=== PATIENT | male | born 1965 | race African-American/Black ===

== ENCOUNTER 2017-04-18 14:58 | Emergency (ER) | payer OTHER ==
[~2017-04-18] VITALS: Ht 182.9 cm; Wt 92.5 kg
[2017-04-18 15:01] VITALS: TEMP 36.9; Ht 182.9 cm; Wt 92.5 kg
--- NOTE | 2017-04-18 15:32 | EMERGENCY ROOM VISIT NOTE ---
History Report prepared by Laith: Berto Phillips Under the Supervision of: Dr. Rema Martinez D.O. First contact with patient: 15:09 Chief Complaint: STROKE SYMPTOMS Stated Complaint: BLACKED OUT, MEMORY LOSS History of Present Illness The patient is a 52 year old male who presents to the Emergency Room with complaints of short term memory loss that occurred today. This has been happening to him since December of 2015. He has episodes where his face goes blank, he begins chewing, and then asks questions asking where he is, why he is there, etc. He has had about 12 episodes over the year, and his notes that they are getting closer together. Today, his sister states this happened again and lasted for 30 minutes. It began about 2 hours ago. She notes that their father has had some short term memory loss in his history as well with three mini strokes. The patient's symptoms have resolved at this time, and he is at baseline. He is experiencing some rhinorrhea. He has a history of prostate cancer with metastasis to the bone and prostatectomy. He was recently on Penicillin for cellulitis on his left foot. On December 06, 2016 he received a MRI of his brain that was unremarkable. states he also had an EEG after that was unremarkable. He has not seen neurology since due to the evaluation of his prostate cancer. He denies any recent illness, but deny any recent medication changes, no recent trauma. Source of History: patient Onset: 2 hours ago Position: other (Mental State) Symptom Intensity: 30 minutes Quality: other (Short term memory loss) Timing: intermittent (since last year), resolved Note: He has some rhinorrhea. He denies any other symptoms. Review of Systems See HPI for pertinent positives & negatives. A total of 10 systems reviewed and were otherwise negative. Past Medical & Surgical Medical Problems: (1) Prostate cancer metastatic to bone Surgical Problems: (1) H/O prostatectomy Family History Omitted secondary to the patient's age. Social History Smoking Status: Former Smoker Drug Use: none Marital Status: Housing Status: lives with family Occupation Status: employed Current/Historical Medications Scheduled B-Complex Vitamins (Vitamin B Complex), 1 TAB PO QAM Bicalutamide (Casodex), 50 MG PO QPM Cephalexin (Keflex), 1 CAP PO BID Cholecalciferol (Vitamin D3), 1,000 INTER.UNIT PO BID Goserelin Acetate (Zoladex), 36 MG IM Q3MO Zoledronic Acid (Reclast), 1 DOSE IV [id number] Allergies Coded Allergies: No Known Allergies (Unverified , 04/18/17) Physical Exam Vital Signs Date Time Temp Pulse Resp B/P (MAP) Pulse Ox O2 Delivery O2 Flow Rate FiO2 04/18/17 18:23 76 18 146/96 98 Room Air 04/18/17 15:22 79 04/18/17 15:01 36.9 78 18 143/91 96 Room Air Physical Exam GENERAL: alert, well appearing, well nourished, no distress, non-toxic EYE EXAM: normal conjunctiva, PERRL and EOM's intact OROPHARYNX: no exudate, no erythema, lips, buccal mucosa, and tongue normal and mucous membranes are moist NECK: supple, no nuchal rigidity, no adenopathy, non-tender LUNGS: Clear to auscultation. Normal chest wall mechanics HEART: no murmurs, S1 normal and S2 normal ABDOMEN: abdomen soft, non-tender, normo-active bowel sounds, no masses, no rebound or guarding. BACK: Back is symmetrical on inspection and there is no deformity, no midline tenderness, no CVA tenderness. SKIN: no rashes and no bruising UPPER EXTREMITIES: upper extremities are grossly normal. LOWER EXTREMITIES: No pitting edema. NEURO EXAM: Normal sensorium, cranial nerves II-XII intact, normal speech, no weakness of arms, no weakness of legs. No drift. Finger to nose intact. Gross sensation intact. NIH stroke score is 0. Medical Decision & Procedures ER Provider Diagnostic Interpretation: Radiology results have been interpreted by the radiologist and reviewed by me. MRI OF THE BRAIN WITHOUT AND WITH IV CONTRAST CLINICAL HISTORY: Acute staring spell. Amnesia. Possible seizure. COMPARISON STUDY: No previous studies for comparison. TECHNIQUE: MRI of the brain was performed from the vertex to the skull base utilizing various T1 and T2 weighted sequences. Following the IV administration of 9 mL of Gadavist contrast, additional enhanced images were obtained. FINDINGS: Sagittal T1, axial diffusion, proton density and T2 weighted axial, coronal FLAIR, and pre and post axial T1-weighted images were acquired. These were supplemented with post gadolinium coronal T1 weighted images. No intra or extra-axial mass lesions are visualized. Axial diffusion-weighted images reveal no evidence of acute or subacute infarction. A linear focus of increased signal on the axial diffusion-weighted images within the right parietal lobe as visualized in image #17 is felt to be artifactual. There is no evidence of ventricular dilatation. Proton density T2-weighted and FLAIR images reveal a few tiny foci of increased FLAIR signal, a finding of doubtful acute clinical significance, and not out of the ordinary for age. The largest is a 3 mm focus located just medial to the left insular cortex. There are no abnormal flow voids. There is no evidence of pathologic enhancement. IMPRESSION: 1. No acute intracranial findings 2. No evidence of intracranial mass 3. No evidence of acute or subacute infarction 4. No evidence of hydrocephalus Electronically signed by: Poncho Villatoro M.D. 04/18/2017 6:19 PM Dictated Date/Time: 04/18/2017 6:14 PM Laboratory Results 04/18/17 15:39 Red Blood Count 4.90, Mean Corpuscular Volume 88.2, Mean Corpuscular Hemoglobin 29.0, Mean Corpuscular Hemoglobin Concent 32.9, Mean Platelet Volume 9.0, Neutrophils (%) (Auto) 60.5, Lymphocytes (%) (Auto) 27.0, Monocytes (%) (Auto) 8.6, Eosinophils (%) (Auto) 3.0, Basophils (%) (Auto) 0.6, Neutrophils # (Auto) 3.88, Lymphocytes # (Auto) 1.73, Monocytes # (Auto) 0.55, Eosinophils # (Auto) 0.19, Basophils # (Auto) 0.04 04/18/17 15:39 Test 04/18/17 15:39 04/18/17 15:51 04/18/17 16:01 White Blood Count 6.41 K/uL (4.8-10.8) Red Blood Count 4.90 M/uL (4.7-6.1) Hemoglobin 14.2 g/dL (14.0-18.0) Hematocrit 43.2 % (42-52) Mean Corpuscular Volume 88.2 fL (80-100) Mean Corpuscular Hemoglobin 29.0 pg (25-34) Mean Corpuscular Hemoglobin Concent 32.9 g/dl (32-36) Platelet Count 255 K/uL (130-400) Mean Platelet Volume 9.0 fL (7.4-10.4) Neutrophils (%) (Auto) 60.5 % Lymphocytes (%) (Auto) 27.0 % Monocytes (%) (Auto) 8.6 % Eosinophils (%) (Auto) 3.0 % Basophils (%) (Auto) 0.6 % Neutrophils # (Auto) 3.88 K/uL (1.4-6.5) Lymphocytes # (Auto) 1.73 K/uL (1.2-3.4) Monocytes # (Auto) 0.55 K/uL (0.11-0.59) Eosinophils # (Auto) 0.19 K/uL (0-0.5) Basophils # (Auto) 0.04 K/uL (0-0.2) RDW Standard Deviation 42.4 fL (36.4-46.3) RDW Coefficient of Variation 13.3 % (11.5-14.5) Immature Granulocyte % (Auto) 0.3 % Immature Granulocyte # (Auto) 0.02 K/uL (0.00-0.02) Anion Gap 5.0 mmol/L (3-11) Est Creatinine Clear Calc Drug Dose 84.3 ml/min Estimated GFR () 87.7 Estimated GFR (Non- 75.7 BUN/Creatinine Ratio 9.8 (10-20) Calcium Level 9.1 mg/dl (8.5-10.1) Magnesium Level 2.3 mg/dl (1.8-2.4) Total Bilirubin 0.3 mg/dl (0.2-1) Aspartate Amino Transf (AST/SGOT) 21 U/L (15-37) Alanine Aminotransferase (ALT/SGPT) 23 U/L (12-78) Alkaline Phosphatase 190 U/L (45-117) Troponin I < 0.015 ng/ml (0-0.045) Total Protein 8.2 gm/dl (6.4-8.2) Albumin 3.8 gm/dl (3.4-5.0) Globulin 4.4 gm/dl (2.5-4.0) Albumin/Globulin Ratio 0.9 (0.9-2) Thyroid Stimulating Hormone (TSH) 2.110 uIu/ml (0.300-4.500) Urine Color YELLOW Urine Appearance CLEAR (CLEAR) Urine pH 5.5 (4.5-7.5) Urine Specific [place] 1.018 (1.000-1.030) Urine Protein NEG (NEG) Urine Glucose (UA) NEG (NEG) Urine Ketones NEG (NEG) Urine Occult Blood TRACE (NEG) Urine Nitrite NEG (NEG) Urine Bilirubin NEG (NEG) Urine Urobilinogen NEG (NEG) Urine Leukocyte Esterase MODERATE (NEG) Urine WBC (Auto) >30 /hpf (0-5) Urine RBC (Auto) 0-4 /hpf (0-4) Urine Hyaline Casts (Auto) 1-5 /lpf (0-5) Urine Epithelial Cells (Auto) 0-5 /lpf (0-5) Urine Bacteria (Auto) 1+ (NEG) Urine Opiates Screen NEG (NEG) Urine Methadone, Qualitative NEG (NEG) Urine Barbiturates NEG (NEG) Urine Phencyclidine (PCP) Level NEG (NEG) Ur Amphetamine/Methamphetamine NEG (NEG) MDMA (Ecstasy) Screen NEG (NEG) Urine Benzodiazepines Screen NEG (NEG) Urine Cocaine Metabolite NEG (NEG) Urine Marijuana (THC) NEG (NEG) Ethyl Alcohol mg/dL < 3.0 mg/dl (0-3) Laboratory results per my review. Medications Administered Medications (Trade) Dose Ordered Sig/Ronald Route Start Time Stop Time Status Last Admin Dose Admin Cephalexin Monohydrate (Keflex Cap) 500 mg NOW ONCE PO 04/18/17 18:30 04/18/17 18:31 DC 04/18/17 19:10 500 MG ECG Indication: other (Stroke-like symptoms) Rate (beats per minute): 68 Rhythm: sinus rhythm Findings: Q waves (lead 3), no acute ischemic change, no ectopy, other (Normal intervals, normal axis) ED Course 1509: The patient was evaluated in room B6. A complete history and physical exam was performed. 1814: Gadavist 9 mmol IV 183: Keflex Cap 500 mg PO 1900: I updated the patient at this time. He feels normal and at baseline. His family confirms. 1916: Upon reevaluation, the patient is feeling better. I discussed the findings and the treatment plan with the patient. He verbalizes agreement and understanding. He was discharged home. Medical Decision Differential diagnosis: Etiologies such as metabolic, infection, hypoglycemia, electrolyte abnormalities , cardiac sources, intracerebral event, toxicologic, neurologic, as well as others were entertained. No evidence of TIA/CVA, symptoms had resolved by the time of my evaluation here. Unclear if possible partial seizures. Doubt infectious etiology, doubt electrolyte etiology, doubt medication reaction, doubt other heavy metal toxicity or toxidrome. Patient well-appearing with a nonfocal and normal neuro exam at bedside. MRI and labs reassuring. Patient plans to return to [place] on Saturday. Given copies of all results and encouraged to follow-up with family doctor and neurology as soon as possible upon arrival home. Given prior prostate surgery and findings on UA, patient covered for possible UTI. I do not feel this is contribute into patient's intermittent lapses in memory over the course of last year. Discussed with him use of antibiotics, close follow- up with his urologist regarding his continued treatment as well as his urinary tract infection. Medication Reconcilliation Current Medication List: was personally reviewed by me Blood Pressure Screening Patient's blood pressure: Elevated blood pressure Blood pressure disposition: Elevated BP felt to be situational Impression Primary Impression: Memory difficulties Additional Impression: UTI (urinary tract infection) Scribe Attestation The scribe's documentation has been prepared under my direction and personally reviewed by me in its entirety. I confirm that the note above accurately reflects all work, treatment, procedures, and medical decision making performed by me. Departure Information Dispostion Home / Self-Care Prescriptions Cephalexin (KEFLEX) 500 Mg Cap 1 CAP PO BID for 7 Days, #14 CAP Prov: Rema Martinez DO 04/18/17 Forms HOME CARE DOCUMENTATION FORM, IMPORTANT VISIT INFORMATION Patient Instructions [facility] Additional Instructions Please follow-up with your doctors in [place] as soon as you return home. Please continue your usual medicines. Please take the antibiotics as prescribed and drink plenty of water. If you develop any recurrent symptoms, develop trouble with speech, walking, weakness, dizziness, vision changes, headaches, fevers, back pain, vomiting, abdominal pain, or you have any other new or concerning symptoms, please return to the emergency room. Problem Qualifiers Additional Impression: UTI (urinary tract infection) Urinary tract infection type: acute cystitis Hematuria presence: with hematuria Qualified Codes: N30.01 - Acute cystitis with hematuria
[2017-04-18 15:58] LABS: BASO % 0.6 %; BASO ABS # 0.04 K/uL (0-0.2); COMPLETE YES; HEMATOCRIT 43.2 % (42-52); IG% 0.3 %; LYMPH ABS # 1.73 K/uL (1.2-3.4); MEAN CELL VOLUME 88.2 fL (80-100); MEAN CORPUSCULAR HGB CONC 32.9 g/dl (32-36); MONO % 8.6 %; NEUT % 60.5 %; PLATELET COUNT 255 K/uL (130-400); WHITE BLOOD COUNT 6.41 K/uL (4.8-10.8)
[2017-04-18] MEDS ORDERED: CHOL1000 PO (15:58)
[2017-04-18] MEDS ORDERED: BICA50TA2 PO (15:58)
[2017-04-18] MEDS ORDERED: ZOLE5INJ IV (15:58)
[2017-04-18] MEDS ORDERED: B-COTAB18 PO (15:58)
[2017-04-18] MEDS ORDERED: GOSE3.6I IM (15:58)
[2017-04-18 16:14] LABS: URINE APPEARANCE CLEAR (CLEAR); URINE BILIRUBIN NEG (NEG); URINE COLOR YELLOW; URINE EPITHELIAL CELL AUTO 0-5 /lpf (0-5); URINE NITRITE NEG (NEG); URINE PH 5.5 (4.5-7.5); URINE SPECIFIC GRAVITY 1.018 (1.000-1.030); UROBILINOGEN NEG (NEG); ZZUR CULT IF INDIC CLEAN CATCH YES
[2017-04-18 16:19] LABS: MANUAL MICROSCOPIC REQUIRED? NO; REVIEW REQ? NO
[2017-04-18 16:28] LABS: ALT/SGPT 23 U/L (12-78); BLOOD UREA NITROGEN 11 mg/dl (7-18); BUN/CREATININE RATIO 9.8 (10-20); CALCIUM 9.1 mg/dl (8.5-10.1); CARBON DIOXIDE 28 mmol/L (21-32); CHLORIDE 104 mmol/L (98-107); GLUCOSE 82 mg/dl (70-99); MAGNESIUM 2.3 mg/dl (1.8-2.4); SODIUM 137 mmol/L (136-145)
[2017-04-18 16:39] LABS: ALB/GLOB RATIO 0.9 (0.9-2); ALKALINE PHOSPHATASE 190 U/L (45-117); AST/SGOT 21 U/L (15-37)
[2017-04-18 16:47] LABS: BENZODIAZEPINE, URINE NEG (NEG); COCAINE,URINE NEG (NEG); PHENCYCLIDINE, URINE NEG (NEG)
[2017-04-18] MEDS ORDERED: GADAVIST IV PRN (18:15)
--- NOTE | 2017-04-18 18:20 | DIAGNOSTIC IMAGING REPORT ---
MRI OF THE BRAIN WITHOUT AND WITH IV CONTRAST CLINICAL HISTORY: Acute staring spell. Amnesia. Possible seizure. COMPARISON STUDY: No previous studies for comparison. TECHNIQUE: MRI of the brain was performed from the vertex to the skull base utilizing various T1 and T2 weighted sequences. Following the IV administration of 9 mL of Gadavist contrast, additional enhanced images were obtained. FINDINGS: Sagittal T1, axial diffusion, proton density and T2 weighted axial, coronal FLAIR, and pre and post axial T1-weighted images were acquired. These were supplemented with post gadolinium coronal T1 weighted images. No intra or extra-axial mass lesions are visualized. Axial diffusion-weighted images reveal no evidence of acute or subacute infarction. A linear focus of increased signal on the axial diffusion-weighted images within the right parietal lobe as visualized in image #17 is felt to be artifactual. There is no evidence of ventricular dilatation. Proton density T2-weighted and FLAIR images reveal a few tiny foci of increased FLAIR signal, a finding of doubtful acute clinical significance, and not out of the ordinary for age. The largest is a 3 mm focus located just medial to the left insular cortex. There are no abnormal flow voids. There is no evidence of pathologic enhancement. IMPRESSION: 1. No acute intracranial findings 2. No evidence of intracranial mass 3. No evidence of acute or subacute infarction 4. No evidence of hydrocephalus Electronically signed by: Poncho Villatoro M.D. 04/18/2017 6:19 PM Dictated Date/Time: 04/18/2017 6:14 PM
[2017-04-18 18:23] VITALS: BP 146/96; PULSE 76; O2SAT 98
[2017-04-18] MEDS ORDERED: CEPHALEXIN MONOHYDRATE 250 MG CAP PO ONE (18:30)
[2017-04-18] MEDS ORDERED: CEPH-571 PO (19:04)
== END 2017-04-18 19:05 | disposition home or self-care (01) ==
LOC: C.EDB 15:00
DX: R41.3 Other amnesia (principal); N30.01 Acute cystitis with hematuria; C61 Malignant neoplasm of prostate; Z87.891 Personal history of nicotine dependence

== ENCOUNTER 2019-05-27 13:34 | Inpatient (IN) ==
[2019-05-27] MEDS ORDERED: SODIUM CHLORIDE 0.9% 1000ML 1,000 ML IV SCH (14:00)
[2019-05-27] MEDS ORDERED: ONDANSETRON INJ 2 MG/ML 2 ML VIAL IV STA (14:05)
[2019-05-27] MEDS ORDERED: HYDROmorphone INJ 1 MG/ML SYRINGE IV PRN (14:05)
[2019-05-27] MEDS ORDERED: SODIUM CHLORIDE 0.9% 250 ML IV PRN ×4 (14:24→23:39)
[2019-05-27 14:30] LABS: INR 1.2 (0.9-1.1); Partial Thromboplastin Time 26.8 Seconds (21.0-31.0); Prothrombin Time 11.9 Seconds (9.0-12.0)
[2019-05-27] MEDS ORDERED: PANTOprazole 80 MG in DEXTROSE 5% 100 ML IV SCH (14:30)
[2019-05-27 14:32] LABS: iSTAT Creatinine 0.6 mg/dl (0.6-1.3); iSTAT Hemoglobin 5.1 g/dl (14.0-18.0); iSTAT Ionized Calcium 1.09 mmol/l (1.12-1.32); iSTAT Potassium 3.4 mEq/L (3.3-5.0)
[2019-05-27 14:40] LABS: Hemoglobin 5.6 g/dL (14.0-18.0); Mean Corpuscular Hemoglobin 29.6 pg (25-34); Mean Corpuscular Hgb Conc 31.1 g/dL (32-36); Mean Corpuscular Volume 95.2 fL (80-100); Mean Platelet Volume 9.5 fL (7.4-10.4); Nucleated RBC # (auto) 0.47 K/uL (0-0); Nucleated RBC % (auto) 7.2 %; Platelet Count 80 K/uL (130-400); RDW Coefficient of Variation 19.8 % (11.5-14.5); RDW Standard Deviation 66.7 fL (36.4-46.3); Red Blood Count 1.89 M/uL (4.7-6.1); White Blood Count 6.46 K/uL (4.8-10.8)
[2019-05-27 14:42] LABS: Alanine Aminotransferase 15 U/L (12-78); Albumin Level 2.9 gm/dl (3.4-5.0); Aspartate Aminotransferase 42 U/L (15-37); BUN Creatinine Ratio 10.1 (10-20); Blood Urea Nitrogen 8 mg/dl (7-18); Calcium 8.3 mg/dl (8.5-10.1); Carbon Dioxide 26 mmol/L (21-32); Chloride 105 mmol/L (98-107); Creatinine Clr Calc Pharmacy 118.7 ml/min; Est GFR (African American) 119.5; Est GFR (Non-African American) 103.1; Glucose 93 mg/dl (70-99); Potassium 3.3 mmol/L (3.5-5.1); Sodium 137 mmol/L (136-145)
[2019-05-27 14:45] LABS: ALC (manual) 0.92 K/uL (1.2-3.4); ANC (manual) 4.11 K/uL (1.4-6.5); Eosinophils # (manual) 0.17 K/uL (0-0.5); Eosinophils % (manual) 2.7 %; Giant Platelets 1+; Lymphocytes # (manual) 0.92 K/uL (1.2-3.4); Lymphocytes % (manual) 14.2 %; Metamyelocytes # (manual) 0.46 K/uL (0-0); Metamyelocytes % (manual) 7.1 %; Monocytes % (manual) 6.2 %; Myelocytes % (manual) 6.2 %; Neutrophils # (manual) 4.11 K/uL (1.4-6.5); Neutrophils % (manual) 63.6 %; Platelet Estimate Decreased (Normal); Tear Drop Cells 2+
[2019-05-27] MEDS ORDERED: PANTOprazole 40 MG in DEXTROSE 5% 100 ML IV SCH (14:45)
[2019-05-27 14:47] LABS: Albumin Globulin Ratio 0.8 (0.9-2); Alkaline Phosphatase 392 U/L (45-117); Bilirubin,Total 0.4 mg/dl (0.2-1); Globulin 3.6 gm/dl (2.5-4.0); Total Protein 6.5 gm/dl (6.4-8.2); Troponin I 0.022 ng/ml (0-0.045)
[2019-05-27 15:16] LABS: Creatine Kinase 96 U/L (39-308); Creatine Kinase MB < 1.0 ng/ml (0.5-3.6)
[2019-05-27] MEDS ORDERED: IOVERSOL 100ml IV PRN (15:19)
--- NOTE | 2019-05-27 15:43 | CT Scan Report ---
CT OF THE HEAD WITHOUT CONTRAST CLINICAL HISTORY: Confusion. Falls. Metastatic prostate cancer. COMPARISON STUDY: MRI of the brain April 18, 2017. TECHNIQUE: Helical axial images of the head were obtained without IV contrast. Automated exposure con trol was utilized for the study. A dose lowering technique was utilized adhering to the principles o f ALARA. FINDINGS: No acute intracranial hemorrhage, midline shift or mass effect is present. The ventricular system is unremarkable. The basilar cisterns are patent. No extra-axial collections are present. Ther e are no findings to suggest acute dural sinus thrombosis or acute territorial infarct. No significan t calvarial abnormalities are present. Note is made of mild sinus mucosal thickening. IMPRESSION: 1. No acute intracranial findings. 2. No calvarial fracture. Electronically signed by: Talib Dye M.D. 05/27/2019 3:42 PM
--- NOTE | 2019-05-27 15:50 | CT Scan Report ---
CT OF THE CERVICAL SPINE WITHOUT CONTRAST CLINICAL HISTORY: Neck pain following falls. Prostate cancer. COMPARISON STUDY: No previous studies for comparison. TECHNIQUE: Helical axial images of the cervical spine were obtained without IV contrast. Sagittal a nd coronal reconstructions were viewed. Automated exposure control was utilized for the study. A do se lowering technique was utilized adhering to the principles of ALARA. FINDINGS: No acute cervical spine fracture is noted. There is slight reversal of the normal cervical lordosis. Moderate multilevel degenerative disc disease and facet arthrosis is present. Several scler otic lesions are noted, most notably within the T1 vertebral body. No pathologic fracture is noted. T here is trace prevertebral edema. IMPRESSION: 1. No acute cervical spine fracture or subluxation. 2. Multiple sclerotic skeletal lesions consistent with skeletal metastatic disease. 3. Trace prevertebral edema, a nonspecific finding. Electronically signed by: Talib Dye M.D. 05/27/2019 3:48 PM
--- NOTE | 2019-05-27 16:04 | CT Scan Report ---
CT OF THE THORACIC SPINE CLINICAL HISTORY: Back pain. Falls. Metastatic prostate cancer. COMPARISON STUDY: No previous studies for comparison. TECHNIQUE: Helical axial images of the thoracic spine were obtained. Sagittal and coronal reconstru ctions were viewed. Automated exposure control was utilized for the study. A dose lowering techniqu e was utilized adhering to the principles of ALARA. FINDINGS: Please note that the chest CT will be reported separately. The thoracic spine is anatomic. There is no acute fracture. Innumerable sclerotic metastases are present. Central canal and neural fo ramen are suboptimally assessed by CT. There is no pathologic fracture. No definite epidural componen t is identified. Small left and trace right pleural effusions are noted. IMPRESSION: 1. No acute thoracic spine fracture. 2. Extensive blastic metastases. No pathologic fracture. 3. Small left and trace right pleural effusions. Electronically signed by: Talib Dye M.D. 05/27/2019 4:03 PM
--- NOTE | 2019-05-27 16:05 | CT Scan Report ---
CT chest w con CLINICAL HISTORY: 54 years-old Male presenting with metastatic prostate cancer. TECHNIQUE: Multidetector CT imaging of the chest was performed after the administration of intravenou s contrast. IV contrast: 94 mL of Optiray 320. One or more dose lowering techniques were used consist ent with the principles of ALARA (as low as reasonably achievable), including automatic exposure cont rol, mA or kV adjustment to individual patient size, and/or use of iterative reconstruction. COMPARISON: None. CT DOSE (mGy.cm): The estimated cumulative dose is 2309.08. 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 Soft tissues: Normal thyroid and thoracic inlet. No axillary, supraclavicular, mediastinal, or hilar lymphadenopathy. Normal aorta. Borderline enlargement of the heart. Trace pericardial effusion. Small left pleural effusion. Trace right pleural effusion. Upper abdomen normal. Lungs and airways: No pneumothorax. Central airways patent. Pulmonary arteries mildly enlarged relati ve to adjacent bronchi. No interlobular septal thickening. Dependent consolidation in the bilateral l ower lobes, left greater than right, likely passive atelectasis in the setting of the effusions. Trac e atelectasis associated with an osseous lesion on the left described below. Musculoskeletal: Sclerotic osseous lesion with periosteal reaction in the extrapleural along of the l ateral left fifth rib. This exerts mild mass effect on the subjacent posterior segment of the left up per lobe. This appears to invade the extrapleural fat. Pleural involvement is difficult to exclude. S everal additional sclerotic lesions are evident without the same degree of periosteal reaction/extrao sseous extension. These are noted in several ribs and vertebral bodies, some examples marked on the i mages the lesions are diffuse. IMPRESSION: 1. Diffuse blastic osseous metastatic disease. The osseous lesion at the lateral left fifth rib has extensive periosteal reaction or extraosseous extension in the extrapleural region. It is difficult t o exclude pleural invasion. 2. No lymphadenopathy or other evidence of intrathoracic metastases. 3. Bilateral pleural effusions, left greater than right. 4. Minimal bibasilar atelectasis. 5. Borderline cardiomegaly. Electronically signed by: Tino Martinez M.D. 05/27/2019 4:04 PM
--- NOTE | 2019-05-27 16:05 | CT Scan Report ---
LUMBAR SPINE CT CT DOSE: HISTORY: Pt co low back pain TECHNIQUE: Multiaxial CT images of the lumbar spine were performed and reformatted in the sagittal an d coronal plane without the use of contrast. A dose lowering technique was utilized adhering to the principles of ALARA. COMPARISON: None. FINDINGS: No acute fracture or subluxation. Multiple scattered osteoblastic metastatic lesions are se en throughout the lumbar spine and sacrum. Focal superior endplate indentations at L2-L3 favor Schmor l's nodes. This spaces are relatively preserved. Mild facet degenerative changes within the lower lum bar spine. Mild to moderate bilateral neural foraminal narrowing within the lower lumbar spine due to the disc bulges and facet hypertrophy. Left-sided nephrolithiasis. Mild subcutaneous edema. IMPRESSION: 1. No acute fracture or subluxation. 2. Multiple scattered osteoblastic metastatic lesions seen throughout the lumbar spine and sacrum. Electronically signed by: Regino Sharif M.D. 05/27/2019 4:04 PM
--- NOTE | 2019-05-27 16:12 | CT Scan Report ---
CT OF THE ABDOMEN AND PELVIS WITH CONTRAST CLINICAL HISTORY: Metastatic prostate cancer. Falls. Confusion. COMPARISON STUDY: None. TECHNIQUE: Following IV administration of 94 mL of Optiray-320, axial images of the abdomen and pelvi s were obtained from the lung bases to the proximal femurs. Images were reviewed in the axial, sagitt al, and coronal planes. IV contrast was administered without complication. Automated exposure contro l was utilized for the study. A dose lowering technique was utilized adhering to the principles of A RIO. FINDINGS: The chest will be reported separately. There is no evidence for traumatic injury to the sahara er, spleen, adrenal glands, kidneys and pancreas. The kidneys are lobulated. A 4 mm left renal calcul us is present. There is no hydronephrosis. There is no evidence for a bowel obstruction. No abdominal or pelvic lymphadenopathy is present. The prostate is surgically absent. Innumerable sclerotic lesio ns are identified within visualized skeletal structures. No acute fracture is identified. Mild loss o f height involving the superior endplates of several lumbar vertebra is noted. This finding is not ac narda. IMPRESSION: 1. No acute traumatic findings within the abdomen or pelvis. 2. Extensive skeletal metastases. 3. 4 mm left renal calculus. Electronically signed by: Talib Dye M.D. 05/27/2019 4:11 PM
--- NOTE | 2019-05-27 16:54 | Emergency Department Note ---
Entered by Rip Boyd acting as a scribe for Ruslan Deleon MD History of Present Illness General Chief complaint: Shortness of Breath/Dyspnea Stated complaint: SOB, HGB OF 5 Source: patient History of Present Illness Onset (ago): day(s) 1 Location: abdomen Pain Consistency: + other (two episodes) Maximum Pain Intensity: 5 Quality: + other (black, tarry stool ) Associated symptoms: + other (+low hemoglbin; +lower back pain; -abdominal pain ) The patient is a 54 year old male, with past medical history of metastatic prostate cancer and transient epileptic amnesia, who presents to the Emergency Room with complaints of two episodes of black, tarry stool beginning yesterday. The patient states he was referred to the ED from Dr. Benites's office after his hemoglobin was found to be 5 at his office. The patient also notes he has had intermittent lower back pain over the past month. The patient reports he used to see Dr. Montejo to manage his prostate cancer back in 2016. The patient notes he has been in [place] since for cancer treatment. The patient notes he had a blood transfusion in the past in December of 2016. The patient denies abdominal pain. Home Medications Home Medications Medication Instructions Recorded Confirmed Type cod liver oil 1 cap PO QAM 05/27/19 05/27/19 History epoetin neptali [Epogen] 4,000 unit SUBCUT MOWEFR 05/27/19 05/27/19 History ferrous sulfate 325 mg PO QAM 05/27/19 05/27/19 History goserelin [Zoladex] 3.6 mg SUBCUT MONTHLY 05/27/19 05/27/19 History morphine 10 mg PO UD PRN 05/27/19 05/27/19 History morphine 60 mg PO Q12H 05/27/19 05/27/19 History multivitamin 1 tab PO QAM 05/27/19 05/27/19 History oxcarbazepine [Trileptal] 300 mg PO BID 05/27/19 05/27/19 History Allergies Allergy/AdvReac Type Severity Reaction Status Date / Time No Known Allergies Allergy Unverified 05/27/19 14:46 Past Med/Surg History Medical History Prostate cancer metastatic to bone (Chronic) Family History Other No significant family history Social History Preferred Language: Irish Communication Ability: Effective Patternmaker Bench Required: No Beliefs That Will Affect Care: None Current Living Situation: Spouse Feels Safe at Home: Yes Smoking Status: Former smoker Hx Alcohol Use: No Hx Substance Use: No Review of Systems See HPI for pertinent positives & negatives. and A total of 10 systems reviewed and were otherwise negative Physical Exam Vital Signs Vital Signs - 24 hr 05/27/19 13:38 05/27/19 15:15 Temperature 36.7 C Temperature Source Oral Sepsis Recent Fever Within 48 Hours No Sepsis New/Unexplained Change in Mental Status No Sepsis Action Taken by Nursing No Action Required Pulse Rate 90 Pulse Rate [Right Finger] 72 Respiratory Rate 16 18 Blood Pressure 124/69 Blood Pressure [Right Arm] 138/77 Blood Pressure Mean 87 Blood Pressure Mean [Right Arm] 97 Pulse Oximetry 99 98 Oxygen Delivery Method Room Air GENERAL: Awake, alert, pale in appearance, in no acute distress HENT: Normocephalic, atraumatic. Oropharynx unremarkable. EYES: Normal conjunctiva. Sclera non-icteric. NECK: Supple. No nuchal rigidity. FROM. No JVD. RESPIRATORY: Clear to auscultation. CARDIAC: Regular rate, normal rhythm. Extremities warm and well perfused. Pulses equal. ABDOMEN: Soft, non-distended. No tenderness to palpation. No rebound or guarding. No masses. RECTAL: Black, tarry stool, heme positive. No masses felt. MUSCULOSKELETAL: Chest examination reveals no tenderness. The back is symmetrical on inspection without obvious abnormality. There is no CVA tenderness to palpation. No joint edema. LOWER EXTREMITIES: Calves are equal size bilaterally and non-tender. No edema. No discoloration. NEURO: Normal sensorium. No sensory or motor deficits noted. SKIN: No rash or jaundice noted. Course 1354: Past medical records reviewed. The patient was evaluated in room C3. A complete history and physical exam was performed. 1515: I reviewed the patient's case with Dr. Gaspra[facility] Hospitalist. Dr. Gaspar will evaluate the patient for further management. Consultations Consultation #1: I reviewed the patient's case with Dr. Gaspar-[facility] Hospitalist. Dr. Gaspar will evaluate the patient for further management. Time: 15:15 Administered Medications Acetaminophen (Tylenol) 650 mg PO Q4H PRN PRN Reason: Pain or Fever Stop: 06/26/19 18:02 Last Admin: 05/29/19 13:58 Dose: 650 mg Documented by: [id number] Admin: 05/29/19 08:12 Dose: 650 mg Documented by: [id number] Admin: 05/28/19 19:33 Dose: 650 mg Documented by: [id number] Admin: 05/28/19 10:30 Dose: 650 mg Documented by: [id number] Admin: 05/27/19 22:34 Dose: 650 mg Documented by: [id number] Acetaminophen (Tylenol) 650 mg PO Q4H PRN PRN Reason: Pain Stop: 06/27/19 19:22 Last Admin: 05/29/19 03:56 Dose: 650 mg Documented by: [id number] Ferrous Sulfate (Feosol) 325 mg PO QAM [facility] Stop: 06/27/19 08:59 Last Admin: 05/29/19 08:13 Dose: 325 mg Documented by: [id number] Admin: 05/28/19 11:27 Dose: Not Given Documented by: [id number] Sodium Chloride (Nss 1000ml) 1,000 mls @ 80 mls/hr IV .[id number] JEREMÍAS Stop: 06/27/19 11:29 Last Infusion: 05/29/19 14:01 Dose: 80 mls/hr Documented by: [id number] Admin: 05/29/19 14:00 Dose: 15 mls/hr Documented by: [id number] Infusion: 05/29/19 14:00 Dose: 80 mls/hr Documented by: [id number] Infusion: 05/29/19 11:07 Dose: 15 mls/hr Documented by: [id number] Admin: 05/29/19 01:48 Dose: 80 mls/hr Documented by: [id number] Infusion: 05/29/19 01:48 Dose: 80 mls/hr Documented by: [id number] Infusion: 05/28/19 13:19 Dose: 0 mls/hr Documented by: [id number] Admin: 05/28/19 12:19 Dose: 80 mls/hr Documented by: [id number] Morphine Sulfate (Ms Contin) 60 mg PO Q12H JEREMÍAS Stop: 06/26/19 18:55 Last Admin: 05/29/19 06:29 Dose: 60 mg Documented by: [id number] Admin: 05/28/19 18:32 Dose: 60 mg Documented by: [id number] Admin: 05/28/19 06:25 Dose: 60 mg Documented by: [id number] Admin: 05/27/19 21:24 Dose: 60 mg Documented by: [id number] Morphine Sulfate (Roxanol) 10 mg PO TID PRN PRN Reason: Breakthrough Pain Stop: 06/10/19 18:55 Last Admin: 05/29/19 13:59 Dose: 10 mg Documented by: [id number] Admin: 05/29/19 08:12 Dose: 10 mg Documented by: [id number] Morphine Sulfate (Roxanol) 5 mg PO Q4H PRN PRN Reason: Pain Stop: 06/11/19 19:48 Last Admin: 05/29/19 01:48 Dose: 5 mg Documented by: [id number] Multivitamins (Multivitamin Tab) 1 tab PO QAM JEREMÍAS Stop: 06/27/19 08:59 Last Admin: 05/29/19 08:13 Dose: 1 tab Documented by: [id number] Admin: 05/28/19 11:27 Dose: Not Given Documented by: [id number] Ondansetron HCl (Zofran) 4 mg IV Q6H PRN PRN Reason: Nausea Stop: 06/26/19 18:02 Last Admin: 05/28/19 08:49 Dose: 4 mg Documented by: [id number] Oxcarbazepine (Trileptal) 300 mg PO BID [facility] Stop: 06/26/19 20:59 Last Admin: 05/29/19 08:13 Dose: 300 mg Documented by: [id number] Admin: 05/28/19 20:31 Dose: 300 mg Documented by: [id number] Admin: 05/28/19 10:59 Dose: 300 mg Documented by: [id number] Admin: 05/27/19 21:20 Dose: 300 mg Documented by: [id number] Polyethylene Glycol (Miralax Powder Packet) 17 gm PO DAILY [facility] Stop: 06/26/19 18:14 Last Admin: 05/29/19 08:14 Dose: 17 gm Documented by: [id number] Admin: 05/28/19 11:27 Dose: Not Given Documented by: [id number] Admin: 05/27/19 21:25 Dose: 17 gm Documented by: [id number] Discontinued Medications Hydromorphone HCl (Dilaudid) 1 mg IV Q15M PRN PRN Reason: Pain Stop: 06/10/19 14:04 Last Admin: 05/27/19 14:52 Dose: 1 mg Documented by: [id number] Sodium Chloride (Nss 1000ml) 1,000 mls @ 100 mls/hr IV .Q10H [facility] Stop: 05/27/19 23:59 Last Infusion: 05/27/19 18:25 Dose: 0 mls/hr Documented by: [id number] Admin: 05/27/19 14:52 Dose: 100 mls/hr Documented by: [id number] Pantoprazole Sodium 80 mg/ (Dextrose) 120 mls @ 480 mls/hr IV TODAY@1430 [facility] Stop: 05/27/19 14:44 Last Infusion: 05/27/19 16:02 Dose: 0 mls/hr Documented by: [id number] Admin: 05/27/19 15:47 Dose: 480 mls/hr Documented by: [id number] Pantoprazole Sodium 40 mg/ (Dextrose) 100 mls @ 20 mls/hr IV Q5H [facility] Stop: 06/26/19 14:44 Last Infusion: 05/27/19 21:31 Dose: 0 mls/hr Documented by: [id number] Infusion: 05/27/19 18:24 Dose: 0 mls/hr Documented by: [id number] Admin: 05/27/19 16:03 Dose: 20 mls/hr Documented by: [id number] Famotidine 20 mg/ Syringe 5 mls @ 2.5 mls/min IV ONE ONE Stop: 05/27/19 22:46 Last Admin: 05/27/19 23:20 Dose: 2.5 mls/min Documented by: [id number] Furosemide 20 mg/ Syringe 2 mls @ 4 mls/min IV ONE ONE Stop: 05/28/19 00:01 Last Admin: 05/27/19 23:58 Dose: 4 mls/min Documented by: [id number] Famotidine 20 mg/ Syringe 5 mls @ 2.5 mls/min IV Q12H [facility] Stop: 06/27/19 11:29 Last Admin: 05/28/19 12:19 Dose: Not Given Documented by: [id number] Promethazine HCl 12.5 mg/ (Sodium Chloride) 50.5 mls @ 202 mls/hr IV NOW STA Stop: 05/28/19 11:59 Last Infusion: 05/28/19 12:30 Dose: 0 mls/hr Documented by: [id number] Admin: 05/28/19 12:11 Dose: 202 mls/hr Documented by: [id number] Pantoprazole Sodium 40 mg/ (Dextrose) 100 mls @ 20 mls/hr IV Q5H JER[facility]AS Stop: 06/27/19 11:59 Last Infusion: 05/29/19 08:24 Dose: 0 mls/hr Documented by: [id number] Admin: 05/29/19 04:17 Dose: 20 mls/hr Documented by: [id number] Infusion: 05/29/19 04:17 Dose: 20 mls/hr Documented by: [id number] Admin: 05/28/19 23:35 Dose: 20 mls/hr Documented by: [id number] Infusion: 05/28/19 23:32 Dose: 20 mls/hr Documented by: [id number] Admin: 05/28/19 18:32 Dose: 20 mls/hr Documented by: [id number] Infusion: 05/28/19 18:32 Dose: 0 mls/hr Documented by: [id number] Infusion: 05/28/19 13:19 Dose: 0 mls/hr Documented by: [id number] Admin: 05/28/19 12:44 Dose: 20 mls/hr Documented by: [id number] Ioversol (Optiray 320 100ml) 94 ml IV ONCE PRN PRN Reason: Interaction Checking Stop: 05/31/19 15:18 Last Admin: 05/27/19 15:19 Dose: 94 ml Documented by: [id number] Lidocaine HCl (Xylocaine 2%) Confirm Administered Dose 2 ml INFIL .STK-MED ONE Stop: 05/28/19 13:29 Last Admin: 05/28/19 16:57 Dose: Not Given Documented by: [id number] Ondansetron HCl (Zofran) 4 mg IV NOW STA Stop: 05/27/19 14:06 Last Admin: 05/27/19 14:52 Dose: 4 mg Documented by: [id number] Ondansetron HCl (Zofran) Confirm Administered Dose 4 mg .ROUTE .STK-MED ONE Stop: 05/28/19 14:11 Last Admin: 05/28/19 16:57 Dose: Not Given Documented by: [id number] Propofol (Diprivan) Confirm Administered Dose 200 mg IV .STK-MED ONE Stop: 05/28/19 13:29 Last Admin: 05/28/19 16:57 Dose: Not Given Documented by: [id number] Medical Decision Making Differential Diagnosis Differential diagnosis: Etiologies such as diverticulosis, AVM, coagulopathy, colitis, inflammatory bowel disease, malignancy, Betty-Huerta tear, esophagitis, peptic ulcer disease, variceal bleed, gastritis, epistaxis, fissure, hemorrhoids, aswell as others were entertained. Medical Records Attestation: I reviewed the patient's medical records. Home Medications Current Medication List: was personally reviewed by me Laboratory Data Attestation: I reviewed the patient's lab results. Result diagrams: 05/29/19 05:52 05/29/19 05:52 Lab Results 05/27/19 05/27/19 05/27/19 Range/Units 13:49 14:06 14:06 WBC 6.46 (4.8-10.8) K/uL RBC 1.89 L (4.7-6.1) M/uL Hgb 5.6 L* (14.0-18.0) g/dL POC Hgb (14.0-18.0) g/dl Hct 18.0 L* (42-52) % POC Hct (42-52) % MCV 95.2 (80-100) fL MCH 29.6 (25-34) pg MCHC 31.1 L (32-36) g/dL RDW Std Deviation 66.7 H (36.4-46.3) fL RDW Coeff of Douglas 19.8 H (11.5-14.5) % Plt Count 80 L (130-400) K/uL MPV 9.5 (7.4-10.4) fL Absolute Nucleated RBC 0.47 H (0-0) K/uL Nucleated RBC % (auto) 7.2 % Neutrophils % (Manual) 63.6 % Lymphocytes % (Manual) 14.2 % Monocytes % (Manual) 6.2 % Eosinophils % (Manual) 2.7 % Metamyelocytes % (Man) 7.1 % Myelocytes % (Man) 6.2 % Neutrophils # (Manual) 4.11 (1.4-6.5) K/uL Total Absolute Neuts 4.11 (1.4-6.5) K/uL Lymphocytes # (Manual) 0.92 L (1.2-3.4) K/uL Total Abs Lymphocytes 0.92 L (1.2-3.4) K/uL Monocytes # (Manual) 0.40 (0.11-0.59) K/uL Eosinophils # (Manual) 0.17 (0-0.5) K/uL Metamyelocytes # (Man) 0.46 H (0-0) K/uL Myelocytes # (Manual) 0.40 H (0-0) K/uL Platelet Estimate Decreased L (Normal) Giant Platelets 1+ Tear Drop Cells 2+ PT 11.9 (9.0-12.0) Seconds INR 1.2 H (0.9-1.1) APTT 26.8 (21.0-31.0) Seconds PTT Ratio 1.0 POC Sodium (135-144) mEq/L Sodium (136-145) mmol/L POC Potassium (3.3-5.0) mEq/L Potassium (3.5-5.1) mmol/L POC Chloride (101-112) mEq/L Chloride (98-107) mmol/L Carbon Dioxide (21-32) mmol/L POC Total CO2 (24-31) mEq/l Anion Gap (3-11) POC Anion Gap (16-25) mmol/L POC BUN (7-18) mg/dl BUN (7-18) mg/dl Creatinine (0.6-1.4) mg/dl POC Creatinine (0.6-1.3) mg/dl Est Cr Clr Drug Dosing ml/min Est GFR ( Amer) Est GFR (Non-Af Amer) BUN/Creatinine Ratio (10-20) Glucose (70-99) mg/dl POC Glucose (other) (70-99) mg/dl Calcium (8.5-10.1) mg/dl POC Ioniz Calcium Nathaly (1.12-1.32) mmol/l Total Bilirubin (0.2-1) mg/dl AST (15-37) U/L ALT (12-78) U/L Alkaline Phosphatase (45-117) U/L Total Creatine Kinase (39-308) U/L CK-MB (CK-2) (0.5-3.6) ng/ml CK/CKMB % Calc Troponin I (0-0.045) ng/ml Total Protein (6.4-8.2) gm/dl Albumin (3.4-5.0) gm/dl Globulin (2.5-4.0) gm/dl Albumin/Globulin Ratio (0.9-2) Hepatitis C Ab Screen Neg (Neg) Blood Type Blood Type Recheck Antibody Screen Crossmatch 05/27/19 05/27/19 05/27/19 Range/Units 14:06 14:06 14:06 WBC (4.8-10.8) K/uL RBC (4.7-6.1) M/uL Hgb (14.0-18.0) g/dL POC Hgb (14.0-18.0) g/dl Hct (42-52) % POC Hct (42-52) % MCV (80-100) fL MCH (25-34) pg MCHC (32-36) g/dL RDW Std Deviation (36.4-46.3) fL RDW Coeff of Douglas (11.5-14.5) % Plt Count (130-400) K/uL MPV (7.4-10.4) fL Absolute Nucleated RBC (0-0) K/uL Nucleated RBC % (auto) % Neutrophils % (Manual) % Lymphocytes % (Manual) % Monocytes % (Manual) % Eosinophils % (Manual) % Metamyelocytes % (Man) % Myelocytes % (Man) % Neutrophils # (Manual) (1.4-6.5) K/uL Total Absolute Neuts (1.4-6.5) K/uL Lymphocytes # (Manual) (1.2-3.4) K/uL Total Abs Lymphocytes (1.2-3.4) K/uL Monocytes # (Manual) (0.11-0.59) K/uL Eosinophils # (Manual) (0-0.5) K/uL Metamyelocytes # (Man) (0-0) K/uL Myelocytes # (Manual) (0-0) K/uL Platelet Estimate (Normal) Giant Platelets Tear Drop Cells PT (9.0-12.0) Seconds INR (0.9-1.1) APTT (21.0-31.0) Seconds PTT Ratio POC Sodium (135-144) mEq/L Sodium 137 (136-145) mmol/L POC Potassium (3.3-5.0) mEq/L Potassium 3.3 L (3.5-5.1) mmol/L POC Chloride (101-112) mEq/L Chloride 105 (98-107) mmol/L Carbon Dioxide 26 (21-32) mmol/L POC Total CO2 (24-31) mEq/l Anion Gap 6.0 (3-11) POC Anion Gap (16-25) mmol/L POC BUN (7-18) mg/dl BUN 8 (7-18) mg/dl Creatinine 0.74 (0.6-1.4) mg/dl POC Creatinine (0.6-1.3) mg/dl Est Cr Clr Drug Dosing 118.7 ml/min Est GFR ( Amer) 119.5 Est GFR (Non-Af Amer) 103.1 BUN/Creatinine Ratio 10.1 (10-20) Glucose 93 (70-99) mg/dl POC Glucose (other) (70-99) mg/dl Calcium 8.3 L (8.5-10.1) mg/dl POC Ioniz Calcium Nathaly (1.12-1.32) mmol/l Total Bilirubin 0.4 (0.2-1) mg/dl AST 42 H (15-37) U/L ALT 15 (12-78) U/L Alkaline Phosphatase 392 H (45-117) U/L Total Creatine Kinase 96 Cancelled (39-308) U/L CK-MB (CK-2) < 1.0 Cancelled (0.5-3.6) ng/ml CK/CKMB % Calc TNP Cancelled Troponin I 0.022 (0-0.045) ng/ml Total Protein 6.5 (6.4-8.2) gm/dl Albumin 2.9 L (3.4-5.0) gm/dl Globulin 3.6 (2.5-4.0) gm/dl Albumin/Globulin Ratio 0.8 L (0.9-2) Hepatitis C Ab Screen (Neg) Blood Type O Positive Blood Type Recheck Antibody Screen NEGATIVE Crossmatch See Detail 05/27/19 05/27/19 Range/Units 14:17 15:49 WBC (4.8-10.8) K/uL RBC (4.7-6.1) M/uL Hgb (14.0-18.0) g/dL POC Hgb 5.1 L* (14.0-18.0) g/dl Hct (42-52) % POC Hct 15 L* (42-52) % MCV (80-100) fL MCH (25-34) pg MCHC (32-36) g/dL RDW Std Deviation (36.4-46.3) fL RDW Coeff of Douglas (11.5-14.5) % Plt Count (130-400) K/uL MPV (7.4-10.4) fL Absolute Nucleated RBC (0-0) K/uL Nucleated RBC % (auto) % Neutrophils % (Manual) % Lymphocytes % (Manual) % Monocytes % (Manual) % Eosinophils % (Manual) % Metamyelocytes % (Man) % Myelocytes % (Man) % Neutrophils # (Manual) (1.4-6.5) K/uL Total Absolute Neuts (1.4-6.5) K/uL Lymphocytes # (Manual) (1.2-3.4) K/uL Total Abs Lymphocytes (1.2-3.4) K/uL Monocytes # (Manual) (0.11-0.59) K/uL Eosinophils # (Manual) (0-0.5) K/uL Metamyelocytes # (Man) (0-0) K/uL Myelocytes # (Manual) (0-0) K/uL Platelet Estimate (Normal) Giant Platelets Tear Drop Cells PT (9.0-12.0) Seconds INR (0.9-1.1) APTT (21.0-31.0) Seconds PTT Ratio POC Sodium 138 (135-144) mEq/L Sodium (136-145) mmol/L POC Potassium 3.4 (3.3-5.0) mEq/L Potassium (3.5-5.1) mmol/L POC Chloride 101 (101-112) mEq/L Chloride (98-107) mmol/L Carbon Dioxide (21-32) mmol/L POC Total CO2 26 (24-31) mEq/l Anion Gap (3-11) POC Anion Gap 15.0 L (16-25) mmol/L POC BUN 5 L (7-18) mg/dl BUN (7-18) mg/dl Creatinine (0.6-1.4) mg/dl POC Creatinine 0.6 (0.6-1.3) mg/dl Est Cr Clr Drug Dosing ml/min Est GFR ( Amer) Est GFR (Non-Af Amer) BUN/Creatinine Ratio (10-20) Glucose (70-99) mg/dl POC Glucose (other) 95 (70-99) mg/dl Calcium (8.5-10.1) mg/dl POC Ioniz Calcium Nathaly 1.09 L (1.12-1.32) mmol/l Total Bilirubin (0.2-1) mg/dl AST (15-37) U/L ALT (12-78) U/L Alkaline Phosphatase (45-117) U/L Total Creatine Kinase (39-308) U/L CK-MB (CK-2) (0.5-3.6) ng/ml CK/CKMB % Calc Troponin I (0-0.045) ng/ml Total Protein (6.4-8.2) gm/dl Albumin (3.4-5.0) gm/dl Globulin (2.5-4.0) gm/dl Albumin/Globulin Ratio (0.9-2) Hepatitis C Ab Screen (Neg) Blood Type Blood Type Recheck O Positive Antibody Screen Crossmatch ECG Data Attestation: I personally reviewed and interpreted this ECG as follows: Indication: back/shoulder pain Rate (beats per minute): 92 Rhythm: normal sinus Findings: + other (QTC 489) and + prolonged QT; no ST depression and no ST elevation Blood Pressure Blood Pressure Findings: Elevated blood pressure Blood Pressure Disposition: further management by hospitalist [place] Narrative This is a 54-year-old male who presents emergency department anemic and complaining of low back pain. Using shared medical decision-making with both patient and family decision was made to send the patient for CAT scan of the head chest abdomen pelvis due to his known proximal metastatic prostate cancer. He was typed and crossed for 1 unit of packed red blood cells and placed on a Protonix bolus and drip. Based on all these findings I did discuss the case with the hospitalist service who agreed to admit the patient. Patient was in agreement with the treatment plan. Impression & Plan Prostate cancer metastatic to bone, Severe anemia, Melena Critical Care Time Critical Care Time: Yes Total Critical Care Time: 90 I have personally spent 90 minutes of critical care time in the direct management of this patient. This includes bedside care, interpretation of diagnostic studies, and testing, discussion with consultants, patient, and [facility] ly members, and other required patient management activities. This 90 minutes is in excess of all separately billable procedures. Discharge Plan Visit Data *Final* Discharge Date/Time: 05/27/19 18:34 Chief Complaint: Shortness of Breath/Dyspnea Stated Complaint: SOB, HGB OF 5 ED Provider: Ruslan Deleon Discharge Problem: Prostate cancer metastatic to bone, Severe anemia, Melena Patient Disposition: Admitted As Inpatient Discharge Instructions Interventions: ED Discharge Assessment Last Done: 05/27/19 18:34 The scribe's documentation has been prepared under my direction and personally reviewed by me in its entirety. I confirm that the note above accurately reflects all work, treatment, procedures, and medical decision making performed by me.
[2019-05-27] MEDS ORDERED: ZOLPIDEM TARTRATE 5 MG TAB PO PRN (18:03)
[2019-05-27] MEDS ORDERED: ALUMINUM/MAGNESIUM SUSP 30 ML UDC PO PRN (18:03)
[2019-05-27] MEDS ORDERED: MAGNESIUM HYDROXIDE SUSP 30 ML UDC PO PRN (18:03)
--- NOTE | 2019-05-27 18:18 | History & Physical Report ---
Date of Service May 27, 2019 Assessment & Plan (1) Severe anemia: Admits to PCU on telemetry Continue monitoring H&H every 6 hours We are giving the second unit of blood with 20 mg of Lasix IV in between Continue monitoring for volume overload Keep H&H above 8 BNP borderline DVT prophylaxis SCDs and teds Patient is full code Consult hematology oncology Dr. Brewer Present on Admission?: Yes (2) Prostate cancer metastatic to bone: See above Present on Admission?: Yes (3) Pleural effusion: Monitor for volume overload Present on Admission?: Yes History of Present Illness Chief Complaint: Severe anemia Primary Care Provider: Hussein Luevano MD Patient is a 54 years old male with past medical history of metastatic prostate cancer and transient epileptic amnesia, who presented to the emergency room with complaints of 2 episodes of black tarry stool that started yesterday. Patient states that he was referred to the ER by Dr. mariana Porter's office after his hemoglobin was found to be 5 at his office. The patient also noted that he had intermittent lower back pain for the past months. The patient reports that he used to see Dr. Montejo to manage the prostate cancer back in 2016 when was prostate cancer discovered. The patient notes that he has been in [place] since for the cancer treatment he was treated over there with Docetaxyl 2 cycles(2106), Zytiga 6 months(2017)Docetaxyl (4 treatments in 2018) and Zytiga 1 month in March 2019. Last blood transfusion was in December 2016. Patient denies fever chills, headache, chest pain, shortness of breath, frequency, urgency, abdominal pain, heat hematuria, hematochezia. Patient reports melena. Decision was made to start 1 unit of blood while patient in the ER and while BNP was pending to determine if patient also has CHF exacerbation since his lower extremity's were with mild pitting edema. Labs were reviewed which shows white blood cell 5.3, hemoglobin six 5.6, hematocrit 18, platelets 80, PT 11.9, INR 1.2, APTT 26.8. Sodium 138, potassium 3.4, creatinine 0.6, BNP 841. Abdominal x-rays significant for extensive skeletal metastasis and 4 mm left renal calculus, head CT no acute intracranial, chest x-rays no lymphadenopathy or other evidence of intrathoracic metastasis. Bilateral pleural effusion, left greater than right. Minimal basilar atelectasis. Borderline cardiomegaly. Finding decision was made to admit patient to the PCU telemetry give blood transfusion and further work-up for metastatic prostate cancer. Allergies Allergy/AdvReac Type Severity Reaction Status Date / Time No Known Allergies Allergy Unverified 05/27/19 14:46 Home Medications Home Medications Medication Instructions Recorded Confirmed Type cod liver oil 1 cap PO QAM 05/27/19 05/27/19 History epoetin neptali [Epogen] 4,000 unit SUBCUT MOWEFR 05/27/19 05/27/19 History ferrous sulfate 325 mg PO QAM 05/27/19 05/27/19 History goserelin [Zoladex] 3.6 mg SUBCUT MONTHLY 05/27/19 05/27/19 History morphine 10 mg PO UD PRN 05/27/19 05/27/19 History morphine 60 mg PO Q12H 05/27/19 05/27/19 History multivitamin 1 tab PO QAM 05/27/19 05/27/19 History oxcarbazepine [Trileptal] 300 mg PO BID 05/27/19 05/27/19 History Past Med/Surg History Medical History Prostate cancer metastatic to bone (Chronic) Family History Other No significant family history Social History Preferred Language: Yi Communication Ability: Effective Admeasurer Required: No Beliefs That Will Affect Care: None Current Living Situation: Spouse Other Information That Helps Us Care for You: No Feels Safe at Home: Yes Safety Concerns: Feels Safe At This Time Smoking Status: Former smoker Hx Alcohol Use: No Hx Substance Use: No Review of Systems Review of Systems: All systems reviewed & are unremarkable except as noted in HPI & below Physical Exam Constitutional: WD/WN, vitals as above well developed Eyes: PERRL, conjunctivae normal, anicteric sclerae ENMT: external ear and nose normal, oropharynx normal Neck: trachea midline, no thyromegaly Respiratory: Auscultation: + crackles and + wheezes Cardiovascular: Heart Sounds: normal S1, normal S2 and + murmur Palpation: + palpable S3 Gastrointestinal (Abdomen): normal bowel sounds, soft, nontender, no hepatosplenomegaly Musculoskeletal: no cyanosis or clubbing, extremities motor strength 5/5 Skin: no rashes, warm and dry Neurologic: patellar DTR's 2+ bilat, sensation intact Psychiatric: A+Ox3, euthymic affect Lymphatic: no cervical or axillary lymphadenopathy Results & Data Vital Signs (Past 12 Hours) Vital Signs Temp Pulse Pulse Resp BP BP Pulse Ox 05/27/19 17:30 88 20 130/67 98 05/27/19 15:15 72 18 138/77 98 05/27/19 13:38 36.7 C 90 16 124/69 99 Code Status & VTE Plan Code Status Full code VTE Prophylaxis Plan VTE Prophylaxis will be ordered: No PG Care Time/CCT Total # of Minutes Spent Total Time Spent with Patient: Total time spent is greater than 50% in coordination of care (as documented) at patient's floor/unit and/or counseling patient:
[2019-05-27] MEDS ORDERED: GOSERELIN 3.6 MG SQ SCH (18:56)
[2019-05-27] MEDS: OXcarbazepine 150 MG TABLET PO SCH (21:20)
[2019-05-27] MEDS: MoRPHine SULFATE CR 60 MG TABCR PO SCH (21:24)
[2019-05-27] MEDS: POLYETHYLENE (MIRALAX) 17 GM PACK PO SCH (21:25)
[2019-05-27 21:37] LABS: Hematocrit (blood only) 19.5 % (42-52); Mean Corpuscular Hemoglobin 29.6 pg (25-34); Mean Corpuscular Hgb Conc 30.8 g/dL (32-36); Mean Corpuscular Volume 96.1 fL (80-100); Mean Platelet Volume 10.3 fL (7.4-10.4); Nucleated RBC # (auto) 0.48 K/uL (0-0); Platelet Count 69 K/uL (130-400); RDW Standard Deviation 64.1 fL (36.4-46.3); Red Blood Count 2.03 M/uL (4.7-6.1)
[2019-05-27 22:17] LABS: ALC (manual) 0.74 K/uL (1.2-3.4); ANC (manual) 3.35 K/uL (1.4-6.5); Basophils % (manual) 1.8 %; Eosinophils # (manual) 0.28 K/uL (0-0.5); Eosinophils % (manual) 5.3 %; Giant Platelets 1+; Lymphocytes # (manual) 0.74 K/uL (1.2-3.4); Metamyelocytes # (manual) 0.19 K/uL (0-0); Metamyelocytes % (manual) 3.5 %; Monocytes # (manual) 0.32 K/uL (0.11-0.59); Monocytes % (manual) 6.1 %; Myelocytes # (manual) 0.32 K/uL (0-0); Myelocytes % (manual) 6.1 %; Neutrophils # (manual) 3.35 K/uL (1.4-6.5); Neutrophils % (manual) 63.2 %; Tear Drop Cells 1+
[2019-05-27] MEDS ORDERED: FAMOTIDINE 20MG/5ML IV PUSH IV STA (22:23)
[2019-05-27] MEDS: ACETAMINOPHEN 325 MG TAB PO PRN (22:34)
[2019-05-27] MEDS ORDERED: FAMOTIDINE 20 MG in SYRINGE 3 ML IV ONE (22:45)
[2019-05-28] MEDS ORDERED: FUROSEMIDE 20 MG in SYRINGE 0 ML IV ONE
[2019-05-28 03:39] LABS: Mean Corpuscular Hgb Conc 31.8 g/dL (32-36)
[2019-05-28 03:58] LABS: Albumin Level 2.6 gm/dl (3.4-5.0); BUN Creatinine Ratio 6.4 (10-20); Calcium 7.9 mg/dl (8.5-10.1); Creatinine Clr Calc Pharmacy 117.1 ml/min; Est GFR (African American) 118.9; Est GFR (Non-African American) 102.5; Potassium 3.6 mmol/L (3.5-5.1)
[2019-05-28 04:01] LABS: Albumin Globulin Ratio 0.7 (0.9-2); Bilirubin,Total 0.4 mg/dl (0.2-1); Globulin 3.5 gm/dl (2.5-4.0); Total Protein 6.1 gm/dl (6.4-8.2)
[2019-05-28 04:10] LABS: Hematocrit (blood only) 22.3 % (42-52); Hemoglobin 7.1 g/dL (14.0-18.0); Mean Corpuscular Volume 94.1 fL (80-100); Mean Platelet Volume 9.7 fL (7.4-10.4); Platelet Count 70 K/uL (130-400); RDW Coefficient of Variation 18.7 % (11.5-14.5); RDW Standard Deviation 62.1 fL (36.4-46.3); Red Blood Count 2.37 M/uL (4.7-6.1); White Blood Count 6.17 K/uL (4.8-10.8)
[2019-05-28 04:12] LABS: ALC (manual) 0.67 K/uL (1.2-3.4); ANC (manual) 3.45 K/uL (1.4-6.5); Basophils # (manual) 0.11 K/uL (0-0.2); Basophils % (manual) 1.8 %; Eosinophils # (manual) 0.06 K/uL (0-0.5); Eosinophils % (manual) 0.9 %; Giant Platelets 1+; Lymphocytes # (manual) 0.67 K/uL (1.2-3.4); Lymphocytes % (manual) 10.8 %; Metamyelocytes # (manual) 0.39 K/uL (0-0); Metamyelocytes % (manual) 6.3 %; Monocytes # (manual) 0.72 K/uL (0.11-0.59); Monocytes % (manual) 11.7 %; Myelocytes # (manual) 0.78 K/uL (0-0); Myelocytes % (manual) 12.6 %; Neutrophils # (manual) 3.45 K/uL (1.4-6.5); Neutrophils % (manual) 55.9 %; Nucleated RBC # (auto) 0.75 K/uL (0-0); Nucleated RBC % (auto) 12.2 %; Polychromasia 1+; Tear Drop Cells 2+
[2019-05-28] MEDS: MoRPHine SULFATE CR 60 MG TABCR PO SCH ×2 (06:25→18:32)
[2019-05-28 07:01] LABS: Hematocrit (blood only) 22.8 % (42-52); Hemoglobin 7.3 g/dL (14.0-18.0); Mean Corpuscular Volume 93.8 fL (80-100); Mean Platelet Volume 10.4 fL (7.4-10.4); Nucleated RBC # (auto) 0.69 K/uL (0-0); Nucleated RBC % (auto) 10.9 %; Platelet Count 75 K/uL (130-400); RDW Standard Deviation 62.2 fL (36.4-46.3); Red Blood Count 2.43 M/uL (4.7-6.1); White Blood Count 6.31 K/uL (4.8-10.8)
[2019-05-28 07:02] LABS: ALC (manual) 1.11 K/uL (1.2-3.4); ANC (manual) 3.29 K/uL (1.4-6.5); Basophils # (manual) 0.18 K/uL (0-0.2); Basophils % (manual) 2.9 %; Eosinophils # (manual) 0.06 K/uL (0-0.5); Lymphocytes # (manual) 1.11 K/uL (1.2-3.4); Lymphocytes % (manual) 17.6 %; Metamyelocytes # (manual) 0.25 K/uL (0-0); Metamyelocytes % (manual) 3.9 %; Monocytes # (manual) 0.86 K/uL (0.11-0.59); Monocytes % (manual) 13.7 %; Myelocytes # (manual) 0.56 K/uL (0-0); Myelocytes % (manual) 8.8 %; Neutrophils # (manual) 3.29 K/uL (1.4-6.5); Neutrophils % (manual) 52.1 %; Tear Drop Cells 1+
[2019-05-28] MEDS: ONDANSETRON INJ 2 MG/ML 2 ML VIAL IV PRN (08:49)
[2019-05-28] MEDS ORDERED: NON-FORMULARY MEDICATION (Ferrous Sulfate 325 MG) PO SCH (09:00)
--- NOTE | 2019-05-28 09:12 | Consultation Report ---
DATE OF CONSULTATION: 05/28/2019 ONCOLOGY CONSULTATION REASON FOR CONSULTATION: Metastatic prostate cancer and hematochezia. HISTORY OF PRESENT ILLNESS: Maddy Rodriguez is a pleasant 54-year-old -[place] gentleman who was admitted to [facility] directly from Dr. Giorgi Brewer's office with a profoundly decreased hemoglobin level. This gentleman apparently has a history of metastatic prostate spanning a couple years. He was initially seen by Dr. Montejo and resides permanently in [place] and thus travels back and forth because he has relatives in our area, particularly his sister. He had been experiencing fatigue and black tarry stools x2. Again, he was seen yesterday by Dr. Brewer and his hemoglobin measured 5 prompting him to be admitted directly. His past treatment history is somewhat sketchy, but it appears he had received a combination of docetaxel and Zytiga at different intervals. He also mentions having some pelvic irradiation prior to coming back to the [facility] within the past month or two focused on the pelvis. The patient was transfused 2 units of packed RBCs. 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 Thus, a lot of the information imparted during this interview is not necessarily focused. He has requested that we speak to his to fill in details. His PSA is in excess of 400. CT scan of the chest, abdomen and pelvis clearly demonstrates diffuse bony metastatic disease. PAST MEDICAL HISTORY: Again, significant for transient epileptic amnesia, metastatic prostate cancer, looks like he has a history of iron deficiency anemia. MEDICATIONS: Include cod liver oil 1 capsule p.o. daily, Epogen 4000 units subQ weekly, ferrous sulfate 325 mg p.o. daily, Zoladex 3.6 mg subcutaneous monthly, morphine 10 mg p.o. daily p.r.n., morphine ER 60 mg p.o. b.i.d., multivitamin, Trileptal 300 mg p.o. b.i.d. ALLERGIES: No known drug allergies. SOCIAL HISTORY: The patient is employed by the [employer]. He is , is a reformed smoker, nondrinker, non-illicit drug user. FAMILY HISTORY: The patient had a great uncle on his father's side with colorectal cancer. His mother succumbed to multiple myeloma. Father is still living. REVIEW OF SYSTEMS: GENERAL: Negative for fevers, chills or sweats. He is mildly anorexic. He has not lost weight. SKIN: No rashes or lesions. No history of dermatoses. HEENT: Negative for headaches, lightheadedness or dizziness. No visual or hearing deficits. No sinus symptoms, sore throat or dysphagia. LYMPH: No history of lymphoproliferative disease. CARDIAC: Negative for coronary artery disease, no angina or palpitations. PULMONARY: Negative for COPD. He is not short of breath, dyspneic or orthopneic. No cough or hemoptysis. GASTROINTESTINAL: He did experience some transient nausea overnight. No vomiting; however, positive for hematochezia and melena. GENITOURINARY: Positive for prostate cancer by history. No current hematuria, dysuria, urinary incontinence. PSYCHIATRIC: Negative for anxiety, depression or psychoses. ENDOCRINE: Negative for diabetes or thyroid disease. NEUROLOGIC: Negative for seizures, stroke, or migraine headache. He has a diagnosis of transient epileptic amnesia. HEMATOLOGIC: Positive for severe anemia and mild thrombocytopenia. PHYSICAL EXAMINATION: GENERAL: A very pleasant 54-year-old -[place] gentleman in no acute distress. VITAL SIGNS: Temperature 36.8, pulse 102, respiratory rate 18, blood pressure 172/70. SKIN: Warm, dry, noncyanotic without petechia, rash or ecchymosis. HEENT: Head is atraumatic, normocephalic. Eyes: PERRLA, EOMI. Sclerae nonicteric. No conjunctival injection. Nares are patent without rhinorrhea or discharge. Throat is clear. Tongue is midline. Mucous membranes are moist. NECK: Supple without JVD or thyromegaly. LYMPHATICS: No cervical, supraclavicular, axillary or inguinal palpable nodes. HEART: Regular rate and rhythm. No clicks, rubs, murmurs or gallops. LUNGS: Clear to auscultation bilaterally. ABDOMEN: Soft, nontender, nondistended, without palpable hepatosplenomegaly. EXTREMITIES: Musculoskeletal strength and pulses are equal in all 4 quadrants. No clubbing, cyanosis or edema. NEUROLOGICALLY: He is awake, alert and oriented x3. Cranial nerves II-XII are intact. LABORATORY DATA: WBC count 6310, hemoglobin 7.3 (post-transfusion), platelet count 75,000. There is evidence for metamyelocytes and myelocytes as well as teardrops in his marrow or in his peripheral blood. Coags are within normal limits. Sodium 138, potassium 3.6, chloride 106, carbon dioxide 26, creatinine 0.75, BUN 5, albumin 2.6. PSA 435. RADIOGRAPHIC DATA: CT scan of the chest, abdomen and pelvis reveals diffuse skeletal bony metastatic disease. IMPRESSION: 1. Severe anemia, suspect gastrointestinal bleeding. 2. Metastatic prostate cancer (bony mets). 3. Hypoalbuminemia. 4. Mild thrombocytopenia. PLAN: Michael Castañeda is a pleasant 54-year-old gentleman who has a prior relationship with [facility] physician, particularly Dr. Montejo who has since retired. His treatment past is somewhat scattered as it appears he had received chemotherapy and Zytiga in the past. He is presently on Zoladex according to his medical record. Need to speak to his to verify these facts before moving forward. Mr. Castañeda is not terribly reliable in his recall. The other issue is that of his GI bleeding. Gastroenterology is on board and suspect scoping will be done in the next day or so. We will discuss therapeutic plan with Dr. Brewer. However, Mr. Castañeda plans to return to [place] within the next month or so. I agree with current medical management and have nothing further to add, would maintain his hemoglobin above 7 grams per deciliter. Thank you very much for allowing us to participate in his care.
[2019-05-28] MEDS: ACETAMINOPHEN 325 MG TAB PO PRN ×2 (10:30→19:33)
[2019-05-28] MEDS: OXcarbazepine 150 MG TABLET PO SCH ×2 (10:59→20:31)
--- NOTE | 2019-05-28 10:59 | Hospitalist Progress Note ---
Date of Service May 28, 2019 Assessment & Plan (1) Severe anemia: Patient with findings concerning for upper GI bleed. Patient status post 2 units packed red blood cells with a hemoglobin that properly corrected. We will continue to monitor every 6 hours transfuse further as needed. Patient is currently asymptomatic so the goal is to keep his hemoglobin over 7. If patient does have further evidence of hematemesis, I would consider NG tube placement. Due to shortage of Protonix, will start IV H2-suellen. GI evaluation is pending. Patient should be n.p.o., will order IV fluids. (2) Prostate cancer metastatic to bone: Per imaging, patient has extensive bony metastasis throughout the spine and pelvis. He has already been seen by oncology. They will need further information regarding patient's previous treatment protocol with consideration to restarting treatment once the acute bleeding issues are stabilized. (3) Pleural effusion: I did review the imaging, patient has a very minimal pleural effusions. Patient has no symptoms of shortness of breath, will monitor for now. Subjective Patient is awake and alert. He is pleasant. He tells me he has some pain in his right great toe which is mild and is requesting some Tylenol for this. Nursing reports that he did have a very small emesis episode with some mucus and black material. Patient has had no bowel movements, melanotic or otherwise since presentation. Patient denies any abdominal pain, back pain, or other issues at this time. Review of Systems Review of Systems: All systems reviewed & are unremarkable except as noted in HPI & below Physical Exam Physical Exam: GENERAL: Non-toxic in appearance. Nonjaundiced and anicteric. INTEGUMENTARY: Warm, dry, and [place]. HEAD: Normocephalic. EYES: without scleral icterus or trauma. ENT/OROPHARYNX: clear and moist. LYMPHADENOPATHY/NECK: Is supple without lymphadenopathy or meningismus. RESPIRATORY: Lungs clear and equal. CARDIOVASCULAR: Regular rate and rhythm. GI/ABDOMEN: Soft, mild distention with tympany. No tenderness to palpation. Diminished bowel sounds. EXTREMITIES: Warm and well perfused. BACK: No CVA tenderness. NEUROLOGICAL: Intact without focal deficits. PSYCHIATRIC: normal affect. MUSCULOSKELETAL: Normally developed with good muscle tone. Results & Data Vital Signs (Past 12 Hours) Vital Signs Temp Pulse Pulse Pulse Resp BP BP 05/28/19 08:13 36.8 C 102 H 18 172/70 H 1024/19 03:47 36.8 C 82 18 130/74 05/28/19 02:27 36.8 C 85 20 129/73 05/28/19 02:23 36.8 C 85 20 129/73 05/28/19 02:05 36.7 C 84 17 137/75 05/28/19 01:05 37.1 C 98 H 17 158/74 H 05/28/19 00:53 92 H 05/28/19 00:35 36.8 C 86 17 141/79 H 05/28/19 00:20 37.1 C 90 17 140/76 05/28/19 00:10 36.9 C 95 H 20 142/76 H 05/28/19 00:02 36.9 C 91 H 20 131/75 05/28/19 00:00 37.0 C 90 17 139/70 Pulse Ox 05/28/19 08:13 98 05/28/19 03:47 98 05/28/19 02:27 95 05/28/19 02:23 05/28/19 02:05 97 05/28/19 01:05 93 05/28/19 00:53 05/28/19 00:35 95 05/28/19 00:20 94 05/28/19 00:10 94 05/28/19 00:02 94 05/28/19 00:00 95 PG Care Time/CCT Total # of Minutes Spent Total Time Spent with Patient: Total time spent is greater than 50% in coordination of care (as documented) at patient's floor/unit and/or counseling patient:
[2019-05-28] MEDS: FERROUS SULFATE 325 MG TAB PO SCH (11:27)
[2019-05-28] MEDS: MULTIVITAMIN TAB PO SCH (11:27)
[2019-05-28] MEDS: POLYETHYLENE (MIRALAX) 17 GM PACK PO SCH (11:27)
[2019-05-28] MEDS ORDERED: FAMOTIDINE 20 MG in SYRINGE 3 ML IV SCH (11:30)
[2019-05-28] MEDS ORDERED: PROMETHAZINE HCL 12.5 MG in SODIUM CHLORIDE 0.9% 50 ML IV STA (11:45)
--- NOTE | 2019-05-28 11:55 | Gastrointestinal Consultation ---
Date of Consultation May 28, 2019 Assessment & Plan (1) Melena: (2) Anemia: (3) Nausea & vomiting: Pt is a 54 y/o male seen for n/v, anemia, and melena. He had been transfused 2u PRBC, Hgb 5 ->7. He has hx of prostate ca w skeletal mets. On Docetaxyl which can cause GI bleeding. Also on NSAIDs on daily basis which can cause PUD. Of note, he primarily resides in [place], currently visiting sister in town. - Monitor H/H and transfuse prn - NPO for EGD eval today - DC'd Famotidine IV. He had previously been given PPI bolus and gtt. Will continue PPI gtt - Avoid NSAIDs - GI will give further recs after EGD completed Supervising Physician Co-Signing Physician Notes Pt seen and examined with HAMILTON Lopez. Her note reflects my exam and findings. I agree with her impression and plan. After evaluating the patient and because of his symptoms, I recommend an upper endoscopy which we will arrange. Eddi Baldwin M.D. History of Present Illness Reason for Consultation: Melena Requesting Physician: Dr. Eric Gaspar Attending Physician: Dr. Eddi Baldwin History of Present Illness Pt is a 54 y/o male w hx of prostate ca, skeletal mets who is currently seen for melena. Pt primarily resides in [place], in town to visit sister. He has transient epileptic amnesia, somewhat a poor historian but history corraborated w (Jennifer). He was in outpt Heme/Onc office but admitted directly for severe anemia w Hgb of 5. He noticed having nausea, vomiting and dark tarry stools x 2 days. He denies any fever, chills, CP, SOB, abd pain. Did note some dark colored mucus in vomiting but no ashwini hematemesis or coffee ground emesis. He had been given 2U PRBC transfusion since admitted, Hgb up to 7. Plt 72, INR 1.2. He denies being on blood thinners. He had been on Docetaxyl and Zytiga in March for his cancer. He was also taking mefenamic acid (NSAID) on daily basis. CT abd/pelvis w/o signs of obstructive, inflammatory bowel processes. Allergies Allergy/AdvReac Type Severity Reaction Status Date / Time No Known Allergies Allergy Unverified 05/27/19 14:46 Home Medications Home Medications Medication Instructions Recorded Confirmed Type cod liver oil 1 cap PO QAM 05/27/19 05/27/19 History epoetin neptali [Epogen] 4,000 unit SUBCUT MOWEFR 05/27/19 05/27/19 History ferrous sulfate 325 mg PO QAM 05/27/19 05/27/19 History goserelin [Zoladex] 3.6 mg SUBCUT MONTHLY 05/27/19 05/27/19 History morphine 10 mg PO UD PRN 05/27/19 05/27/19 History morphine 60 mg PO Q12H 05/27/19 05/27/19 History multivitamin 1 tab PO QAM 05/27/19 05/27/19 History oxcarbazepine [Trileptal] 300 mg PO BID 05/27/19 05/27/19 History Patient History Medical History Prostate cancer metastatic to bone (Chronic) Family History Other No significant family history Social History Preferred Language: Turkish Communication Ability: Effective Electrical Contractor Required: No Beliefs That Will Affect Care: None Current Living Situation: Spouse Feels Safe at Home: Yes Smoking Status: Former smoker Hx Alcohol Use: No Hx Substance Use: No Review of Systems Review of Systems: All systems reviewed & are unremarkable except as noted in HPI & below Physical Exam Constitutional: WD/WN, vitals as above well groomed, cooperative and comfortable Eyes: PERRL, conjunctivae normal, anicteric sclerae ENMT: external ear and nose normal, oropharynx normal Respiratory: normal respiratory effort, lungs clear to auscultation Cardiovascular: RRR, no murmur, no edema Gastrointestinal (Abdomen): normal bowel sounds, soft, nontender, no hepat osplenomegaly he is c/o nausea Skin: no rashes, warm and dry no jaundice Neurologic: Motor/Sensory: no asterixis Psychiatric: A+Ox3, euthymic affect Lymphatic: no lymphedema Results & Data Vital Signs (Past 12 Hours) Vital Signs Temp Pulse Pulse Pulse Resp BP BP 05/28/19 08:13 36.8 C 102 H 18 172/70 H 05/28/19 03:47 36.8 C 82 18 130/74 05/28/19 02:27 36.8 C 85 20 129/73 05/28/19 02:23 36.8 C 85 20 129/73 05/28/19 02:05 36.7 C 84 17 137/75 05/28/19 01:05 37.1 C 98 H 17 158/74 H 05/28/19 00:53 92 H 05/28/19 00:35 36.8 C 86 17 141/79 H 05/28/19 00:20 37.1 C 90 17 140/76 05/28/19 00:10 36.9 C 95 H 20 142/76 H 05/28/19 00:02 36.9 C 91 H 20 131/75 05/28/19 00:00 37.0 C 90 17 139/70 Pulse Ox 05/28/19 08:13 98 05/28/19 03:47 98 05/28/19 02:27 95 05/28/19 02:23 05/28/19 02:05 97 05/28/19 01:05 93 05/28/19 00:53 05/28/19 00:35 95 05/28/19 00:20 94 05/28/19 00:10 94 05/28/19 00:02 94 05/28/19 00:00 95
[2019-05-28] MEDS: SODIUM CHLORIDE 0.9% 1000ML 1,000 ML IV SCH (12:19)
[2019-05-28] MEDS: PANTOprazole 40 MG in DEXTROSE 5% 100 ML IV SCH ×3 (12:44→23:35)
[2019-05-28] MEDS ORDERED: LIDOCAINE HCL 2% 2 ML VIAL/AMP(20MG/ML) INFIL ONE (13:28)
[2019-05-28] MEDS ORDERED: PROPOFOL IV EMULSION 10 MG/ML 20 ML VIAL IV ONE (13:28)
--- NOTE | 2019-05-28 13:53 | Anesthesiology Consultation ---
Date of Service May 28, 2019 Assessment & Plan Chart Review Chart Review: Acceptable Risk for Surgery and Patient NOT seen in Pre Admission Testing Consults Requested none ASA ASA4 Proposed Anesthesia Anesthesia Type: MAC Risk / Benefits Reviewed With: PT / POA / Parent / Guardian, Accepts Plan and Informed Consent Obtained History Surgery Operation Date: 05/28/19 10:45 Proposed Procedures p Esophagogastroduodenoscopy Dr Denny Baldwin Height/Weight Height: 5 ft 11 in Weight: 88.9 kg Allergies Allergy/AdvReac Type Severity Reaction Status Date / Time No Known Allergies Allergy Unverified 05/27/19 14:46 Medications Home Medications Medication Instructions Recorded Confirmed Last Taken cod liver oil 1 cap PO QAM 05/27/19 05/27/19 05/27/19 epoetin neptali [Epogen] 4,000 unit SUBCUT MOWEFR 05/27/19 05/27/19 05/25/19 ferrous sulfate 325 mg PO QAM 05/27/19 05/27/19 05/27/19 goserelin [Zoladex] 3.6 mg SUBCUT MONTHLY 05/27/19 05/27/19 05/05/19 morphine 10 mg PO UD PRN 05/27/19 05/27/19 05/27/19 03:00 morphine 60 mg PO Q12H 05/27/19 05/27/19 05/27/19 multivitamin 1 tab PO QAM 05/27/19 05/27/19 05/27/19 oxcarbazepine [Trileptal] 300 mg PO BID 05/27/19 05/27/19 05/27/19 Active Medications Generic Name Dose Route Start Last Admin Trade Name Freq PRN Reason Stop Dose Admin Acetaminophen 650 mg 05/27/19 18:03 05/28/19 10:30 Tylenol PO 06/26/19 18:02 650 mg Q4H PRN Administration Pain or Fever Ferrous Sulfate 325 mg 05/28/19 09:00 05/28/19 11:27 Feosol PO 06/27/19 08:59 Not Given QAM JEREMÍAS Sodium Chloride 1,000 mls @ 80 mls/hr 05/28/19 11:30 05/28/19 13:19 Nss 1000ml IV 06/27/19 11:29 0 mls/hr .[id number] JEREMÍAS Infusion Pantoprazole Sodium 40 mg/ 100 mls @ 20 mls/hr 05/28/19 12:00 05/28/19 13:19 Dextrose IV 06/27/19 11:59 0 mls/hr Q5H JEREMÍAS Infusion Morphine Sulfate 60 mg 05/27/19 18:56 05/28/19 06:25 Ms Contin PO 06/26/19 18:55 60 mg Q12H JEREMÍAS Administration Multivitamins 1 tab 05/28/19 09:00 05/28/19 11:27 Multivitamin Tab PO 06/27/19 08:59 Not Given QAM JEREMÍAS Ondansetron HCl 4 mg 05/27/19 18:03 05/28/19 08:49 Zofran IV 06/26/19 18:02 4 mg Q6H PRN Administration Nausea Oxcarbazepine 300 mg 05/27/19 21:00 05/28/19 10:59 Trileptal PO 06/26/19 20:59 300 mg BID JEREMÍAS Administration Polyethylene Glycol 17 gm 05/27/19 18:15 05/28/19 11:27 Miralax Powder Packet PO 06/26/19 18:14 Not Given DAILY JEREMÍAS NPO Date Last Intake of Fluids: 05/27/19 Time Last Intake of Fluids: 23:59 Date Last Intake of Solids: 05/27/19 Time Last Intake of Solids: 19:00 Past Medical History Medical History Prostate cancer metastatic to bone (Chronic) Exercise / Class Metabolic Activity III < 4 Walking/Shop/Light housework Past Family History Family History Other No significant family history Past Anesthesia History No Hx of Anesthesia Complications and No Family Hx of Anesthesia Complications History of PONV No Hx of PONV and No Hx of Motion Sickness Social History Smoking Status: Former smoker Hx Alcohol Use: No Hx Substance Use: No Physical Exam Vital Signs Last Vital Signs Temp 36.7 C 05/28/19 13:38 Pulse 88 05/28/19 13:38 Resp 18 05/28/19 13:38 BP 143/82 H 05/28/19 13:38 Pulse Ox 94 05/28/19 13:38 Constitutional + obese ENMT Mouth: no dentition abnormality Thyromental Distance: > or= 3.5 Finger Breadths Mallampati Class: II Neck normal visual inspection and trachea midline; neck extension not limited Respiratory normal respiratory effort Auscultation: lungs clear to auscultation bilaterally Cardiovascular Rate/Rhythm: regular rate and regular rhythm Heart Sounds: no murmur Vessels: no carotid bruit Musculoskeletal Spine: normal cervical ROM Neurologic moves all extremities Motor/Sensory: no sensory deficit Psychiatric Orientation: alert and oriented x 3 Testing Laboratory Results 05/28/19 05:38 05/28/19 03:21 PT 11.9 Seconds (9.0-12.0) 05/27/19 14:06 INR 1.2 (0.9-1.1) H 05/27/19 14:06 APTT 26.8 Seconds (21.0-31.0) 05/27/19 14:06 Blood Type O Positive 05/27/19 14:06 Antibody Screen NEGATIVE 05/27/19 14:06 Electrocardiogram Date: 05/27/19 Findings: + NSR @ (at 92,LVH;prolonged QT)
[2019-05-28] MEDS ORDERED: ATROPINE SULFATE 0.1 MG/ML 10ML SYR IV PRN (13:55)
[2019-05-28] MEDS ORDERED: ePHEDrine sulfate 50 MG/ML AMP IV PRN (13:55)
[2019-05-28] MEDS ORDERED: ONDANSETRON INJ 2 MG/ML 2 ML VIAL ONE (14:10)
--- NOTE | 2019-05-28 14:11 | GI REPORT ---
Patient Name: Alfonso Castañeda Procedure Date: 05/28/2019 1:36 PM Date of : 1965 Admit Type: Inpatient Age: 54 Gender: Male Attending MD: Eddi Baldwin MD Procedure: Upper GI endoscopy Providers: Eddi Baldwin MD Referring MD: Giorgi Corley Md, Trey Ortega Do Indications: Nausea with vomiting Medicines: See the Anesthesia note for documentation of the administered medications Complications: No immediate complications. Estimated Blood Loss: Estimated blood loss: none. Procedure: Pre-Anesthesia Assessment: - Prior to the procedure, a History and Physical was performed, and patient medications, allergies and sensitivities were reviewed. The patient's tolerance of previous anesthesia was reviewed. - The risks and benefits of the procedure and the sedation options and risks were discussed with the patient. All questions were answered and informed consent was obtained. - Patient identification and proposed procedure were verified prior to the procedure by the physician and the nurse. The procedure was verified in the pre-procedure area. - Pre-procedure physical examination revealed no contraindications to sedation. - After reviewing the risks and benefits, the patient was deemed in satisfactory condition to undergo the procedure. After obtaining informed consent, the endoscope was passed under direct vision. Throughout the procedure, the patient's blood pressure, pulse, and oxygen saturations were monitored continuously. The Scope was introduced through the mouth, and advanced to the third part of duodenum. The upper GI endoscopy was accomplished without difficulty. The patient tolerated the procedure well. Findings: The esophagus was normal. The stomach was normal. The examined duodenum was normal. The cardia and gastric fundus were normal on retroflexion. Impression: - Normal esophagus. - Normal stomach. - Normal examined duodenum. - No specimens collected. Recommendation: - [facility]. Eddi Baldwin M.D. Eddi Baldwin MD 05/28/2019 2:11:05 PM This report has been signed electronically. Note Initiated On: 05/28/2019 1:36 PM Number of Addenda: 0 I attest to the content of the Intraoperative Record and orders documented therein, exceptions below {[id number]}
--- NOTE | 2019-05-28 14:34 | Anesthesiology Progress Note ---
Date of Service May 28, 2019 Anesthesia Post Procedure Vital Signs Vital Signs: Temp Pulse Pulse Pulse Resp BP BP 05/28/19 14:31 83 18 134/72 05/28/19 14:26 80 16 136/76 05/28/19 14:21 82 18 127/68 05/28/19 13:38 36.7 C 88 18 143/82 H 05/28/19 11:47 36.8 C 89 18 05/28/19 08:13 36.8 C 102 H 18 05/28/19 03:47 36.8 C 82 18 05/28/19 02:27 36.8 C 85 20 129/73 05/28/19 02:23 36.8 C 85 20 129/73 05/28/19 02:05 36.7 C 84 17 137/75 05/28/19 01:05 37.1 C 98 H 17 158/74 H 05/28/19 00:53 92 H 05/28/19 00:35 36.8 C 86 17 141/79 H 05/28/19 00:20 37.1 C 90 17 140/76 05/28/19 00:10 36.9 C 95 H 20 142/76 H 05/28/19 00:02 36.9 C 91 H 20 131/75 05/28/19 00:00 37.0 C 90 17 05/27/19 21:01 36.8 C 80 18 128/71 05/27/19 20:15 36.9 C 78 20 133/75 05/27/19 19:15 36.8 C 88 22 137/75 05/27/19 19:00 05/27/19 18:58 36.9 C 91 H 16 05/27/19 18:45 36.8 C 82 20 133/70 05/27/19 18:30 36.7 C 87 22 134/66 05/27/19 18:25 37.1 C 87 22 132/67 05/27/19 18:15 37.0 C 89 15 135/70 05/27/19 17:30 88 20 05/27/19 15:15 72 18 BP Pulse Ox 05/28/19 14:31 96 05/28/19 14:26 99 05/28/19 14:21 05/28/19 13:38 94 05/28/19 11:47 160/81 H 95 05/28/19 08:13 172/70 H 98 05/28/19 03:47 130/74 98 05/28/19 02:27 95 05/28/19 02:23 05/28/19 02:05 97 05/28/19 01:05 93 05/28/19 00:53 05/28/19 00:35 95 05/28/19 00:20 94 05/28/19 00:10 94 05/28/19 00:02 94 05/28/19 00:00 139/70 95 05/27/19 21:01 97 05/27/19 20:15 96 05/27/19 19:15 97 05/27/19 19:00 92 05/27/19 18:58 134/72 91 05/27/19 18:45 97 05/27/19 18:30 94 05/27/19 18:25 97 05/27/19 18:15 05/27/19 17:30 130/67 98 05/27/19 15:15 138/77 98 Pain Intensity Back: Pain Intensity: 3 Transfer of Care Handoff Completed per policy Notes Mental Status: alert / awake / arousable Patient Amnestic to Procedure: Yes Nausea / Vomiting: adequately controlled Pain: adequately controlled Airway Patency, RR, SpO2: stable & adequate BP & HR: stable & adequate Hydration State: stable & adequate Anesthetic Complications: no major complications apparent
--- NOTE | 2019-05-28 16:08 | Communication Note ---
Date of Service: May 28, 2019 Pt had EGD on 05/[address] Baldwin - normal findings. Discussed findings with pt and , also discussed possible further workup with colonoscopy to r/o lower GI bleeding ? related to radiation proctitis. Pt however would like to defer further workup at this time.
[2019-05-28] MEDS ORDERED: ACETAMINOPHEN 325 MG TAB PO PRN (19:23)
[2019-05-28] MEDS ORDERED: MoRPHine SULFATE 4 MG/ML 1 ML CARP\\VIAL IV PRN (19:47)
[2019-05-28] MEDS ORDERED: MoRPHine SULFATE 5 MG/0.25 ML UDP PO PRN (19:49)
[2019-05-29] MEDS: SODIUM CHLORIDE 0.9% 1000ML 1,000 ML IV SCH ×2 (01:48→14:00)
[2019-05-29] MEDS: PANTOprazole 40 MG in DEXTROSE 5% 100 ML IV SCH (04:17)
[2019-05-29] MEDS: MoRPHine SULFATE CR 60 MG TABCR PO SCH ×3 (06:29→23:42)
[2019-05-29 06:34] LABS: Hematocrit (blood only) 22.5 % (42-52); Mean Corpuscular Hemoglobin 29.9 pg (25-34); Mean Corpuscular Hgb Conc 31.1 g/dL (32-36); Mean Corpuscular Volume 96.2 fL (80-100); Nucleated RBC # (auto) 0.54 K/uL (0-0); Nucleated RBC % (auto) 9.6 %; RDW Coefficient of Variation 19.4 % (11.5-14.5); RDW Standard Deviation 64.3 fL (36.4-46.3); Red Blood Count 2.34 M/uL (4.7-6.1); White Blood Count 5.63 K/uL (4.8-10.8)
[2019-05-29 06:42] LABS: Mean Platelet Volume 9.5 fL (7.4-10.4); Platelet Count 73 K/uL (130-400)
[2019-05-29 06:59] LABS: BUN Creatinine Ratio 6.5 (10-20); Calcium 7.9 mg/dl (8.5-10.1); Creatinine Clr Calc Pharmacy 118.7 ml/min; Est GFR (African American) 119.5; Est GFR (Non-African American) 103.1; Potassium 3.6 mmol/L (3.5-5.1)
[2019-05-29 07:41] LABS: Polychromasia 1+; Tear Drop Cells 1+
[2019-05-29 08:11] LABS: ALC (manual) 0.95 K/uL (1.2-3.4); ANC (manual) 2.89 K/uL (1.4-6.5); Basophils # (manual) 0.05 K/uL (0-0.2); Eosinophils # (manual) 0.05 K/uL (0-0.5); Lymphocytes # (manual) 0.95 K/uL (1.2-3.4); Neutrophils # (manual) 2.89 K/uL (1.4-6.5)
[2019-05-29] MEDS: ACETAMINOPHEN 325 MG TAB PO PRN ×2 (08:12→13:58)
[2019-05-29] MEDS: MoRPHine SULFATE 5 MG/0.25 ML UDP PO PRN ×2 (08:12→13:59)
[2019-05-29] MEDS: FERROUS SULFATE 325 MG TAB PO SCH (08:13)
[2019-05-29] MEDS: MULTIVITAMIN TAB PO SCH (08:13)
[2019-05-29] MEDS: OXcarbazepine 150 MG TABLET PO SCH ×2 (08:13→20:59)
[2019-05-29] MEDS: POLYETHYLENE (MIRALAX) 17 GM PACK PO SCH (08:14)
--- NOTE | 2019-05-29 10:28 | Hospitalist Progress Note ---
Date of Service May 29, 2019 Assessment & Plan (1) Severe anemia: Patient was status post 2 units of packed red blood cells. We will transfuse third unit of packed red blood cells today. Continue to follow H&H periodically. He refused inpatient colonoscopy. Consideration that this re presents radiation proctitis. Patient is doing well with a clear liquid diet, will advance to a low residue diet as tolerated. (2) Prostate cancer metastatic to bone: Per imaging, patient has extensive bony metastasis throughout the spine and pelvis. He has already been seen by oncology. They will need further information regarding patient's previous treatment protocol with consideration to restarting treatment once the acute bleeding issues are stabilized. PT/OT evaluation today, consideration of discharge soon depending on progress. I did just receive a phone call from the floor, there is concern with the patient CBC which may be showing blasts. The slide is being reviewed by pathology but oncology should be made aware. I will await final results. (3) Pleural effusion: I did review the imaging, patient has a very minimal pleural effusions. Patient has no symptoms of shortness of breath, will monitor for now. Subjective Patient seen and examined with daughter in room. He is telling me he is tolerating clear liquids without any issue. He denies any rectal bleeding. He did have an EGD yesterday is unremarkable. Of note, the patient's hemoglobin is trended slightly downward and is now 7. He denies any shortness of breath, palpitations, dyspnea on exertion. He does feel deconditioned and is awaiting PT/OT evaluation. Review of Systems Review of Systems: All systems reviewed & are unremarkable except as noted in HPI & below Physical Exam Physical Exam: GENERAL: Non-toxic in appearance. Nonjaundiced and anicteric INTEGUMENTARY: Warm, dry, and [place]. HEAD: Normocephalic. EYES: without scleral icterus or trauma. ENT/OROPHARYNX: clear and moist. LYMPHADENOPATHY/NECK: Is supple without lymphadenopathy or meningismus. RESPIRATORY: Lungs clear and equal. CARDIOVASCULAR: Regular rate and rhythm. GI/ABDOMEN: Soft and nontender. Mild distention but no focal tenderness. EXTREMITIES: Warm and well perfused. BACK: No CVA tenderness. NEUROLOGICAL: Intact without focal deficits. PSYCHIATRIC: normal affect. MUSCULOSKELETAL: Normally developed with good muscle tone. Results & Data Vital Signs (Past 12 Hours) Vital Signs Temp Pulse Pulse Pulse Resp BP Pulse Ox 10/25/19 07:55 37.0 C 84 18 147/75 H 95 05/29/19 03:49 37.5 C 92 H 20 149/79 H 93 05/29/19 00:51 89 05/28/19 23:43 37.3 C 91 H 14 146/80 H 97 PG Care Time/CCT Total # of Minutes Spent Total Time Spent with Patient: Total time spent is greater than 50% in coordination of care (as documented) at patient's floor/unit and/or counseling patient:
[2019-05-29] MEDS ORDERED: SODIUM CHLORIDE 0.9% 250 ML IV PRN (10:35)
--- NOTE | 2019-05-29 16:01 | Palliative Care Progress Note ---
Date of Service May 29, 2019 Subjective Discussed case with attending physician. Gave some recs for pain meds and will formally see patient on Saturday morning. Thank you. Results & Data Vital Signs (Past 12 Hours) Vital Signs Temp Pulse Pulse Resp BP BP BP 05/29/19 15:37 37.0 C 88 16 151/83 H 05/29/19 13:56 36.8 C 85 16 144/79 H 05/29/19 13:15 36.7 C 86 16 157/82 H 05/29/19 12:15 37 C 89 18 148/86 H 05/29/19 11:45 36.9 C 83 16 137/83 05/29/19 11:30 36.9 C 85 16 130/76 05/29/19 11:14 36.8 C 85 16 128/76 05/29/19 07:55 37.0 C 84 18 147/75 H Pulse Ox 05/29/19 15:37 95 05/29/19 13:56 97 05/29/19 13:15 97 05/29/19 12:15 96 05/29/19 11:45 94 05/29/19 11:30 94 05/29/19 11:14 96 05/29/19 07:55 95 PG Care Time/CCT Total # of Minutes Spent Total Time Spent with Patient: Total time spent is greater than 50% in coordination of care (as documented) at patient's floor/unit and/or counseling patient:
[2019-05-29] MEDS: HYDROmorphone INJ 1 MG/ML SYRINGE IV PRN ×2 (16:20→21:00)
[2019-05-29] MEDS ORDERED: SODIUM CHLORIDE 0.65% NA SOLN 45 ML (OCEAN) ONE (23:39)
[2019-05-30] MEDS: SODIUM CHLORIDE 0.9% 1000ML 1,000 ML IV SCH ×2 (01:29→15:37)
[2019-05-30] MEDS: ONDANSETRON INJ 2 MG/ML 2 ML VIAL IV PRN (08:24)
[2019-05-30 08:43] LABS: Hematocrit (blood only) 26.9 % (42-52); Hemoglobin 8.3 g/dL (14.0-18.0); Mean Corpuscular Hemoglobin 29.3 pg (25-34); Mean Corpuscular Hgb Conc 30.9 g/dL (32-36); Mean Corpuscular Volume 95.1 fL (80-100); Nucleated RBC # (auto) 0.35 K/uL (0-0); Nucleated RBC % (auto) 5.8 %; RDW Coefficient of Variation 18.7 % (11.5-14.5); RDW Standard Deviation 60.9 fL (36.4-46.3); Red Blood Count 2.83 M/uL (4.7-6.1)
[2019-05-30 08:52] LABS: Mean Platelet Volume 9.7 fL (7.4-10.4); Platelet Count 66 K/uL (130-400)
[2019-05-30 09:11] LABS: Calcium 8.2 mg/dl (8.5-10.1); Est GFR (African American) 129.4; Est GFR (Non-African American) 111.6; Potassium 3.2 mmol/L (3.5-5.1)
[2019-05-30 09:23] LABS: ALC (manual) 1.25 K/uL (1.2-3.4); ANC (manual) 3.65 K/uL (1.4-6.5); Basophils # (manual) 0.05 K/uL (0-0.2); Basophils % (manual) 0.9 %; Lymphocytes # (manual) 1.25 K/uL (1.2-3.4); Lymphocytes % (manual) 20.5 %; Metamyelocytes # (manual) 0.22 K/uL (0-0); Metamyelocytes % (manual) 3.6 %; Monocytes # (manual) 0.38 K/uL (0.11-0.59); Monocytes % (manual) 6.3 %; Myelocytes # (manual) 0.54 K/uL (0-0); Myelocytes % (manual) 8.9 %; Neutrophils # (manual) 3.65 K/uL (1.4-6.5); Neutrophils % (manual) 59.8 %; Polychromasia 1+; Tear Drop Cells 1+
[2019-05-30] MEDS: OXcarbazepine 150 MG TABLET PO SCH (10:19)
[2019-05-30] MEDS: FERROUS SULFATE 325 MG TAB PO SCH (10:20)
[2019-05-30] MEDS: MULTIVITAMIN TAB PO SCH (10:20)
[2019-05-30] MEDS: POLYETHYLENE (MIRALAX) 17 GM PACK PO SCH (10:28)
[2019-05-30] MEDS: MoRPHine SULFATE CR 60 MG TABCR PO SCH ×2 (10:28→15:32)
[2019-05-30] MEDS ORDERED: MoRPHine SULFATE IR 15 MG TAB (IMMEDIATE RELEASE) PO PRN (11:00)
--- NOTE | 2019-05-30 11:15 | Discharge Summary ---
Date of Service May 30, 2019 Admission HPI Per Admitting Provider Patient is a 54 years old male with past medical history of metastatic prostate cancer and transient epileptic amnesia, who presented to the emergency room with complaints of 2 episodes of black tarry stool that started yesterday. Patient states that he was referred to the ER by Dr. mariana Porter's office after his hemoglobin was found to be 5 at his office. The patient also noted that he had intermittent lower back pain for the past months. The patient reports that he used to see Dr. Montejo to manage the prostate cancer back in 2016 when was prostate cancer discovered. The patient notes that he has been in [place] since for the cancer treatment he was treated over there with Docetaxyl 2 cycles(2106), Zytiga 6 months(2017)Docetaxyl (4 treatments in 2018) and Zytiga 1 month in March 2019. Last blood transfusion was in December 2016. Patient denies fever chills, headache, chest pain, shortness of breath, frequency, urgency, abdominal pain, heat hematuria, hematochezia. Patient reports melena. Decision was made to start 1 unit of blood while patient in the ER and while BNP was pending to determine if patient also has CHF exacerbation since his lower extremity's were with mild pitting edema. Labs were reviewed which shows white blood cell 5.3, hemoglobin six 5.6, hematocrit 18, platelets 80, PT 11.9, INR 1.2, APTT 26.8. Sodium 138, potassium 3.4, creatinine 0.6, BNP 841. Abdominal x-rays significant for extensive skeletal metastasis and 4 mm left renal calculus, head CT no acute intracranial, chest x-rays no lymphadenopathy or other evidence of intrathoracic metastasis. Bilateral pleural effusion, left greater than right. Minimal basilar atelectasis. Borderline cardiomegaly. Finding decision was made to admit patient to the PCU telemetry give blood transfusion and further work-up for metastatic prostate cancer. Admission Exam Per Admitting Provider Constitutional: WD/WN, vitals as above well developed Eyes: PERRL, conjunctivae normal, anicteric sclerae ENMT: external ear and nose normal, oropharynx normal Neck: trachea midline, no thyromegaly Respiratory: Auscultation: + crackles and + wheezes Cardiovascular: Heart Sounds: normal S1, normal S2 and + murmur Palpation: + palpable S3 Gastrointestinal (Abdomen): normal bowel sounds, soft, nontender, no hepatosplenomegaly Musculoskeletal: no cyanosis or clubbing, extremities motor strength 5/5 Skin: no rashes, warm and dry Neurologic: patellar DTR's 2+ bilat, sensation intact Psychiatric: A+Ox3, euthymic affect Lymphatic: no cervical or axillary lymphadenopathy Principal Diagnosis 1. Profound anemia, possibly secondary to lower GI bleed 2. Lower GI bleed, consider radiation proctitis 3. Prostate cancer, metastatic to bone 4. Chronic pain secondary to #3 Discharge Exam GENERAL: Non-toxic in appearance. INTEGUMENTARY: Warm, dry, and [place]. HEAD: Normocephalic. EYES: without scleral icterus or trauma. ENT/OROPHARYNX: clear and moist. LYMPHADENOPATHY/NECK: Is supple without lymphadenopathy or meningismus. RESPIRATORY: Lungs clear and equal. CARDIOVASCULAR: Regular rate and rhythm. GI/ABDOMEN: Soft and nontender. Mild distention. EXTREMITIES: Warm and well perfused. BACK: No CVA tenderness. NEUROLOGICAL: Intact without focal deficits. PSYCHIATRIC: normal affect. MUSCULOSKELETAL: Normally developed with good muscle tone. Discharge Data Allergies Allergy/AdvReac Type Severity Reaction Status Date / Time No Known Allergies Allergy Unverified 05/27/19 14:46 Consultations 05/27/19 15:16 ED Decision to Admit Stat 05/27/19 18:03 Consult Hematology Routine 05/27/19 23:52 Consult Gastroenterology Routine 05/29/19 15:42 Consult Palliative Care Routine Procedures Performed Operation Date: 05/28/19 10:45 Actual Procedures p Esophagogastroduodenoscopy(Not Applicable) - Eddi Baldwin Ordered Studies 05/27/19 13:49 CT abd pelvis IV con only Stat CT chest w con Stat CT head/brain wo con Stat 05/27/19 14:10 CT cervical spine wo con Stat CT lumbar spine wo con Stat CT thoracic spine wo con Stat Hospital Course (1) Severe anemia: Patient was status post 2 units of packed red blood cells initially for hemoglobin of 5. His hemoglobin did rise in the low sevens but dropped to 7.0. Patient did not have any overt bleeding, was transfused with 3 unit packed red blood cells. Hemoglobin corrected appropriately. His vitals are otherwise stable. Patient was seen by GI. He had an EGD which was essentially normal without any evidence of bleeding or other injury. A colonoscopy was discussed with the patient but he refused at this time. Presume that his bleeding was secondary to radiation proctitis from previously treated prostate cancer. Patient will be follow-up as an outpatient for elective colonoscopy. I did also asked the patient to get his hemoglobin rechecked within a week to ensure that it remains stable. (2) Prostate cancer metastatic to bone: Per imaging, patient has extensive bony metastasis throughout the spine and pelvis. He has already been seen by oncology. Patient's pain was controlled with Roxanol and morphine extended release. The dose of recent D&C of this was increased which seemed to be effective. [facility] asked that they would see him on Saturday, 06/01. However, the patient is doing well with the recommended medication changes will be discharged sooner. Patient was seen by PT/OT and was ambulatory independently and did not require any further home services or placement. Plan will be to discharge with morphine ER 60 mg 3 times daily, 90 pills along with MSIR 15 mg every 6 hours as needed, 90 pills. (3) Pleural effusion: I did review the imaging, patient has a very minimal pleural effusions. Patient has no symptoms of shortness of breath, will monitor for now. Total Time Total Time Spent Total Time Spent (In Minutes): Time spent preparing discharge in excess of 30 minutes. Discharge Plan Discharge Items Patient Disposition: Home - Self-Care Reason For Visit: SEVERE ANEMIA,GENERALIZED WEAKNESS,METASTATIC PROS Discharge Diagnosis: 1. Severe anemia, likely secondary to lower GI bleed/presumed radiation proctitis 2. Prostate cancer with widespread metastasis to bone 3. Chronic pain secondary to #2 Activity: Per Instructions section Lifting: Gradually increase as tolerated Driving/Machine Use: No limitations Weightbearing: Full weightbearing Non-emergency contact: Primary Care Provider and Urologist Call non-emergency contact if: your pain is not controlled and you have a fever Follow-up/Referrals: Hussein Luevano MD [Primary Care Provider] - (Ensure that you have your blood count checked within a week to follow-up on anemia.) Brent Hallman [Physician] - (Call to schedule colonoscopy.) Giorgi Brewer [Physician] - (Call to discuss further treatment of prostate cancer.) Diet: Low Fiber Addtl Attending Provider Instructions: None Pending Studies at Discharge: No Stand-Alone Forms: My [facility], Opioid Pain Management, Smoking Cessation Medications and DC Order Prescriptions: New morphine 60 mg Tablet Extended Release 60 mg PO TID 30 Days Qty: 90 RF: 0 morphine 15 mg Tablet 15 mg PO Q6H PRN (Reason: pain) 30 Days Qty: 90 RF: 0 Continued multivitamin Tablet 1 tab PO QAM RF: 0 Epogen 4,000 unit/mL Solution 4,000 unit subcut MOWEFR RF: 0 Zoladex 3.6 mg Implant 3.6 mg SUBCUT MONTHLY RF: 0 cod liver oil Capsule 1 cap PO QAM RF: 0 oxcarbazepine [Trileptal] 300 mg Tablet 300 mg PO BID RF: 0 ferrous sulfate 325 mg (65 mg iron) Tablet 325 mg PO QAM RF: 0 Discontinued morphine 10 mg/5 mL Solution 10 mg PO UD PRN (Reason: Breakthrough Pain) RF: 0 morphine 60 mg Tablet,Oral Only,Ext.Rel.12 Hr 60 mg PO Q12H RF: 0 Discharge Orders: Discharge Order (Routine); Ordered 05/30/19 Ordered By: Trey Ortega Admission Data Admit Date/Time: 05/27/19 18:04 Attending Provider: Trey Ortega Admit Provider: Eric Gaspar Primary Care Provider: Hussein Luevano Other Providers: Eric Gaspar ; Giorgi Brewer ; Brent Hallman ; Sharona Ye
--- NOTE | 2019-05-30 12:43 | Progress Note ---
DATE: 05/30/2019 DIAGNOSES: 1. Severe anemia. 2. Metastatic prostate cancer (bony mets). 3. Myelophthisic picture. 4. Hypoalbuminemia. 5. Mild thrombocytopenia. SUBJECTIVE: Maddy was seen and examined at bedside. His pain is much better controlled and actually will be discharged later on today according to Dr. Ortega, the manage hospitalist. Several concerns from heme/onc standpoint. This gentleman had profoundly low hemoglobin, thought to be actively bleeding. He was transfused during admission and his hemoglobin remains stable at this time. However, his white cell differential reveals emergence of immaturity as well as teardrops which suggest that there is some degree of infiltration within the bone marrow. This gentleman was also diagnosed with diffuse skeletal metastatic breast cancer. Thus needs to be worked up further on both runs for prostate cancer and possible infiltrating bone marrow disease. Thus instructed the managing hospitalist to be sure that Mr. Rodriguez arranges for outpatient followup within the next week or so. Nursing reports no overnight difficulties otherwise. OBJECTIVE: GENERAL: A very pleasant -Citizen Of [place] gentleman in no acute distress. VITAL SIGNS: Temperature 37.5, pulse 90, respiratory rate 14, blood pressure 143/77. SKIN: Without rash or lesion. HEENT: Oral mucosa without erythema or ulceration. HEART: Regular rate and rhythm. LUNGS: Clear to auscultation bilaterally. ABDOMEN: Soft, nontender, nondistended. EXTREMITIES: No clubbing, cyanosis or edema. NEUROLOGIC: The patient is grossly intact. LABORATORY DATA: WBC count 6100, hemoglobin 8.3, platelet count 66,000. Again, metamyelocytes, myelocytes as well as teardrops are being reported. Sodium 139, potassium 3.2, chloride 107, carbon dioxide 27, BUN 6, creatinine 0.61. IMPRESSION: 1. Cytopenias attributable to infiltrating marrow disease. 2. Severe anemia. 3. Hypoalbuminemia. 4. Metastatic prostate cancer. 5. Intractable skeletal pain. PLAN: Maddy Rodriguez is a pleasant 54-year-old gentleman who I met a couple of days ago, but he was admitted directly from Dr. Brewer's office and hemoglobin measured 5 grams per deciliter. Again, his past treatment has been somewhat sketchy and needs to be sorted out. Additionally, his peripheral blood counts over the past couple of days are concerning for myelophthisic type picture. I think either way bone marrow biopsy should be done to rule out infiltrating prostate cancer versus perhaps emerging hematologic malignancy. I spoke to Dr. Ortega, the managing hospitalist, and he informed me, Mr. Rodriguez would be discharged today and instructed to contact our office early next week for followup appointment. Thank you very much for allowing us to participate in his care. LENNY
[2019-05-30] MEDS ORDERED: bisacodyL 10 MG SUPP PR STA (14:30)
[2019-05-30] MEDS ORDERED: MAGNESIUM CITRATE 296 ML/BTL PO SCH (17:00)
== END 2019-05-30 19:17 | disposition home or self-care (01) | DRG 812 ==
LOC: ED 13:34 → SUATTDRO 18:04 → 2S 18:04

== ENCOUNTER 2019-07-03 11:47 | Inpatient (IN) ==
[2019-07-03 12:34] LABS: Hematocrit (blood only) 22.5 % (42-52); Hemoglobin 6.9 g/dL (14.0-18.0); Mean Corpuscular Hemoglobin 30.4 pg (25-34); Mean Corpuscular Hgb Conc 30.7 g/dL (32-36); Mean Corpuscular Volume 99.1 fL (80-100); Mean Platelet Volume 9.7 fL (7.4-10.4); Nucleated RBC # (auto) 0.62 K/uL (0-0); Platelet Count 59 K/uL (130-400); RDW Coefficient of Variation 18.6 % (11.5-14.5); RDW Standard Deviation 64.9 fL (36.4-46.3); Red Blood Count 2.27 M/uL (4.7-6.1); White Blood Count 4.45 K/uL (4.8-10.8)
[2019-07-03] MEDS ORDERED: SODIUM CHLORIDE 0.9% 250 ML IV PRN ×2 (12:35→17:38)
[2019-07-03 12:46] LABS: BUN Creatinine Ratio 10.3 (10-20); Calcium 9.4 mg/dl (8.5-10.1); Creatinine Clr Calc Pharmacy 81.3 ml/min; Est GFR (African American) 88.5; Est GFR (Non-African American) 76.3; Potassium 3.5 mmol/L (3.5-5.1)
[2019-07-03 12:49] LABS: ALC (manual) 1.14 K/uL (1.2-3.4); ANC (manual) 2.57 K/uL (1.4-6.5); Albumin Globulin Ratio 1.1 (0.9-2); Basophils # (manual) 0.04 K/uL (0-0.2); Basophils % (manual) 0.9 %; Bilirubin,Total 0.6 mg/dl (0.2-1); Eosinophils # (manual) 0.12 K/uL (0-0.5); Eosinophils % (manual) 2.8 %; Globulin 3.6 gm/dl (2.5-4.0); Lymphocytes # (manual) 1.14 K/uL (1.2-3.4); Lymphocytes % (manual) 25.7 %; Monocytes # (manual) 0.28 K/uL (0.11-0.59); Monocytes % (manual) 6.4 %; Myelocytes # (manual) 0.28 K/uL (0-0); Myelocytes % (manual) 6.4 %; Neutrophils # (manual) 2.57 K/uL (1.4-6.5); Neutrophils % (manual) 57.8 %; Tear Drop Cells 2+; Total Protein 7.6 gm/dl (6.4-8.2)
--- NOTE | 2019-07-03 13:03 | XRay Report ---
XR chest 1V portable CLINICAL HISTORY: Shortness of breath. COMPARISON STUDY: Chest CT May 27, 2019. FINDINGS: Lung volumes are normal. Lungs are clear. There is no pneumothorax or pleural effusion. Car diac size is normal. Mediastinal contours are normal. There is no evidence for pulmonary edema. Blast ic skeletal metastases are better depicted on CT of May 27, 2019. IMPRESSION: 1. No acute cardiopulmonary findings. 2. Blastic skeletal metastases, better depicted on chest CT May 27, 2019. Electronically signed by: Talib Dye M.D. 07/03/2019 1:02 PM
--- NOTE | 2019-07-03 15:55 | Emergency Department Note ---
Entered by Indy Montano acting as a scribe for Edilberto Hui MD History of Present Illness General Chief complaint: Referred by Doctor Stated complaint: BLOOD TRANSFUSION Time Seen by Provider: 07/03/19 12:23 Source: patient and family (sister) History of Present Illness Onset (ago): day(s) (today) Location: head, upper extremity and lower extremity Pain Consistency: + other (after his blood work showed severe anemia) Maximum Pain Intensity: 3 Quality: + other (referred by doctor ) Associated symptoms: + shortness of breath and + other (Positive green/black stool (resolved), fatigue. Negative blood in his stool. ) The patient is a 54 year old male who presents to the ED after being referred by his doctor. He is accompanied by his sister who reports the patient recently started chemo 1 week ago for prostate cancer. He states he went in for blood work today and it showed severe anemia, so Dr. Vásquez, Oncology recommended the patient go to the ED for further evaluation. The blood work was routine after having started chemotherapy. The patient states he feels very short of breath and fatigued. He denies any fevers or blood in his urine. He denies blood in his stool but does note his stool was green/black for a few days but it was brown again yesterday. Home Medications Home Medications Medication Instructions Recorded Confirmed Type cod liver oil 1 cap PO QAM 05/27/19 07/03/19 History ferrous sulfate 325 mg PO QAM 05/27/19 07/03/19 History multivitamin 1 tab PO QAM 05/27/19 07/03/19 History oxcarbazepine [Trileptal] 300 mg PO BID 05/27/19 07/03/19 History docusate sodium 100 mg capsule 100 mg PO DAILY 06/05/19 07/03/19 History epoetin neptali 4,000 unit/mL 4,000 unit SUBCUT MOWEFR 06/05/19 07/03/19 History injection solution goserelin 3.6 mg subcutaneous 3.6 mg SUBCUT MONTHLY 06/05/19 07/03/19 History implant sennosides 8.6 mg capsule 8.6 mg PO DAILY cap 06/05/19 07/03/19 History Allergies Allergy/AdvReac Type Severity Reaction Status Date / Time No Known Allergies Allergy Verified 07/03/19 13:04 Past Med/Surg History Medical History Anemia (Acute) S/P blood transfusion of 5 UPRBCs 05/27/19 Chronic pain (Chronic) Forgetfulness (Chronic) Pt has poor recall H/O transfusion of packed red blood cells (Resolved) 05/27/19 Prostate cancer (Chronic) 09/15/16 Prostate cancer metastatic to bone (Chronic) Seizure disorder (Chronic) Surgical History H/O prostatectomy (Resolved) 12/27/16 History of testicular surgery (Resolved) For undescended testes S/P radiation therapy (Resolved) Status post chemotherapy (Resolved) Family History Mother , at 75yo Multiple myeloma Father No problems noted. Brother No problems noted. Brother No problems noted. Brother No problems noted. Sister Hypertension Sister Bipolar disorder Other No significant family history Social History Preferred Language: Georgian Communication Ability: Effective Visual Impairment: No Limitations Hearing Ability: Normal Barrel Raiser Required: No Beliefs That Will Affect Care: None marital status: Current Living Situation: Spouse current occupational status: employed current occupation: Works in [place] Feels Safe at Home: Yes Smoking Status: Former smoker Tobacco Type: cigarettes ; Cigarettes Per Day: Quit in 2017;1 PPD x 29yrs ; Second Hand Exposure: No ; Hx Alcohol Use: No Hx Substance Use: No caffeine: No during the past year weight has: decreased > 10 lbs Review of Systems See HPI for pertinent positives & negatives. and A total of 10 systems reviewed and were otherwise negative Physical Exam Vital Signs Vital Signs - 24 hr 07/03/19 11:50 07/03/19 14:16 07/03/19 14:25 Temperature 36.8 C 36.8 C Temperature Source Oral Oral Pulse Rate 99 H 89 Pulse Rate [Apical] 95 H Pulse Rhythm Pulse Strength Respiratory Rate 18 20 16 Respiratory Effort / Characteristics Non-Labored Respiratory Depth Normal Respiratory Pattern Regular Blood Pressure 130/77 134/68 Blood Pressure [Right Arm] 139/78 Blood Pressure Mean 94 90 Blood Pressure Mean [Right Arm] 98 Blood Pressure Position Pulse Oximetry 99 98 98 Oxygen Delivery Method Room Air Room Air Sepsis Recent Fever Within 48 Hours No Sepsis Action Taken by Nursing No Action Required 07/03/19 14:35 07/03/19 14:50 07/03/19 15:20 Temperature 36.9 C 36.8 C Temperature Source Oral Oral Pulse Rate 94 H 91 H 90 Pulse Rate [Apical] Pulse Rhythm Regular Pulse Strength Normal Respiratory Rate 16 16 16 Respiratory Effort / Characteristics Respiratory Depth Respiratory Pattern Blood Pressure 137/80 139/72 143/79 H Blood Pressure [Right Arm] Blood Pressure Mean 99 94 100 Blood Pressure Mean [Right Arm] Blood Pressure Position Sitting Lying Pulse Oximetry 95 97 99 Oxygen Delivery Method Sepsis Recent Fever Within 48 Hours Sepsis Action Taken by Nursing Constitutional: Vital signs reviewed. Eyes: Pupils are equal round reactive to light. Conjunctiva are noninjected. ENT: Pharynx is clear without erythema or exudate. Mucous membranes are moist. Neck supple without meningeal signs. Respiratory: Clear to auscultation bilaterally. Breath sounds are equal bilaterally. Cardiovascular: Regular rate and rhythm. No rubs or gallops. GI: Soft, nondistended and nontender. Bowel sounds are present. RECTAL: Guaiac negative brown stool Musculoskeletal: No peripheral edema. No lower extremity tenderness. Integumentary: No cyanosis. Neurological: The patient is awake and alert. No focal deficits. Psychiatric: Normal affect. Course Course 1226: Past medical records reviewed. The patient was evaluated in room B2. A complete history and physical exam was performed. 1238: I obtained informed consent for a blood transfusion at this time. 1352: Discussed the patient's case with Dr. Gaspar, [facility] Hospitalist. The patient will be evaluated for further management. Administered Medications Critical Care Time Total Critical Care Time: 35 I have personally spent approximately 35 minutes of critical care time in the direct management of this patient. This includes bedside care, interpretation of diagnostic studies, and testing, discussion with consultants, patient, and family members, and other required patient management activities. These minutes are in excess of all separately billable procedures. Medical Decision Making Differential Diagnosis Differential diagnosis: Etiologies such as symptomatic anemia, GI bleed, pancytopenia, pneumonia, chemotherapy side effects, cardiac, as well as others were entertained. Medical Records Attestation: I reviewed the patient's medical records. I did perform a limited focused review of portions of the patient's old chart on the electronic medical record. He was admitted in May for severe anemia, possible GI bleed. He had blood work today. His hemoglobin was 10.9. Home Medications Current Medication List: was personally reviewed by me Laboratory Data Attestation: I reviewed the patient's lab results. Result diagrams: 07/03/19 12:00 07/03/19 12:00 Lab Results 07/03/19 07/03/19 07/03/19 Range/Units 12:00 12:00 12:00 WBC 4.45 L (4.8-10.8) K/uL RBC 2.27 L (4.7-6.1) M/uL Hgb 6.9 L* (14.0-18.0) g/dL Hct 22.5 L (42-52) % MCV 99.1 (80-100) fL MCH 30.4 (25-34) pg MCHC 30.7 L (32-36) g/dL RDW Std Deviation 64.9 H (36.4-46.3) fL RDW Coeff of Douglas 18.6 H (11.5-14.5) % Plt Count 59 L (130-400) K/uL MPV 9.7 (7.4-10.4) fL Absolute Nucleated RBC 0.62 H (0-0) K/uL Nucleated RBC % (auto) 14.0 % Neutrophils % (Manual) 57.8 % Lymphocytes % (Manual) 25.7 % Monocytes % (Manual) 6.4 % Eosinophils % (Manual) 2.8 % Basophils % (Manual) 0.9 % Myelocytes % (Man) 6.4 % Neutrophils # (Manual) 2.57 (1.4-6.5) K/uL Total Absolute Neuts 2.57 (1.4-6.5) K/uL Lymphocytes # (Manual) 1.14 L (1.2-3.4) K/uL Total Abs Lymphocytes 1.14 L (1.2-3.4) K/uL Monocytes # (Manual) 0.28 (0.11-0.59) K/uL Eosinophils # (Manual) 0.12 (0-0.5) K/uL Basophils # (Manual) 0.04 (0-0.2) K/uL Myelocytes # (Manual) 0.28 H (0-0) K/uL Tear Drop Cells 2+ Sodium 138 (136-145) mmol/L Potassium 3.5 (3.5-5.1) mmol/L Chloride 103 (98-107) mmol/L Carbon Dioxide 27 (21-32) mmol/L Anion Gap 8.0 (3-11) BUN 11 (7-18) mg/dl Creatinine 1.08 (0.6-1.4) mg/dl Est Cr Clr Drug Dosing 81.3 ml/min Est GFR ( Amer) 88.5 Est GFR (Non-Af Amer) 76.3 BUN/Creatinine Ratio 10.3 (10-20) Glucose 118 H (70-99) mg/dl Calcium 9.4 (8.5-10.1) mg/dl Total Bilirubin 0.6 (0.2-1) mg/dl AST 34 (15-37) U/L ALT 14 (12-78) U/L Alkaline Phosphatase 678 H (45-117) U/L Troponin I < 0.015 (0-0.045) ng/ml Total Protein 7.6 (6.4-8.2) gm/dl Albumin 4.0 (3.4-5.0) gm/dl Globulin 3.6 (2.5-4.0) gm/dl Albumin/Globulin Ratio 1.1 (0.9-2) Blood Type Antibody Screen Crossmatch 07/03/19 Range/Units 12:59 WBC (4.8-10.8) K/uL RBC (4.7-6.1) M/uL Hgb (14.0-18.0) g/dL Hct (42-52) % MCV (80-100) fL MCH (25-34) pg MCHC (32-36) g/dL RDW Std Deviation (36.4-46.3) fL RDW Coeff of Douglas (11.5-14.5) % Plt Count (130-400) K/uL MPV (7.4-10.4) fL Absolute Nucleated RBC (0-0) K/uL Nucleated RBC % (auto) % Neutrophils % (Manual) % Lymphocytes % (Manual) % Monocytes % (Manual) % Eosinophils % (Manual) % Basophils % (Manual) % Myelocytes % (Man) % Neutrophils # (Manual) (1.4-6.5) K/uL Total Absolute Neuts (1.4-6.5) K/uL Lymphocytes # (Manual) (1.2-3.4) K/uL Total Abs Lymphocytes (1.2-3.4) K/uL Monocytes # (Manual) (0.11-0.59) K/uL Eosinophils # (Manual) (0-0.5) K/uL Basophils # (Manual) (0-0.2) K/uL Myelocytes # (Manual) (0-0) K/uL Tear Drop Cells Sodium (136-145) mmol/L Potassium (3.5-5.1) mmol/L Chloride (98-107) mmol/L Carbon Dioxide (21-32) mmol/L Anion Gap (3-11) BUN (7-18) mg/dl Creatinine (0.6-1.4) mg/dl Est Cr Clr Drug Dosing ml/min Est GFR ( Amer) Est GFR (Non-Af Amer) BUN/Creatinine Ratio (10-20) Glucose (70-99) mg/dl Calcium (8.5-10.1) mg/dl Total Bilirubin (0.2-1) mg/dl AST (15-37) U/L ALT (12-78) U/L Alkaline Phosphatase (45-117) U/L Troponin I (0-0.045) ng/ml Total Protein (6.4-8.2) gm/dl Albumin (3.4-5.0) gm/dl Globulin (2.5-4.0) gm/dl Albumin/Globulin Ratio (0.9-2) Blood Type O Positive Antibody Screen NEGATIVE Crossmatch See Detail Imaging Data Radiologist's Impression: Radiology results as stated below per my review and the radiologist's interpretation: XR chest 1V portable CLINICAL HISTORY: Shortness of breath. COMPARISON STUDY: Chest CT May 27, 2019. FINDINGS: Lung volumes are normal. Lungs are clear. There is no pneumothorax or pleural effusion. Cardiac size is normal. Mediastinal contours are normal. There is no evidence for pulmonary edema. Blastic skeletal metastases are better depicted on CT of May 27, 2019. IMPRESSION: 1. No acute cardiopulmonary findings. 2. Blastic skeletal metastases, better depicted on chest CT May 27, 2019. Electronically signed by: Talib Dye M.D. 07/03/2019 1:02 PM ECG Data Attestation: I personally reviewed and interpreted this ECG as follows: Indication: + SOB/dyspnea Rate (beats per minute): 90 Rhythm: + normal sinus ECG Intervals/blocks: + Prolonged QT ECG ST segments: no ST elevation ECG Findings: no PVCs Blood Pressure Blood Pressure Findings: Elevated blood pressure Blood Pressure Disposition: elevated BP felt to be situational MDM Narrative I did evaluate the patient as noted above. Patient is presenting with symptomatic anemia. IV access was established. The patient was placed on a continuous library monitor. I did order and personally review the patient's 12- lead EKG as described above. He has normal sinus rhythm with a prolonged QT. I did order and personally reviewed the images of the patient's chest x-ray as described above. There is no evidence of pneumonia or failure. I did order and review the patient's blood work as noted in the electronic medical record. He has pancytopenia with a hemoglobin of 6.9. I did obtain informed consent for transfusion. I did order a transfusion for 1 unit of packed RBCs. Electrolytes are unremarkable. I did do a rectal examination which showed guaiac negative brown stool. He did receive the unit of blood here. He has no signs or symptoms consistent with transfusion reaction. I did discuss case with the hospitalist and pillowcase turner. Impression & Plan Symptomatic anemia, Pancytopenia, Prostate cancer, Prolonged QT interval Discharge Plan Visit Data Chief Complaint: Referred by Doctor Stated Complaint: BLOOD TRANSFUSION ED Provider: Edilberto Hui Discharge Problem: Symptomatic anemia, Pancytopenia, Prostate cancer, Prolonged QT interval Patient Disposition: Being Evaluated by Hospitalist Forms Stand Alone Forms: [facility] Prescriptions Prescriptions: No Action docusate sodium [Colace] 100 mg capsule 100 mg PO DAILY RF: 0 senna 8.6 mg capsule 8.6 mg PO DAILY RF: 0 multivitamin Tablet 1 tab PO QAM RF: 0 cod liver oil Capsule 1 cap PO QAM RF: 0 oxcarbazepine [Trileptal] 300 mg Tablet 300 mg PO BID RF: 0 ferrous sulfate 325 mg (65 mg iron) Tablet 325 mg PO QAM RF: 0 Epogen 4,000 unit/mL solution 4,000 unit subcut MOWEFR RF: 0 Zoladex 3.6 mg implant 3.6 mg SUBCUT MONTHLY RF: 0 Referrals Referrals: ProHussein MD [Primary Care Provider] - The scribe's documentation has been prepared under my direction and personally reviewed by me in its entirety. I confirm that the note above accurately reflects all work, treatment, procedures, and medical decision making performed by me.
--- NOTE | 2019-07-03 15:58 | History & Physical Report ---
Date of Service July 03, 2019 Assessment & Plan (1) Symptomatic anemia: Admit to PCU on tele. Pt has already received 1 unit of PRBC in the ER,plane to give a second unit and carefully observe for volume overload since pt has PMHx of CHF. CBC Q6 hr x 2, CMP in am Fecal occult blood pending.If positive consider consulting GI. Anemia likely due to the poor production due to metastases to the bone, recent chemo and radiation therapy. Iron study pending. Consult . DVT ppx contraindicated since pt is severely anemic with possibility of GI bleed. Teds and SCD-s Full Code. Present on Admission?: Yes (2) Pancytopenia: as mentioned above, pt has metastatic cancer to the bones and decreased production of all blood cells. Pt should continue his epoetin A 4000 units M// after discharge and agreement with Dr. Brewer. Present on Admission?: Yes (3) Metastatic malignant neoplasm to prostate: Continue Home meds Goserelin 3.6 sc implant /mo, Oxcarbazepine 300 mg PO BID, MV, . Present on Admission?: Yes (4) Prolonged QT interval: Repeat EKG in am , Magnesium pending. Replenish electrolytes and if continues to be prolonged consider TTE and cardiology consult. Present on Admission?: Yes (5) Constipation, chronic: Continue senna 8.6 mg PO daily and docusate 100 mg PO daily. Present on Admission?: Yes History of Present Illness Chief Complaint: severe anemia Primary Care Provider: Hussein Luevano MD Pt is a 54 y/o male with PMHx of metastatic prostate cancer to the bone.He is patient of oncologist.Pt is referred by his doctor to the ED. He is accompanied by his who reports the patient recently started chemo 1 week ago for prostate cancer. He states he went in for blood work today and it showed severe anemia, so Dr. Brewer, Oncology recommended the patient go to the ED for further evaluation.The patient reports he feels very short of breath and fatigued. He denies any fevers or blood in his urine. He denies blood in his stool but does note his stool was green/black for a few days but it was brown again yesterday.Pt takes Po iron. Guiac was negative.Pt is admitted to PCU on tele for severe anemia. Allergies Allergy/AdvReac Type Severity Reaction Status Date / Time No Known Allergies Allergy Verified 07/03/19 13:04 Home Medications Home Medications Medication Instructions Recorded Confirmed Type cod liver oil 1 cap PO QAM 05/27/19 07/03/19 History ferrous sulfate 325 mg PO QAM 05/27/19 07/03/19 History multivitamin 1 tab PO QAM 05/27/19 07/03/19 History oxcarbazepine [Trileptal] 300 mg PO BID 05/27/19 07/03/19 History docusate sodium 100 mg capsule 100 mg PO DAILY 06/05/19 07/03/19 History epoetin neptali 4,000 unit/mL 4,000 unit SUBCUT MOWEFR 06/05/19 07/03/19 History injection solution goserelin 3.6 mg subcutaneous 3.6 mg SUBCUT MONTHLY 06/05/19 07/03/19 History implant sennosides 8.6 mg capsule 8.6 mg PO DAILY cap 06/05/19 07/03/19 History Past Med/Surg History Medical History Anemia (Acute) S/P blood transfusion of 5 UPRBCs 05/27/19 Chronic pain (Chronic) Forgetfulness (Chronic) Pt has poor recall H/O transfusion of packed red blood cells (Resolved) 05/27/19 Prostate cancer (Chronic) 09/15/16 Prostate cancer metastatic to bone (Chronic) Seizure disorder (Chronic) Surgical History H/O prostatectomy (Resolved) 12/27/16 History of testicular surgery (Resolved) For undescended testes S/P radiation therapy (Resolved) Status post chemotherapy (Resolved) Family History Mother , at 75yo Multiple myeloma Father No problems noted. Brother No problems noted. Brother No problems noted. Brother No problems noted. Sister Hypertension Sister Bipolar disorder Other No significant family history Social History Preferred Language: Paraguayan Communication Ability: Effective Visual Impairment: No Limitations Hearing Ability: Normal Bar Assistant Required: No Beliefs That Will Affect Care: None marital status: Current Living Situation: Family current occupational status: employed current occupation: Works in [employer] Other Information That Helps Us Care for You: No Feels Safe at Home: Yes Safety Concerns: Feels Safe At This Time Smoking Status: Former smoker Tobacco Type: cigarettes ; Cigarettes Per Day: Quit in 2017;1 PPD x 29yrs ; Second Hand Exposure: No ; Hx Alcohol Use: No Hx Substance Use: No caffeine: No during the past year weight has: decreased > 10 lbs Physical Exam Constitutional: WD/WN, vitals as above well developed and + ill appearing Eyes: PERRL, conjunctivae normal, anicteric sclerae ENMT: external ear and nose normal, oropharynx normal Neck: trachea midline, no thyromegaly Respiratory: normal respiratory effort, lungs clear to auscultation Cardiovascular: Heart Sounds: normal S1, normal S2 and + murmur Vessels: do rsalis pedis pulses present Gastrointestinal (Abdomen): normal bowel sounds, soft, nontender, no hepatosplenomegaly guiac negative Musculoskeletal: no cyanosis or clubbing, extremities motor strength 5/5 Skin: pale Neurologic: patellar DTR's 2+ bilat, sensation intact Psychiatric: A+Ox3, euthymic affect Lymphatic: no cervical or axillary lymphadenopathy Results & Data Vital Signs (Past 12 Hours) Vital Signs Temp Pulse Pulse Resp BP BP Pulse Ox 07/03/19 15:52 37 C 89 18 144/74 H 100 07/03/19 15:20 36.8 C 90 16 143/79 H 99 07/03/19 14:50 91 H 16 139/72 97 07/03/19 14:35 36.9 C 94 H 16 137/80 95 07/03/19 14:25 95 H 16 139/78 98 07/03/19 14:16 36.8 C 89 20 134/68 98 07/03/19 11:50 36.8 C 99 H 18 130/77 99 Code Status & VTE Plan Code Status full code VTE Prophylaxis Plan VTE Prophylaxis will be ordered: Yes PG Care Time/CCT Total # of Minutes Spent Total Time Spent with Patient: Total time spent is greater than 50% in coordination of care (as documented) at patient's floor/unit and/or counseling patient:
[2019-07-03] MEDS ORDERED: EPOETIN ALFA 4,000 UNIT/ML VIAL SQ SCH (17:38)
[2019-07-03] MEDS ORDERED: ZOLPIDEM TARTRATE 5 MG TAB PO PRN (17:38)
[2019-07-03] MEDS ORDERED: ALUMINUM/MAGNESIUM SUSP 30 ML UDC PO PRN (17:38)
[2019-07-03] MEDS ORDERED: ONDANSETRON INJ 2 MG/ML 2 ML VIAL IV PRN (17:38)
[2019-07-03] MEDS ORDERED: POLYETHYLENE (MIRALAX) 17 GM PACK PO PRN (17:38)
[2019-07-03] MEDS ORDERED: MAGNESIUM HYDROXIDE SUSP 30 ML UDC PO PRN (17:38)
[2019-07-03 18:10] LABS: Thyroid Stimulating Hormone 1.54 uIu/ml (0.300-4.500)
[2019-07-03 18:14] LABS: Mean Corpuscular Hgb Conc 31.3 g/dL (32-36)
[2019-07-03 18:40] LABS: Hematocrit (blood only) 24.3 % (42-52); Hemoglobin 7.6 g/dL (14.0-18.0); Mean Corpuscular Hemoglobin 31.1 pg (25-34); Mean Corpuscular Volume 99.6 fL (80-100); Mean Platelet Volume 8.7 fL (7.4-10.4); Nucleated RBC # (auto) 0.82 K/uL (0-0); Nucleated RBC % (auto) 14.5 %; Platelet Count 54 K/uL (130-400); RDW Coefficient of Variation 17.5 % (11.5-14.5); RDW Standard Deviation 61.5 fL (36.4-46.3); Red Blood Count 2.44 M/uL (4.7-6.1); White Blood Count 5.69 K/uL (4.8-10.8)
[2019-07-03] MEDS: ENZALUTAMIDE PO SCH (20:24)
[2019-07-03] MEDS: MoRPHine SULFATE IR 15 MG TAB (IMMEDIATE RELEASE) PO PRN (20:24)
[2019-07-03] MEDS: OXcarbazepine 150 MG TABLET PO SCH (21:39)
[2019-07-03 23:51] LABS: Mean Corpuscular Hgb Conc 31.8 g/dL (32-36)
[2019-07-03 23:53] LABS: Mean Platelet Volume 8.7 fL (7.4-10.4); Platelet Count 53 K/uL (130-400)
[2019-07-04 00:31] LABS: Hematocrit (blood only) 22.3 % (42-52); Hemoglobin 7.1 g/dL (14.0-18.0); Mean Corpuscular Hemoglobin 31.3 pg (25-34); Mean Corpuscular Volume 98.2 fL (80-100); Nucleated RBC # (auto) 0.65 K/uL (0-0); Nucleated RBC % (auto) 12.6 %; RDW Coefficient of Variation 17.8 % (11.5-14.5); RDW Standard Deviation 61.7 fL (36.4-46.3); Red Blood Count 2.27 M/uL (4.7-6.1); White Blood Count 5.14 K/uL (4.8-10.8)
[2019-07-04] MEDS ORDERED: SODIUM CHLORIDE 0.9% 250 ML IV PRN (01:44)
[2019-07-04] MEDS: ACETAMINOPHEN 325 MG TAB PO PRN ×2 (03:36→08:52)
[2019-07-04] MEDS: MoRPHine SULFATE IR 15 MG TAB (IMMEDIATE RELEASE) PO PRN ×2 (06:00→16:09)
[2019-07-04] MEDS: SENNA 8.6 MG TAB PO SCH (08:53)
[2019-07-04] MEDS: DOCUSATE SODIUM 100 MG CAP PO SCH (08:53)
[2019-07-04] MEDS: OXcarbazepine 150 MG TABLET PO SCH ×2 (08:53→20:52)
[2019-07-04] MEDS: MULTIVITAMIN TAB PO SCH (08:53)
[2019-07-04] MEDS: FERROUS SULFATE 325 MG TAB PO SCH (08:53)
[2019-07-04 08:54] LABS: Hematocrit (blood only) 26.6 % (42-52); Hemoglobin 8.7 g/dL (14.0-18.0); Mean Corpuscular Hgb Conc 32.7 g/dL (32-36); Mean Corpuscular Volume 94.7 fL (80-100); Nucleated RBC # (auto) 0.44 K/uL (0-0); Nucleated RBC % (auto) 8.5 %; RDW Coefficient of Variation 18.2 % (11.5-14.5); RDW Standard Deviation 60.1 fL (36.4-46.3); Red Blood Count 2.81 M/uL (4.7-6.1); White Blood Count 5.18 K/uL (4.8-10.8)
[2019-07-04] MEDS ORDERED: NON-FORMULARY MEDICATION (Cod Liver Oil 1 CAP) PO SCH (09:00)
[2019-07-04] MEDS ORDERED: ONDANSETRON 4 MG OD TAB PO PRN (09:09)
[2019-07-04 09:43] LABS: Mean Platelet Volume 8.6 fL (7.4-10.4); Platelet Count 42 K/uL (130-400)
[2019-07-04 10:19] LABS: ALC (manual) 1.42 K/uL (1.2-3.4); ANC (manual) 2.93 K/uL (1.4-6.5); Giant Platelets 1+; Lymphocytes # (manual) 1.42 K/uL (1.2-3.4); Lymphocytes % (manual) 27.4 %; Metamyelocytes # (manual) 0.15 K/uL (0-0); Metamyelocytes % (manual) 2.8 %; Monocytes # (manual) 0.44 K/uL (0.11-0.59); Monocytes % (manual) 8.5 %; Myelocytes # (manual) 0.24 K/uL (0-0); Myelocytes % (manual) 4.7 %; Neutrophils # (manual) 2.93 K/uL (1.4-6.5); Neutrophils % (manual) 56.6 %; Tear Drop Cells 2+
[2019-07-04 10:22] LABS: Reticulocyte % 4.2 % (0.5-2.0); Reticulocytes # 0.12 10^6/uL (0.02-0.10)
[2019-07-04 10:48] LABS: Albumin Level 3.1 gm/dl (3.4-5.0); BUN Creatinine Ratio 10.3 (10-20); Calcium 8.8 mg/dl (8.5-10.1); Est GFR (African American) 111.8; Est GFR (Non-African American) 96.5; Potassium 3.6 mmol/L (3.5-5.1)
[2019-07-04 11:00] LABS: Bilirubin,Total 0.6 mg/dl (0.2-1); Globulin 3.2 gm/dl (2.5-4.0); Total Protein 6.3 gm/dl (6.4-8.2)
[2019-07-04 11:12] LABS: Folate (Folic Acid) 16.63 ng/ml (>5.38)
--- NOTE | 2019-07-04 15:10 | Oncology Consultation ---
Date of Consultation July 04, 2019 Assessment & Plan (1) Symptomatic anemia: His anemia is most likely multifactorial. His TIBC is low, which would fit with a picture of anemia of chronic disease, related to his cancer. However, his platelets are low and he has increased immature marrow forms and teardrop cells in his peripheral blood. 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 We will need to manage him supportively until we see a response in his disease. If he requires frequent transfusions, we could consider growth factor support. However, there is some evidence that DMITRIY therapy may lead to worse oncologic outcomes, so I would p refer to avoid that if possible. Present on Admission?: Yes (2) Prostate cancer: He has very extensive disease, though interestingly his PSA has fallen by close to 100 ng/mL in 2 weeks. Whether this represents treatment effect from RT or possibly from the enzalutamide is unclear, but it is encouraging none the le ss. I would continue to manage his pain as needed and to give him an aggressive bowel regimen to make sure he is moving his bowels at least every other day. Present on Admission?: Yes History of Present Illness Reason for Consultation: Metastatic prostate cancer Symptomatic anemia Attending Physician: Dc Hernandez DO History of Present Illness Mr. Castañeda is a 54 year old man who was in otherwise good health until 2017. He had a screening PSA at that time that was 21.7. He had a prostatic nodule by exam and so underwent TRUS with biopsies 09/15/16, revealing [place] 4+4 prost atic adenocarcinoma. Initial staging scans in October 2016 were negative for metastatic disease. On 12/27/16, he underwent radical prostatectomy, revealing stage IIIB (pT3b pN0 cM0) disease with negative margins. However, by February 2017 his PSA was 72 and scans revealed widespread osseous metastases. He has been on both docetaxel and abiraterone since that time and initially responded to both. However, he then tried both a second time after his disease progressed, due to limited availability of other agents in [place]. He has not responded to these treatments and has seen steady progression since the beginning of the year. I met him in May and have been working on getting him started on treatment. He started enzalutamide last week. His hemoglobin and platelets have been low since I met him and have trended down. He also has widespread osseous metastatic disease that is painful, so he has been undergoing palliative RT to his back. I have been getting weekly labs and his CBC yesterday as an outpatient was 6.2. We could not arrange a transfusion as an outpatient and he was symptomatic, so he came to the ER. Since admission, he has received 3 units of PRBCs and has responded appropriately. He has no signs or symptoms of bleeding and specifically denies any hematochezia, melena, hematuria, epistaxis, or oral bleeding. He was short of breath prior to the transfusion and is less so now. He is still in pain but is improving some. Allergies Allergy/AdvReac Type Severity Reaction Status Date / Time No Known Allergies Allergy Verified 07/03/19 13:04 Home Medications Home Medications Medication Instructions Recorded Confirmed Type cod liver oil 1 cap PO QAM 05/27/19 07/03/19 History ferrous sulfate 325 mg PO QAM 05/27/19 07/03/19 History multivitamin 1 tab PO QAM 05/27/19 07/03/19 History oxcarbazepine [Trileptal] 300 mg PO BID 05/27/19 07/03/19 History docusate sodium 100 mg capsule 100 mg PO DAILY 06/05/19 07/03/19 History epoetin neptali 4,000 unit/mL 4,000 unit SUBCUT MOWEFR 06/05/19 07/03/19 History injection solution goserelin 3.6 mg subcutaneous 3.6 mg SUBCUT MONTHLY 06/05/19 07/03/19 History implant sennosides 8.6 mg capsule 8.6 mg PO DAILY cap 06/05/19 07/03/19 History Patient History Medical History Anemia (Acute) S/P blood transfusion of 5 UPRBCs 05/27/19 Chronic pain (Chronic) Forgetfulness (Chronic) Pt has poor recall H/O transfusion of packed red blood cells (Resolved) 05/27/19 Prostate cancer (Chronic) 09/15/16 Prostate cancer metastatic to bone (Chronic) Seizure disorder (Chronic) Surgical History H/O prostatectomy (Resolved) 12/27/16 History of testicular surgery (Resolved) For undescended testes S/P radiation therapy (Resolved) Status post chemotherapy (Resolved) Family History Mother , at 75yo Multiple myeloma Father No problems noted. Brother No problems noted. Brother No problems noted. Brother No problems noted. 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 Required: No Beliefs That Will Affect Care: None marital status: Current Living Situation: Family current occupational status: employed current occupation: Works in [place] Other Information That Helps Us Care for You: No Feels Safe at Home: Yes Safety Concerns: Feels Safe At This Time Smoking Status: Former smoker Tobacco Type: cigarettes ; Cigarettes Per Day: Quit in 2017;1 PPD x 29yrs ; Second Hand Exposure: No ; Hx Alcohol Use: No Hx Substance Use: No caffeine: No during the past year weight has: decreased > 10 lbs Review of Systems Review of Systems: All systems reviewed & are unremarkable except as noted in HPI & below Physical Exam Constitutional: + ill appearing (chronically) and comfortable; no acute distress Eyes: + anicteric sclerae ENMT: external ear and nose normal, oropharynx normal Respiratory: normal respiratory effort, lungs clear to auscultation Cardiovascular: RRR, no murmur, no edema Gastrointestinal (Abdomen): Inspection/Auscultation: normal bowel sounds; abdomen not distended Percussion/Palpation: abdomen soft; abdomen nontender Psychiatric: A+Ox3, euthymic affect Lymphatic: no cervical or axillary lymphadenopathy Results & Data Vital Signs (Past 12 Hours) Vital Signs Temp Pulse Pulse Resp BP BP Pulse Ox 07/04/19 11:18 37.1 C 87 19 158/82 H 98 07/04/19 07:43 36.9 C 84 18 146/76 H 100 07/04/19 07:25 83 07/04/19 06:43 36.7 C 84 12 144/79 H 98 07/04/19 06:13 36.8 C 84 18 146/80 H 98 07/04/19 05:58 36.4 C L 86 18 156/79 H 96 07/04/19 05:40 36.8 C 91 H 18 153/83 H 100 07/04/19 04:32 36.9 C 82 16 149/80 H 99 07/04/19 04:31 36.9 C 82 16 149/80 H 99 07/04/19 03:30 37.2 C 85 18 158/82 H 99 Laboratory Results Abnormal lab results 07/03/19 07/03/19 07/03/19 Range/Units 12:00 12:59 18:06 RBC 2.44 L (4.7-6.1) M/uL Hgb 7.6 L (14.0-18.0) g/dL Hct 24.3 L (42-52) % MCHC 31.3 L (32-36) g/dL RDW Std Deviation 61.5 H (36.4-46.3) fL RDW Coeff of Douglas 17.5 H (11.5-14.5) % Plt Count 54 L (130-400) K/uL Reticulocyte % (Auto) (0.5-2.0) % Reticulocyte # (0.02-0.10) 10^6/uL Absolute Nucleated RBC 0.82 H (0-0) K/uL Metamyelocytes # (Man) (0-0) K/uL Myelocytes # (Manual) (0-0) K/uL Glucose (70-99) mg/dl TIBC (250-450) mcg/dl Alkaline Phosphatase (45-117) U/L Total Protein (6.4-8.2) gm/dl Albumin (3.4-5.0) gm/dl Prostate Specific Ag 578.000 H (0-4) ng/ml Crossmatch See Detail 07/03/19 07/04/19 07/04/19 Range/Units 23:35 08:39 10:11 RBC 2.27 L 2.81 L (4.7-6.1) M/uL Hgb 7.1 L 8.7 L (14.0-18.0) g/dL Hct 22.3 L 26.6 L (42-52) % MCHC 31.8 L (32-36) g/dL RDW Std Deviation 61.7 H 60.1 H (36.4-46.3) fL RDW Coeff of Douglas 17.8 H 18.2 H (11.5-14.5) % Plt Count 53 L 42 L (130-400) K/uL Reticulocyte % (Auto) 4.2 H (0.5-2.0) % Reticulocyte # 0.12 H (0.02-0.10) 10^6/uL Absolute Nucleated RBC 0.65 H 0.44 H (0-0) K/uL Metamyelocytes # (Man) 0.15 H (0-0) K/uL Myelocytes # (Manual) 0.24 H (0-0) K/uL Glucose (70-99) mg/dl TIBC (250-450) mcg/dl Alkaline Phosphatase (45-117) U/L Total Protein (6.4-8.2) gm/dl Albumin (3.4-5.0) gm/dl Prostate Specific Ag (0-4) ng/ml Crossmatch 07/04/19 Range/Units 10:11 RBC (4.7-6.1) M/uL Hgb (14.0-18.0) g/dL Hct (42-52) % MCHC (32-36) g/dL RDW Std Deviation (36.4-46.3) fL RDW Coeff of [place] (11.5-14.5) % Plt Count (130-400) K/uL Reticulocyte % (Auto) (0.5-2.0) % Reticulocyte # (0.02-0.10) 10^6/uL Absolute Nucleated RBC (0-0) K/uL Metamyelocytes # (Man) (0-0) K/uL Myelocytes # (Manual) (0-0) K/uL Glucose 123 H (70-99) mg/dl TIBC 230 L (250-450) mcg/dl Alkaline Phosphatase 613 H (45-117) U/L Total Protein 6.3 L (6.4-8.2) gm/dl Albumin 3.1 L (3.4-5.0) gm/dl Prostate Specific Ag (0-4) ng/ml Crossmatch
--- NOTE | 2019-07-04 15:57 | Hospitalist Progress Note ---
Date of Service July 04, 2019 Assessment & Plan (1) Metastatic malignant neoplasm to prostate: Mr. Castañeda is a 54yo gentleman with metastatic prostate cancer to the bone who presents with symptomatic anemia requiring a blood transfusion. Symptomatic Anemia -Pt with weakness, fatigue even posttransfusion -Hgb <7 on admission, s/p 2U blood with Hgb of 8.7 currently -likely secondary to metastases to bone and marrow given also lower sided WBC and thrombocytopenia -May be also a component of anemia of chronic disease -Will likely require close outpt weekly monitoring. -will monitor overnight with repeat H/H check in AM Back pain in the setting of bony metastases from prostate cancer -Pt with significant back pain -Likely secondary to his metastatic prostate cancer to bone -started on long acting MS Contin 15mg BID with morphine IR 15mg q6h for breakthrough pain. -also started on topical diclofenac with qid application -OMT done by Dr. Hernandez as well with instruction to family member on how to perform as needed. -will continue to monitor Prostate Cancer with bony mets -Pt follows with Dr. Brewer-appreciate recs -currently on Xtandi and Trileptal for neuropathy; continue Constipation -Given chronic use of opioids for cancer pain, pt has some constipation -continue scheduled senna and colace -continue PRN milk of mag and miralax -will continue to monitor FEN/GI: Heart healthy DVT prophylaxis: pt thrombocytopenic; SCDs and TEDs CODE STATUS: Full Dispo: d/c pending improvement in anemia symptoms Supervising Physician Co-Signing Physician Notes I personally examined the patient and verified all adams points of history and exam, discussed case, and agree with decision making with Dr Pemberton. Hard to tell if he is feeling better yetshe has not been up and around much yet. His family also notes he tends to minimize his symptoms. He does complain of some back pain. He does not seem short of breath, lightheaded, or weak right now. Case discussed with Dr. Brewer extensively. Vitals noted, in general he is awake and alert, pleasant no distress. HEENT normocephalic atraumatic mucous members are moist. Lungs are clear to auscultation bilaterally no rales rhonchi or wheezes with good effort. Bilateral paraspinals mildly hypertonic and tender with decreased range of motiondirect myofascial done, taught family how to do this as well. Patient tolerated well. Symptomatic anemiaseems to have improved post transfusion. Definitely want to follow to ensure his hemoglobin stays stable, as well as have him up and around more to ensure that his symptoms have in fact resolved. But if his hemoglobin is stable by morning and his symptoms are better, hopefully home tomorrow. Back painpredominantly due to bony replacement from his cancer, but does have some paraspinal hypertonicity. Diclofenac gel 4 times daily, taught family how to do gentle OMT like stretches. Stable for MedSurg, otherwise as above. Subjective Mr. Castañeda states he still feels weak, and has significant back pain. Denies any headache, changes to vision, cough, runny nose, sore throat, dizziness, chest pain, SOB, palpitations, abdominal pain, diarrhea or constipation, swelling in hands or feet. Does haves some numbness or tingling in lower extremeiteis.. Review of Systems Review of Systems: All systems reviewed & are unremarkable except as noted in HPI & below Physical Exam Physical Exam: General: Alert, oriented. No acute distress, thin genetleman Skin: No noted rashes or bruises Psych: Appropriate mood and affect Neuro: No gross deficits, significant pain when back palpated. Able to move all extremities. HEENT: NC/AT Chest: Nontender to palpation. CV: RRR, Normal s1, s2. No murmurs appreciated Resp: Breath sounds clear bilaterally, no increased effort of breathing. No crackles/rhonchi/rales. Abdomen: Soft, nontender, nondistended. No guarding. No organomegaly appr eciated. Extremities: No edema in lower extremities bilaterally. Results & Data Vital Signs (Past 12 Hours) Vital Signs Temp Pulse Pulse Resp BP BP BP 07/04/19 15:32 36.8 C 80 18 157/82 H 07/04/19 11:18 37.1 C 87 19 158/82 H 07/04/19 07:43 36.9 C 84 18 146/76 H 07/04/19 07:25 83 07/04/19 06:43 36.7 C 84 12 144/79 H 07/04/19 06:13 36.8 C 84 18 146/80 H 07/04/19 05:58 36.4 C L 86 18 156/79 H 07/04/19 05:40 36.8 C 91 H 18 153/83 H 07/04/19 04:32 36.9 C 82 16 149/80 H 07/04/19 04:31 36.9 C 82 16 149/80 H Pulse Ox 07/04/19 15:32 99 07/04/19 11:18 98 07/04/19 07:43 100 07/04/19 07:25 07/04/19 06:43 98 07/04/19 06:13 98 07/04/19 05:58 96 07/04/19 05:40 100 07/04/19 04:32 99 07/04/19 04:31 99 Laboratory Results Laboratory Results - last 24 hr 07/03/19 07/03/19 07/03/19 12:00 12:59 18:06 WBC 5.69 RBC 2.44 L Hgb 7.6 L Hct 24.3 L MCV 99.6 MCH 31.1 MCHC 31.3 L RDW Std Deviation 61.5 H RDW Coeff of [place] 17.5 H Plt Count 54 L MPV 8.7 Reticulocyte % (Auto) Reticulocyte # Absolute Nucleated RBC 0.82 H Nucleated RBC % (auto) 14.5 Neutrophils % (Manual) Lymphocytes % (Manual) Monocytes % (Manual) Metamyelocytes % (Man) Myelocytes % (Man) Neutrophils # (Manual) Total Absolute Neuts Lymphocytes # (Manual) Total Abs Lymphocytes Monocytes # (Manual) Metamyelocytes # (Man) Myelocytes # (Manual) Giant Platelets Tear Drop Cells Sodium Potassium Chloride Carbon Dioxide Anion Gap BUN Creatinine Est Cr Clr Drug Dosing Est GFR ( Amer) Est GFR (Non-Af Amer) BUN/Creatinine Ratio Glucose Calcium Iron TIBC Total Bilirubin AST ALT Alkaline Phosphatase NT-Pro-B Natriuret Pep 349 Total Protein Albumin Globulin Albumin/Globulin Ratio Prostate Specific Ag 578.000 H Vitamin B12 Folate TSH 1.540 Blood Type O Positive Antibody Screen NEGATIVE Crossmatch See Detail 07/03/19 07/04/19 07/04/19 23:35 08:39 10:11 WBC 5.14 5.18 RBC 2.27 L 2.81 L Hgb 7.1 L 8.7 L Hct 22.3 L 26.6 L MCV 98.2 94.7 MCH 31.3 31.0 MCHC 31.8 L 32.7 RDW Std Deviation 61.7 H 60.1 H RDW Coeff of [place] 17.8 H 18.2 H Plt Count 53 L 42 L MPV 8.7 8.6 Reticulocyte % (Auto) 4.2 H Reticulocyte # 0.12 H Absolute Nucleated RBC 0.65 H 0.44 H Nucleated RBC % (auto) 12.6 8.5 Neutrophils % (Manual) 56.6 Lymphocytes % (Manual) 27.4 Monocytes % (Manual) 8.5 Metamyelocytes % (Man) 2.8 Myelocytes % (Man) 4.7 Neutrophils # (Manual) 2.93 Total Absolute Neuts 2.93 Lymphocytes # (Manual) 1.42 Total Abs Lymphocytes 1.42 Monocytes # (Manual) 0.44 Metamyelocytes # (Man) 0.15 H Myelocytes # (Manual) 0.24 H Giant Platelets 1+ Tear Drop Cells 2+ Sodium Potassium Chloride Carbon Dioxide Anion Gap BUN Creatinine Est Cr Clr Drug Dosing Est GFR ( Amer) Est GFR (Non-Af Amer) BUN/Creatinine Ratio Glucose Calcium Iron TIBC Total Bilirubin AST ALT Alkaline Phosphatase NT-Pro-B Natriuret Pep Total Protein Albumin Globulin Albumin/Globulin Ratio Prostate Specific Ag Vitamin B12 Folate TSH Blood Type Antibody Screen Crossmatch 07/04/19 07/04/19 10:11 10:11 WBC RBC Hgb Hct MCV MCH MCHC RDW Std Deviation RDW Coeff of [place] Plt Count MPV Reticulocyte % (Auto) Reticulocyte # Absolute Nucleated RBC Nucleated RBC % (auto) Neutrophils % (Manual) Lymphocytes % (Manual) Monocytes % (Manual) Metamyelocytes % (Man) Myelocytes % (Man) Neutrophils # (Manual) Total Absolute Neuts Lymphocytes # (Manual) Total Abs Lymphocytes Monocytes # (Manual) Metamyelocytes # (Man) Myelocytes # (Manual) Giant Platelets Tear Drop Cells Sodium 137 Potassium 3.6 Chloride 104 Carbon Dioxide 27 Anion Gap 6.0 BUN 9 Creatinine 0.87 Est Cr Clr Drug Dosing 101.0 Est GFR ( Amer) 111.8 Est GFR (Non-Af Amer) 96.5 BUN/Creatinine Ratio 10.3 Glucose 123 H Calcium 8.8 Iron 122 TIBC 230 L Total Bilirubin 0.6 AST 30 ALT 12 Alkaline Phosphatase 613 H NT-Pro-B Natriuret Pep Total Protein 6.3 L Albumin 3.1 L Globulin 3.2 Albumin/Globulin Ratio 1.0 Prostate Specific Ag Vitamin B12 656 Folate 16.63 TSH Blood Type Antibody Screen Crossmatch Medications Administered Home Medications cod liver oil 1 cap PO QAM 05/27/19 [History Confirmed 07/03/19] ferrous sulfate 325 mg PO QAM 05/27/19 [History Confirmed 07/03/19] multivitamin 1 tab PO QAM 05/27/19 [History Confirmed 07/03/19] oxcarbazepine [Trileptal] 300 mg PO BID 05/27/19 [History Confirmed 07/03/19] docusate sodium 100 mg capsule 100 mg PO DAILY 06/05/19 [History Confirmed 07/03/19] epoetin neptali 4,000 unit/mL injection solution 4,000 unit SUBCUT MOWEFR 06/05/19 [History Confirmed 07/03/19] goserelin 3.6 mg subcutaneous implant 3.6 mg SUBCUT MONTHLY 06/05/19 [History Confirmed 07/03/19] sennosides 8.6 mg capsule 8.6 mg PO DAILY cap 06/05/19 [History Confirmed 07/03/19] Active Medications Acetaminophen (Tylenol) 650 mg PO Q4H PRN PRN Reason: Pain or Fever Stop: 08/02/19 17:37 Last Admin: 07/04/19 08:52 Dose: 650 mg Documented by: Al Hydrox/Mg Hydrox/Simethicone (Maalox) 15 ml PO Q4H PRN PRN Reason: Dyspepsia Stop: 08/02/19 17:37 Diclofenac Sodium (Voltaren 1% Top) 2 gm EXT QID [facility] Stop: 08/03/19 16:59 Docusate Sodium (Colace) 100 mg PO DAILY [facility] Stop: 08/03/19 08:59 Last Admin: 07/04/19 08:53 Dose: 100 mg Documented by: Enzalutamide (Xtandi) 4 ea PO DAILY@1999 [facility] Stop: 08/02/19 19:59 Last Admin: 07/03/19 20:24 Dose: 4 ea Documented by: Ferrous Sulfate (Feosol) 325 mg PO QAM [facility] Stop: 08/03/19 08:59 Last Admin: 07/04/19 08:53 Dose: 325 mg Documented by: Magnesium Hydroxide (Milk Of Magnesia) 30 ml PO Q12H PRN PRN Reason: Constipation Stop: 08/02/19 17:37 Morphine Sulfate (Morphine Sulfate Ir) 15 mg PO Q6H PRN PRN Reason: Pain Stop: 07/17/19 18:17 Last Admin: 07/04/19 16:09 Dose: 15 mg Documented by: Morphine Sulfate (Ms Contin) 15 mg PO Q12H JEREMÍAS Stop: 07/18/19 16:04 Multivitamins (Multivitamin Tab) 1 tab PO QAM [facility] Stop: 08/03/19 08:59 Last Admin: 07/04/19 08:53 Dose: 1 tab Documented by: Ondansetron HCl (Zofran) 4 mg IV Q6H PRN PRN Reason: Nausea Stop: 08/02/19 17:37 Last Admin: 07/03/19 21:12 Dose: 4 mg Documented by: Ondansetron HCl (Zofran Odt) 4 mg PO Q6H PRN PRN Reason: Nausea Stop: 08/03/19 09:08 Oxcarbazepine (Trileptal) 300 mg PO BID [facility] Stop: 08/02/19 20:59 Last Admin: 07/04/19 08:53 Dose: 300 mg Documented by: Polyethylene Glycol (Miralax Powder Packet) 17 gm PO DAILY PRN PRN Reason: Constipation Stop: 08/02/19 17:37 Sennosides (Senokot) 8.6 mg PO DAILY [facility] Stop: 08/03/19 08:59 Last Admin: 07/04/19 08:53 Dose: 8.6 mg Documented by: Zolpidem Tartrate (Ambien) 2.5 mg PO HS PRN PRN Reason: Sleep Stop: 08/02/19 17:37 Resident Activity Tracking Resident Involvement: Resident Care Provided Care Provided: Adult Hospital Medicine
--- NOTE | 2019-07-04 16:27 | Billing Data ---
Coding Level of Care Code 74750 Subseq Hosp Care Lvl 3
[2019-07-04] MEDS: MoRPHine SULFATE CR 15 MG TABCR PO SCH (17:43)
[2019-07-04] MEDS: DICLOFENAC SOD 1% GEL 100 GM TUBE EXT SCH ×3 (17:43→22:11)
[2019-07-04] MEDS: ENZALUTAMIDE PO SCH (19:55)
[2019-07-05] MEDS ORDERED: CALCIUM CARBONATE 500 MG CHEWABLE TAB PO PRN (01:58)
[2019-07-05] MEDS: MoRPHine SULFATE CR 15 MG TABCR PO SCH (04:10)
[2019-07-05 06:27] LABS: Hematocrit (blood only) 28.7 % (42-52); Hemoglobin 9.4 g/dL (14.0-18.0); Mean Corpuscular Hemoglobin 31.1 pg (25-34); Mean Corpuscular Hgb Conc 32.8 g/dL (32-36); Nucleated RBC # (auto) 0.53 K/uL (0-0); Nucleated RBC % (auto) 7.8 %; RDW Coefficient of Variation 19.2 % (11.5-14.5); RDW Standard Deviation 63.8 fL (36.4-46.3); Red Blood Count 3.02 M/uL (4.7-6.1); White Blood Count 6.81 K/uL (4.8-10.8)
[2019-07-05 06:46] LABS: Mean Platelet Volume 8.8 fL (7.4-10.4); Platelet Count 40 K/uL (130-400)
[2019-07-05 07:04] LABS: Albumin Level 3.5 gm/dl (3.4-5.0); BUN Creatinine Ratio 10.4 (10-20); Calcium 9.3 mg/dl (8.5-10.1); Creatinine Clr Calc Pharmacy 108.5 ml/min; Est GFR (African American) 115.1; Est GFR (Non-African American) 99.4
[2019-07-05 07:07] LABS: Bilirubin,Total 0.8 mg/dl (0.2-1); Globulin 3.6 gm/dl (2.5-4.0); Total Protein 7.1 gm/dl (6.4-8.2)
[2019-07-05 07:20] LABS: ALC (manual) 2.51 K/uL (1.2-3.4); ANC (manual) 3.28 K/uL (1.4-6.5); Lymphocytes # (manual) 2.51 K/uL (1.2-3.4); Lymphocytes % (manual) 36.8 %; Metamyelocytes % (manual) 4.4 %; Monocytes # (manual) 0.36 K/uL (0.11-0.59); Monocytes % (manual) 5.3 %; Myelocytes # (manual) 0.36 K/uL (0-0); Myelocytes % (manual) 5.3 %; Neutrophils # (manual) 3.28 K/uL (1.4-6.5); Neutrophils % (manual) 48.2 %; Polychromasia 1+; Tear Drop Cells 1+
--- NOTE | 2019-07-05 07:31 | Discharge Summary ---
Date of Service July 05, 2019 Admission HPI Per Admitting Provider Pt is a 54 y/o male with PMHx of metastatic prostate cancer to the bone.He is patient of oncologist.Pt is referred by his doctor to the ED. He is accompanied by his who reports the patient recently started chemo 1 week ago for prostate cancer. He states he went in for blood work today and it showed severe anemia, so Dr. Brewer, Oncology recommended the patient go to the ED for further evaluation.The patient reports he feels very short of breath and fatigued. He denies any fevers or blood in his urine. He denies blood in his stool but does note his stool was green/black for a few days but it was brown again yesterday.Pt takes Po iron. Guiac was negative.Pt is admitted to PCU on tele for severe anemia. Admission Exam Per Admitting Provider Constitutional: WD/WN, vitals as above well developed and + ill appearing Eyes: PERRL, conjunctivae normal, anicteric sclerae ENMT: external ear and nose normal, oropharynx normal Neck: trachea midline, no thyromegaly Respiratory: normal respiratory effort, lungs clear to auscultation Cardiovascular: Heart Sounds: normal S1, normal S2 and + murmur Vessels: d orsalis pedis pulses present Gastrointestinal (Abdomen): normal bowel sounds, soft, nontender, no hepatosplenomegaly guiac negative Musculoskeletal: no cyanosis or clubbing, extremities motor strength 5/5 Skin: pale Neurologic: patellar DTR's 2+ bilat, sensation intact Psychiatric: A+Ox3, euthymic affect Lymphatic: no cervical or axillary lymphadenopathy Principal Diagnosis Symptomatic Anemia Discharge Exam General: Alert, oriented. No acute distress, thin gentleman Skin: No noted rashes or bruises Psych: Appropriate mood and affect Neuro: No gross deficits, significant pain when back palpated. Able to move all extremities. HEENT: NC/AT Chest: Nontender to palpation. CV: RRR, Normal s1, s2. No murmurs appreciated Resp: Breath sounds clear bilaterally, no increased effort of breathing. No crackles/rhonchi/rales. Abdomen: Soft, nontender, nondistended. No guarding. No organomegaly appreciated. Extremities: No edema in lower extremities bilaterally. Discharge Data Allergies Allergy/AdvReac Type Severity Reaction Status Date / Time No Known Allergies Allergy Verified 07/03/19 13:04 Consultations 07/03/19 13:49 ED Decision to Admit Stat 07/03/19 17:38 Consult Hematology Routine Hospital Course (1) Metastatic malignant neoplasm to prostate: Mr. Castañeda is a 54yo gentleman with metastatic prostate cancer to the bone who presents with symptomatic anemia requiring a blood transfusion. Admitted on Jul 04 and discharged on Jul 05, 2019. Symptomatic Anemia -Pt with weakness, fatigue even posttransfusion -Hgb 6.9 on admission, s/p 2U blood with Hgb of 9.4 on discharge -likely secondary to metastases to bone and marrow given also lower sided WBC and thrombocytopenia -May be also a component of anemia of chronic disease -Will likely require close outpt weekly monitoring with Dr. Brewer -close PCP monitoring also strongly recommended. Back pain in the setting of bony metastases from prostate cancer -Pt with significant back pain -Likely secondary to his metastatic prostate cancer to bone -Continue long acting MS Contin 15mg BID with morphine IR 15mg q6h for breakthrough pain. -also started on topical diclofenac with qid application, continue on discharge -OMT done by Dr. Hernandez as well with instruction to family member on how to perform as needed. Prostate Cancer with bony mets -Pt follows with Dr. Brewer-appreciate recs -currently on Xtandi and Trileptal for neuropathy; continue -f/u with Dr. Gutierrez for continued treatment Constipation -Given chronic use of opioids for cancer pain, pt has some constipation -continue scheduled senna and colace -continue as needed milk of mag and miralax -continue to monitor Total Time Total Time Spent Total Time Spent (In Minutes): <30 Discharge Plan Discharge Items Patient Disposition: Home - Self-Care Reason For Visit: SEVERE ANEMIA Discharge Diagnosis: Symptomatic Anemia Activity: Per Instructions section Non-emergency contact: Primary Care Provider and Oncologist Call non-emergency contact if: your symptoms worsen and you have a fever Follow-up/Referrals: ProHussein MD [Primary Care Provider] - Diet: Regular Addtl Attending Provider Instructions: Mr. Castañeda, you were admitted because your blood count was very low, in particular your hemoglobin level and that likely contributed to making you feel very tired and weak. We transfused you 2 units of blood and raised your hemoglobin to better levels. We are discharging you home as your symptoms have improved but we recommend close followup with your primary care doctor and your oncologist Dr. Brweer. Dr. Brewer would like to see you weekly to have blood drawn so he can monitor your blood counts. For your back pain: -Take the long acting MS Contin 30mg twice a day as your baseline pain medication. -Take the morphine immediate release tablets 15mg up to 4 times a day for breakthrough pain -continue using the topical diclofenac for the back pain as well. We sent a prescription to your pharmacy. -close followup with Dr. Brewer is recommended for continued prescriptions for the pain medications. If you find that after discharge your symptoms come back or worsen (you start feeling weak, short of breath or dizzy) please return to the Emergency Room. It was a pleasure taking care of you during your stay here! Pending Studies at Discharge: No Stand-Alone Forms: [facility], Smoking Cessation Medications and DC Order Prescriptions: New Xtandi 40 mg Capsule 4 dose PO DAILY@1999 30 Days Qty: 30 RF: 0 diclofenac sodium [Voltaren] 1 % Gel 2 g EXT QID 30 Days Qty: 200 RF: 0 morphine [MS Contin] 30 mg tablet extended release 30 mg PO Q12H Qty: 60 RF: 0 morphine 15 mg tablet 15 mg PO QID PRN (Reason: pain) Qty: 120 RF: 0 Continued docusate sodium [Colace] 100 mg capsule 100 mg PO DAILY RF: 0 senna 8.6 mg capsule 8.6 mg PO DAILY RF: 0 multivitamin Tablet 1 tab PO QAM RF: 0 cod liver oil Capsule 1 cap PO QAM RF: 0 oxcarbazepine [Trileptal] 300 mg Tablet 300 mg PO BID RF: 0 ferrous sulfate 325 mg (65 mg iron) Tablet 325 mg PO QAM RF: 0 Epogen 4,000 unit/mL solution 4,000 unit subcut MOWEFR RF: 0 Zoladex 3.6 mg implant 3.6 mg SUBCUT MONTHLY RF: 0 Discharge Orders: Discharge Order (Routine); Ordered 07/05/19 Ordered By: Dc Hernandez Admission Data Admit Date/Time: 07/03/19 15:55 Attending Provider: Dc Hernandez Admit Provider: Eric Gaspar Primary Care Provider: Hussein Luevano Other Providers: Eric Gaspar ; Giorgi Brewer Other Interventions: Discharge Summary Assessment (RN) Last Done: 07/05/19 13:47 DC Date/Time DO NOT enter until pt leaves facility: 07/05/19 14:05 Supervising Physician Co-Signing Physician Notes I personally examined the patient and verified all adams points of history and exam, discussed case, and agree with decision making with Dr Pemberton. feeling better. pain seems reasonable. fatigue/dyspnea better. Vitals noted, in general he is awake and alert, pleasant no distress. HEENT normocephalic atraumatic mmm. breathing unlabored no accessory muscles good effort. skin no rashes no pallor or icterus Symptomatic anemiaimproved post transfusion. anemia seems to be hypoproliferative from marrow infiltrate of bone due to prostate cancer. likely will need periodic transfusions - hematology will follow weekly CBC Back painpredominantly due to bony replacement from his cancer, but does have some paraspinal hypertonicity. Diclofenac gel 4 times daily, taught family how to do gentle OMT like stretches. refilled his chronic pain regimen (was Rx'd 30 days ago, likely to run out shortly -- he/family had weaned MS Contin to 30mg bid (down from 60mg bid before Xtandi) and still using MSIR 15mg up to QID prn breakthrough. PDMP checked - due for refill, rather than allowing suffering until next visit - since managed here in conjunction with Dr Brewer and he is managing pain meds as outpt - refill sent. Stable for MedSurg, otherwise as above. Resident Activity Tracking Resident Involvement: Resident Care Provided Care Provided: Adult Hospital Medicine
[2019-07-05] MEDS: MULTIVITAMIN TAB PO SCH (07:50)
[2019-07-05] MEDS: FERROUS SULFATE 325 MG TAB PO SCH (07:50)
[2019-07-05] MEDS: OXcarbazepine 150 MG TABLET PO SCH (07:51)
[2019-07-05] MEDS: DOCUSATE SODIUM 100 MG CAP PO SCH (07:51)
[2019-07-05] MEDS: SENNA 8.6 MG TAB PO SCH (07:51)
[2019-07-05] MEDS: DICLOFENAC SOD 1% GEL 100 GM TUBE EXT SCH (11:16)
--- NOTE | 2019-07-05 18:48 | Billing Data ---
Coding Level of Care Code D/C Day Management <30 mins
== END 2019-07-05 14:05 | disposition home or self-care (01) | DRG 543 ==
LOC: ED 11:47 → 2S 15:55 → SUATTDRO 15:55 → 2S 17:17 → 4W 07-04 16:03
DX: C79.51 Secondary malignant neoplasm of bone; T40.2X5A Adverse effect of other opioids, initial encounter; Z80.8 Family history of malignant neoplasm of other organs or systems; Z87.891 Personal history of nicotine dependence; D61.82 Myelophthisis; Z85.46 Personal history of malignant neoplasm of prostate; Z79.899 Other long term (current) drug therapy; D63.0 Anemia in neoplastic disease; M54.9 Dorsalgia, unspecified; R94.31 Abnormal electrocardiogram [ECG] [EKG]; K59.03 Drug induced constipation; G40.909 Epilepsy, unspecified, not intractable, without status epilepticus; D61.818 Other pancytopenia; G89.3 Neoplasm related pain (acute) (chronic); Z90.79 Acquired absence of other genital organ(s)

== ENCOUNTER 2019-08-16 07:34 | Inpatient (IN) ==
[2019-08-16] MEDS ORDERED: SODIUM CHLORIDE 0.9% 500 ML IV ONE (08:01)
--- NOTE | 2019-08-16 08:13 | Emergency Department Note ---
Entered by Guanakito Walters acting as a scribe for History of Present Illness General Chief complaint: Weakness Stated complaint: weakness Time Seen by Provider: 08/16/19 07:45 Source: patient Limitations: no limitations History of Present Illness Onset (ago): day(s) (yesterday) Location: head Pain Consistency: + constant Quality: + constant Associated symptoms: + denies other symptoms (burning with urination, blood in urine, back pain), + nausea/vomiting and + other (tongue goes to the right, ) Treatments prior to arrival: other (morphine) The patient is a 54 year old male who presents to the Emergency Room with complaints of constant weakness starting yesterday. The patient states he has prostate cancer that has metastasized to his bones including his ribs. He notes he is currently getting oral chemotherapy and states he got radiation yesterday. His sister states the patient's tongue goes to the right when he sticks it out. The sister states that started a week ago and notes he has been getting treated for that. He states he spoke to his oncologist, Dr. Brewer, yesterday and was instructed to go to the ED. He states he has been vomiting. He notes he has not been able to walk properly and needed help walking to the bathroom. He states he has not been able to control his bladder since this morning. He states he has lower back pain and upper back pain. 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 The patient denies having burning with urination, blood in his urine, chest pain, and recent falls. He states he might have a fever but has not checked. 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 Home Medications Home Medications Medication Instructions Recorded Confirmed Type multivitamin 1 tab PO QAM 05/27/19 08/16/19 History oxcarbazepine [Trileptal] 300 mg PO BID 05/27/19 08/16/19 History ondansetron 8 mg disintegrating 8 mg PO PRN PRN tab 07/07/19 08/16/19 History tablet polyethylene glycol 3350 17 17 gm PO DAILY PRN 07/07/19 08/16/19 History gram/dose oral powder Xtandi 160 mg PO DAILY@199907/30/19 08/16/19 History potassium chloride 10 meq PO DAILY #30 tab 07/31/19 08/16/19 Rx goserelin [Zoladex] 3.6 mg SUBCUT MONTHLY 08/16/19 08/16/19 History morphine 15 mg PO QID PRN 08/16/19 08/16/19 History morphine [MS Contin] 30 mg PO Q12H PRN 08/16/19 08/16/19 History prochlorperazine maleate 10 mg PO Q6H PRN 08/16/19 08/16/19 History Allergies Allergy/AdvReac Type Severity Reaction Status Date / Time No Known Allergies Allergy Verified 08/16/19 08:12 Past Med/Surg History Medical History Anemia (Acute) S/P blood transfusion of 5 UPRBCs 05/27/19 Chronic pain (Chronic) Forgetfulness (Chronic) Pt has poor recall H/O transfusion of packed red blood cells (Resolved) 05/27/19 Hypokalemia Prostate cancer (Chronic) 09/15/16 Prostate cancer metastatic to bone (Chronic) Prostate cancer metastatic to bone Seizure disorder (Chronic) Surgical History H/O prostatectomy (Resolved) 12/27/16 History of testicular surgery (Resolved) For undescended testes S/P radiation therapy (Resolved) Status post chemotherapy (Resolved) Family History Mother , at 75yo Multiple myeloma Father No problems noted. Brother No problems noted. Brother No problems noted. Brother No problems noted. Sister Hypertension Sister Bipolar disorder Social History Preferred Language: Spanish Communication Ability: Effective Visual Impairment: No Limitations Hearing Ability: Normal Chief Unit Forester Required: No Beliefs That Will Affect Care: None marital status: Current Living Situation: Family current occupational status: employed current occupation: Works in [place] Other Information That Helps Us Care for You: No Feels Safe at Home: Yes Safety Concerns: Feels Safe At This Time Smoking Status: Former smoker Tobacco Type: cigarettes ; Cigarettes Per Day: Quit in 2017;1 PPD x 29yrs ; Second Hand Exposure: No ; Hx Alcohol Use: Yes Hx Substance Use: No caffeine: No during the past year weight has: decreased > 10 lbs Review of Systems See HPI for pertinent positives & negatives. and A total of 10 systems reviewed and were otherwise negative Physical Exam Vital Signs Vital Signs - 24 hr 08/16/19 07:45 08/16/19 07:56 08/16/19 08:00 Temperature 37.3 C Temperature Source Oral Pulse Rate 82 89 84 Pulse Rate from SpO2 Sensor 81 83 Pulse Rhythm Regular Pulse Strength Normal Respiratory Rate 20 20 23 Respiratory Effort / Characteristics Non-Labored Spontaneous Respiratory Depth Normal Respiratory Pattern Regular Blood Pressure 134/71 128/70 133/72 Blood Pressure Mean 95 89 91 Blood Pressure Position Lying Pulse Oximetry 93 95 96 Oxygen Delivery Method Room Air Sepsis Recent Fever Within 48 Hours No Sepsis Action Taken by Nursing No Action Required 08/16/19 08:01 08/16/19 08:15 08/16/19 08:30 Temperature Temperature Source Pulse Rate 82 84 87 Pulse Rate from SpO2 Sensor 82 84 87 Pulse Rhythm Pulse Strength Respiratory Rate 24 22 25 H Respiratory Effort / Characteristics Respiratory Depth Respiratory Pattern Blood Pressure Blood Pressure Mean Blood Pressure Position Pulse Oximetry 96 92 95 Oxygen Delivery Method Room Air Sepsis Recent Fever Within 48 Hours Sepsis Action Taken by Nursing 08/16/19 08:45 08/16/19 08:47 08/16/19 09:00 Temperature Temperature Source Pulse Rate 78 78 80 Pulse Rate from SpO2 Sensor 78 78 79 Pulse Rhythm Pulse Strength Respiratory Rate 21 13 21 Respiratory Effort / Characteristics Respiratory Depth Respiratory Pattern Blood Pressure 123/66 132/71 Blood Pressure Mean 80 95 Blood Pressure Position Pulse Oximetry 98 94 98 Oxygen Delivery Method Sepsis Recent Fever Within 48 Hours Sepsis Action Taken by Nursing 08/16/19 09:30 Temperature Temperature Source Pulse Rate 83 Pulse Rate from SpO2 Sensor 83 Pulse Rhythm Pulse Strength Respiratory Rate 22 Respiratory Effort / Characteristics Respiratory Depth Respiratory Pattern Blood Pressure Blood Pressure Mean Blood Pressure Position Pulse Oximetry 98 Oxygen Delivery Method Sepsis Recent Fever Within 48 Hours Sepsis Action Taken by Nursing General: Chronically-ill appearing middle-aged male in no acute distress. Answers questions appropriately. Normal speech. HEENT: Normal cephalic atraumatic. Pupils are equal round and reactive to light. Extraocular movements are intact. Oropharynx is pink with moist mucous membranes. No swelling of the mouth lips or tongue. 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 Neck: Supple with a midline trachea. No meningeal signs or stiffness, no JVD or bruits. No Stridor. Chest: Clear to auscultation bilaterally. No wheezes or rhonchi. No increased work of breathing. Heart: regular rate and rhythm. Abdomen: Soft nontender, nondistended without rebound guarding or rigidity. Extremities: No cyanosis clubbing or edema. No calf tenderness or asymmetry. Normal flexion and extension at the ankle. Normal movement at the feet. Lower extremities are weak bilaterally when trying to raise either leg. Intact sensation to light touch to either leg. Intact patellar reflexes. Spine/Back. Non tender to palpation. No CVA tenderness Skin: Good turgor without rashes. Neurologic exam: Cranial nerves two through 12 are intact. Motor and sensation are intact and symmetrical throughout. Course Course 0747: The patient was evaluated in room B7, and a complete history and physical examination were performed. 0859: I spoke with Dr. Brewer. He agrees with giving the patient platelets and admitting the patient. He states we do not need to give the patient irradiated blood. 0906: I discussed the patient's case with Dr. Rojas - [facility] Hospitalist. He will evaluate the patient for further management. Administered Medications Morphine Sulfate (Ms Contin) 30 mg PO Q12 JEREMÍAS Stop: 08/30/19 12:29 Last Admin: 08/16/19 14:07 Dose: 30 mg Documented by: [id number] Polyethylene Glycol (Miralax Powder Packet) 17 gm PO BID JEREMÍAS Stop: 09/15/19 12:13 Last Admin: 08/16/19 14:07 Dose: 17 gm Documented by: [id number] Discontinued Medications Sodium Chloride (Nss) 500 mls @ 999 mls/hr IV .Q31M ONE Stop: 08/16/19 08:31 Last Infusion: 08/16/19 09:52 Dose: 0 mls/hr Documented by: [id number] Admin: 08/16/19 08:48 Dose: 999 mls/hr Documented by: [id number] Morphine Sulfate (Morphine Sulfate) 4 mg IV NOW STA Stop: 08/16/19 08:33 Last Admin: 08/16/19 08:48 Dose: 4 mg Documented by: [id number] Critical Care Time Critical Care Time: Yes Total Critical Care Time: 40 I have personally spent greater than 40 minutes of critical care time in the direct management of this patient. This includes bedside care, interpretation of diagnostic studies, and testing, discussion with consultants, patient, and family members, and other required patient management activities. This 40 minutes is in excess of all separately billable procedures. Medical Decision Making Differential Diagnosis Differential Diagnosis includes but is not limited to infection, anemia, intracranial process, spinal process, and complication due to metastatic prostate cancer. Medical Records Attestation: I reviewed the patient's medical records. Home Medications Current Medication List: was personally reviewed by me Laboratory Data Attestation: I reviewed the patient's lab results. Result diagrams: 08/16/19 12:35 08/16/19 08:18 Lab Results 08/16/19 08/16/19 08/16/19 Range/Units 08:18 08:18 08:18 WBC 4.47 L (4.8-10.8) K/uL RBC 1.56 L (4.7-6.1) M/uL Hgb 5.1 L* (14.0-18.0) g/dL Hct 15.9 L* (42-52) % MCV 101.9 H (80-100) fL MCH 32.7 (25-34) pg MCHC 32.1 (32-36) g/dL RDW Std Deviation 71.6 H (36.4-46.3) fL RDW Coeff of Douglas 20.2 H (11.5-14.5) % Plt Count 23 L* (130-400) K/uL MPV 9.8 (7.4-10.4) fL Absolute Nucleated RBC 0.65 H (0-0) K/uL Nucleated RBC % (auto) 14.7 % Neutrophils % (Manual) 69.0 % Lymphocytes % (Manual) 13.3 % Monocytes % (Manual) 7.1 % Basophils % (Manual) 0.9 % Metamyelocytes % (Man) 4.4 % Myelocytes % (Man) 5.3 % Neutrophils # (Manual) 3.08 (1.4-6.5) K/uL Total Absolute Neuts 3.08 (1.4-6.5) K/uL Lymphocytes # (Manual) 0.59 L (1.2-3.4) K/uL Total Abs Lymphocytes 0.59 L (1.2-3.4) K/uL Monocytes # (Manual) 0.32 (0.11-0.59) K/uL Basophils # (Manual) 0.04 (0-0.2) K/uL Metamyelocytes # (Man) 0.20 H (0-0) K/uL Myelocytes # (Manual) 0.24 H (0-0) K/uL Platelet Estimate SIGNIFIC DECREASED (Normal) Anisocytosis Present Tear Drop Cells 2+ PT 11.8 (9.0-12.0) Seconds INR 1.2 H (0.9-1.1) APTT 23.1 (21.0-31.0) Seconds PTT Ratio 0.9 Sodium 137 (136-145) mmol/L Potassium 2.9 L (3.5-5.1) mmol/L Chloride 97 L (98-107) mmol/L Carbon Dioxide 34 H (21-32) mmol/L Anion Gap 6.0 (3-11) BUN 21 H (7-18) mg/dl Creatinine 0.95 (0.6-1.4) mg/dl Est Cr Clr Drug Dosing 86.6 ml/min Est GFR ( Amer) 103.3 Est GFR (Non-Af Amer) 89.1 BUN/Creatinine Ratio 22.5 H (10-20) Glucose 117 H (70-99) mg/dl Lactate (0.4-2.0) mmol/L Calcium 9.4 (8.5-10.1) mg/dl Magnesium 2.2 (1.8-2.4) mg/dl Total Bilirubin 1.7 H (0.2-1) mg/dl AST 44 H (15-37) U/L ALT 43 (12-78) U/L Alkaline Phosphatase 318 H (45-117) U/L Troponin I < 0.015 (0-0.045) ng/ml Total Protein 6.6 (6.4-8.2) gm/dl Albumin 3.4 (3.4-5.0) gm/dl Globulin 3.2 (2.5-4.0) gm/dl Albumin/Globulin Ratio 1.1 (0.9-2) Prostate Specific Ag (0-4) ng/ml Blood Type Antibody Screen Crossmatch 08/16/19 08/16/19 08/16/19 Range/Units 08:18 08:18 08:18 WBC (4.8-10.8) K/uL RBC (4.7-6.1) M/uL Hgb (14.0-18.0) g/dL Hct (42-52) % MCV (80-100) fL MCH (25-34) pg MCHC (32-36) g/dL RDW Std Deviation (36.4-46.3) fL RDW Coeff of Douglas (11.5-14.5) % Plt Count (130-400) K/uL MPV (7.4-10.4) fL Absolute Nucleated RBC (0-0) K/uL Nucleated RBC % (auto) % Neutrophils % (Manual) % Lymphocytes % (Manual) % Monocytes % (Manual) % Basophils % (Manual) % Metamyelocytes % (Man) % Myelocytes % (Man) % Neutrophils # (Manual) (1.4-6.5) K/uL Total Absolute Neuts (1.4-6.5) K/uL Lymphocytes # (Manual) (1.2-3.4) K/uL Total Abs Lymphocytes (1.2-3.4) K/uL Monocytes # (Manual) (0.11-0.59) K/uL Basophils # (Manual) (0-0.2) K/uL Metamyelocytes # (Man) (0-0) K/uL Myelocytes # (Manual) (0-0) K/uL Platelet Estimate (Normal) Anisocytosis Tear Drop Cells PT (9.0-12.0) Seconds INR (0.9-1.1) APTT (21.0-31.0) Seconds PTT Ratio Sodium (136-145) mmol/L Potassium (3.5-5.1) mmol/L Chloride (98-107) mmol/L Carbon Dioxide (21-32) mmol/L Anion Gap (3-11) BUN (7-18) mg/dl Creatinine (0.6-1.4) mg/dl Est Cr Clr Drug Dosing ml/min Est GFR ( Amer) Est GFR (Non-Af Amer) BUN/Creatinine Ratio (10-20) Glucose (70-99) mg/dl Lactate 1.1 (0.4-2.0) mmol/L Calcium (8.5-10.1) mg/dl Magnesium (1.8-2.4) mg/dl Total Bilirubin (0.2-1) mg/dl AST (15-37) U/L ALT (12-78) U/L Alkaline Phosphatase (45-117) U/L Troponin I (0-0.045) ng/ml Total Protein (6.4-8.2) gm/dl Albumin (3.4-5.0) gm/dl Globulin (2.5-4.0) gm/dl Albumin/Globulin Ratio (0.9-2) Prostate Specific Ag 547.000 H (0-4) ng/ml Blood Type O Positive Antibody Screen NEGATIVE Crossmatch See Detail Imaging Data Radiologist's Impression: Radiology results as stated below per my review and the radiologist's interpretation: XR chest 1V portable CLINICAL HISTORY: SEPSIS COMPARISON STUDY: 07/30/2019 FINDINGS: The heart is borderline enlarged. Since the prior study, the patient has developed a right pleural effusion with associated right basilar atelectasis/consolidation.[There is evidence for multifocal skeletal metastasis. There is no failure. The left lung is clear. IMPRESSION: 1. Interval development of a small right pleural effusion with associated right basilar atelectasis/consolidation 2. Multifocal skeletal metastasis ACT 112: Negative or not required by law. Electronically signed by: Poncho Villatoro M.D. 08/16/2019 9:01 AM ECG Data Attestation: I personally reviewed and interpreted this ECG as follows: Indication: + weakness Rate (beats per minute): 80 Rhythm: + normal sinus ECG Intervals/blocks: + Prolonged QT (QT is 588) ECG ST segments: no ST depression and no ST elevation Comparison ECG Date: no prior available Blood Pressure Blood Pressure Findings: Elevated blood pressure Blood Pressure Disposition: further management by hospitalist [facility] Narrative This patient comes in as described above. He has a very complex medical history with metastatic prostate cancer. He comes in after having increasing weakness in his legs since yesterday. He has not fallen. He does not believe that he has had any fever. he does have some chronic short-term memory problems as well which make it a little difficult to assess although his fills in the information. He does appear to be bilaterally weak in his legs. I did do a CAT scan of his head as well as his back to rule out any structural problems causing this. He is also been anemic in the past and we did order blood work including blood cultures and type and screen. I also wanted to a sepsis type work-up and cardiac work-up. He could have electrolyte abnormalities as well. He was given IV hydration. he is apparently has been vomiting at home as well and he could be dehydrated. He did request some pain medication was given morphine 4 mg IV. He does take p.o. morphine at home. His hemoglobin came back markedly low at 5.1 his platelets are also very low at 23,000 at present there is no evidence of active bleeding. I did consent him for blood and platelet transfusions and the patient and his father both freely consented both verbally and in writing. The signed consent is on the chart. I explained the risks and the benefits. I did discuss case with Dr. Brewer who is his oncologist and he agrees with the plan. His potassium is also a little bit low and that will need to be repleted in the hospital as well. His chest x-ray does show bony mets and a new pleural effusion. I did also consult the [facility] Hospitalist to see the patient in the ER. CAT scan of the head was unremarkable for any acute findings. CAT scan abdomen does not show any acute findings either. I have consulted Dr. Rojas to see the patient in the ER for admission and further transfusions Impression & Plan Weakness, Prostate cancer metastatic to bone, Anemia, Thrombocytopenia Discharge Plan Visit Data *Final* Discharge Date/Time: 08/16/19 11:11 Chief Complaint: Weakness Stated Complaint: weakness ED Provider: Doug Bhakta Discharge Problem: Weakness, Prostate cancer metastatic to bone, Anemia, Thrombocytopenia Patient Disposition: Admitted As Inpatient Discharge Instructions Interventions: ED Discharge Assessment Last Done: 08/16/19 11:11 Discharge Problem: Anemia Qualifiers: Anemia type: unspecified type Qualified Code(s): D64.9 - Anemia, unspecified The scribe's documentation has been prepared under my direction and personally reviewed by me in its entirety. I confirm that the note above accurately reflects all work, treatment, procedures, and medical decision making performed by me.
[2019-08-16] MEDS ORDERED: MoRPHine SULFATE 4 MG/ML 1 ML CARP\\VIAL IV STA (08:32)
[2019-08-16 08:48] LABS: Alanine Aminotransferase 43 U/L (12-78); Albumin Level 3.4 gm/dl (3.4-5.0); Aspartate Aminotransferase 44 U/L (15-37); BUN Creatinine Ratio 22.5 (10-20); Blood Urea Nitrogen 21 mg/dl (7-18); Calcium 9.4 mg/dl (8.5-10.1); Carbon Dioxide 34 mmol/L (21-32); Chloride 97 mmol/L (98-107); Creatinine Clr Calc Pharmacy 86.6 ml/min; Est GFR (African American) 103.3; Est GFR (Non-African American) 89.1; Glucose 117 mg/dl (70-99); Magnesium 2.2 mg/dl (1.8-2.4); Potassium 2.9 mmol/L (3.5-5.1); Sodium 137 mmol/L (136-145)
[2019-08-16 08:50] LABS: Mean Corpuscular Hgb Conc 32.1 g/dL (32-36); Mean Platelet Volume 9.8 fL (7.4-10.4); Nucleated RBC # (auto) 0.65 K/uL (0-0); Nucleated RBC % (auto) 14.7 %; Platelet Count 23 K/uL (130-400)
[2019-08-16 08:51] LABS: Hematocrit (blood only) 15.9 % (42-52); Hemoglobin 5.1 g/dL (14.0-18.0); Mean Corpuscular Hemoglobin 32.7 pg (25-34); Mean Corpuscular Volume 101.9 fL (80-100); RDW Coefficient of Variation 20.2 % (11.5-14.5); RDW Standard Deviation 71.6 fL (36.4-46.3); Red Blood Count 1.56 M/uL (4.7-6.1); White Blood Count 4.47 K/uL (4.8-10.8)
[2019-08-16 08:52] LABS: INR 1.2 (0.9-1.1); Partial Thromboplastin Ratio 0.9; Partial Thromboplastin Time 23.1 Seconds (21.0-31.0); Prothrombin Time 11.8 Seconds (9.0-12.0)
[2019-08-16 08:53] LABS: Albumin Globulin Ratio 1.1 (0.9-2); Alkaline Phosphatase 318 U/L (45-117); Bilirubin,Total 1.7 mg/dl (0.2-1); Globulin 3.2 gm/dl (2.5-4.0); Total Protein 6.6 gm/dl (6.4-8.2); Troponin I < 0.015 ng/ml (0-0.045)
[2019-08-16 08:58] LABS: ALC (manual) 0.59 K/uL (1.2-3.4); ANC (manual) 3.08 K/uL (1.4-6.5); Anisocytosis Present; Basophils # (manual) 0.04 K/uL (0-0.2); Basophils % (manual) 0.9 %; Lymphocytes # (manual) 0.59 K/uL (1.2-3.4); Lymphocytes % (manual) 13.3 %; Metamyelocytes % (manual) 4.4 %; Monocytes # (manual) 0.32 K/uL (0.11-0.59); Monocytes % (manual) 7.1 %; Myelocytes # (manual) 0.24 K/uL (0-0); Myelocytes % (manual) 5.3 %; Neutrophils # (manual) 3.08 K/uL (1.4-6.5); Platelet Estimate SIGNIFIC DECREASED (Normal); Tear Drop Cells 2+
[2019-08-16] MEDS ORDERED: SODIUM CHLORIDE 0.9% 250 ML IV PRN ×3 (09:01→14:36)
--- NOTE | 2019-08-16 09:02 | XRay Report ---
XR chest 1V portable CLINICAL HISTORY: SEPSIS COMPARISON STUDY: 07/30/2019 FINDINGS: The heart is borderline enlarged. Since the prior study, the patient has developed a right pleural effusion with associated right basilar atelectasis/consolidation.[There is evidence for multi focal skeletal metastasis. There is no failure. The left lung is clear. IMPRESSION: 1. Interval development of a small right pleural effusion with associated right basilar atelectasis/c onsolidation 2. Multifocal skeletal metastasis ACT 112: Negative or not required by law. Electronically signed by: Poncho Villatoro M.D. 08/16/2019 9:01 AM
--- NOTE | 2019-08-16 09:25 | CT Scan Report ---
CT head/brain wo con CLINICAL HISTORY: Weakness, metastatic prostate carcinoma COMPARISON STUDY: 07/30/2019 TECHNIQUE: Axial CT of the brain is performed from the vertex to the skull base. IV contrast was not administered for this examination. A dose lowering technique was utilized adhering to the principles of ALARA. CT DOSE: 537.48 mGy.cm FINDINGS: No intra or extra-axial mass lesions are visualized. There is no CT evidence of acute cortical infarc tion. There is no evidence of midline shift. There is no acute hemorrhage. No calvarial fractures ar e visualized. There are minimal white matter hypodensities likely on a small vessel basis. There is no evidence of pathologic ventricular dilatation. There is bilateral sphenoid sinus mucosal thickening. There is a right mastoid effusion. IMPRESSION: 1. No acute intracranial findings 2. Paranasal sinus inflammatory changes with bilateral sphenoid sinus mucosal thickening in a right m astoid effusion ACT 112: Negative or not required by law. Electronically signed by: Poncho Villatoro M.D. 08/16/2019 9:24 AM
--- NOTE | 2019-08-16 09:33 | CT Scan Report ---
CT lumbar spine wo con CT DOSE: 606.40 mGy.cm CLINICAL HISTORY: Leg weakness. Metastatic prostate carcinoma. TECHNIQUE: Helical images were acquired in transverse plane. Reformatted sagittal and coronal images were reviewed. A dose lowering technique was utilized adhering to the principles of ALARA. CONTRAST: No contrast was administered COMPARISON STUDY: May 2019 FINDINGS: L1-2 level: There is a mild circumferential disc bulge. There is minor spinal canal narrowing. There is no significant foraminal stenosis L2-3 level: There is a mild circumferential disc bulge. There is minor spinal canal narrowing. There is no significant foraminal stenosis L3-4 level: There is a mild circumferential disc bulge. There is mild spinal canal narrowing. There i s no significant foraminal stenosis L4-5 level: There is a circumferential disc bulge present with mild spinal canal narrowing. There is no significant foraminal stenosis L5-S1 level: There is a mild circumferential disc bulge. There is no significant spinal or foraminal stenosis. No acute fractures are visualized. There are no subluxations. There are several left renal calculi. There is evidence of progressive blastic skeletal metastasis. IMPRESSION: 1. Progressive skeletal metastasis 2. No acute fractures or subluxations 3. Mild multilevel spondylytic changes with multilevel disc bulges and mild spinal canal narrowing. No evidence of high-grade spinal stenosis 4. Left-sided nephrolithiasis ACT 112: Negative or not required by law. Electronically signed by: Poncho Villatoro M.D. 08/16/2019 9:31 AM
[2019-08-16] MEDS ORDERED: PROCHLORPERAZINE MALEATE 10 MG TAB PO PRN (12:14)
[2019-08-16] MEDS ORDERED: ACETAMINOPHEN 325 MG TAB PO PRN (12:14)
[2019-08-16] MEDS ORDERED: ONDANSETRON INJ 2 MG/ML 2 ML VIAL IV PRN (12:14)
[2019-08-16] MEDS ORDERED: ondansetron HCL 8 MG in DEXTROSE 5% 50 ML IV PRN (12:21)
[2019-08-16 13:03] LABS: Hematocrit (blood only) 15.1 % (42-52); Hemoglobin 4.7 g/dL (14.0-18.0); Mean Corpuscular Hgb Conc 31.1 g/dL (32-36); Mean Corpuscular Volume 102.7 fL (80-100); Mean Platelet Volume 8.9 fL (7.4-10.4); Nucleated RBC # (auto) 0.34 K/uL (0-0); Nucleated RBC % (auto) 9.4 %; Platelet Count 42 K/uL (130-400); RDW Coefficient of Variation 20.3 % (11.5-14.5); RDW Standard Deviation 72.9 fL (36.4-46.3); Red Blood Count 1.47 M/uL (4.7-6.1); White Blood Count 3.65 K/uL (4.8-10.8)
[2019-08-16 13:15] LABS: ALC (manual) 0.74 K/uL (1.2-3.4); ANC (manual) 2.45 K/uL (1.4-6.5); Anisocytosis Present; Eosinophils # (manual) 0.07 K/uL (0-0.5); Eosinophils % (manual) 1.8 %; Lymphocytes # (manual) 0.74 K/uL (1.2-3.4); Lymphocytes % (manual) 20.2 %; Metamyelocytes # (manual) 0.07 K/uL (0-0); Metamyelocytes % (manual) 1.8 %; Monocytes # (manual) 0.23 K/uL (0.11-0.59); Monocytes % (manual) 6.4 %; Myelocytes % (manual) 2.8 %; Neutrophils # (manual) 2.45 K/uL (1.4-6.5); Polychromasia 1+; Tear Drop Cells 2+
--- NOTE | 2019-08-16 14:04 | Oncology Consultation ---
Date of Consultation August 16, 2019 Assessment & Plan (1) Pancytopenia: He is pancytopenic. Based on the appearance of his differential and his overall clinical situation, I suspect this is due to marrow involvement from his prostate cancer. His hemoglobin is quite low, but only down about 2 grams from his baseline. He does not report any obvious bleeding but we should investigate for occult bleeding. I would also transfuse him. His platelets are improved and he probably does not need more at this point. Present on Admission?: Yes (2) Prostate cancer metastatic to bone: Mr. Castañeda's scans and PSA are worse, as are his counts. Overall, I strongly suspect his disease is progressing. I was not optimistic that we would see much of a response to the Xtandi, given his lengthy treatment with Zytiga. H owever, we were unable to get him approved for chemotherapy and it was our best remaining option. He theoretically has other treatment options, but they are less likely to be helpful than even the Xtandi was and, given the rate of his clinical decline, I worry that he may relatively soon. We should consult palliative care. His stated goal is to return to [place] if possible. We should make every effort to accommodate this wish, if possible. Present on Admission?: Yes History of Present Illness Reason for Consultation: Pancytopenia Metastatic prostate cancer Attending Physician: Maxwell Rojas MD History of Present Illness Mr. Castañeda is a 54 year old man well known to me. He has a history of widely metastatic prostate cancer. He was treated for several years in [place] and came to meet me this Fall to investigate treatment options here. He had markedly progressive disease and a high PSA when I first met him. He's undergone palliative RT to several sites and eventually started Xtandi after we were able to get him free drug from the drug company. He has been pancytopenic all along, with a presumptive diagnosis of marrow involvement from cancer. His counts did get a bit better from treatment and his PSA seemed to fall. However, he never really stabilized clinically. He's had consistent, worsening pain. He's also had issues with nausea, constipation, and fatigue. He was feeling weak yesterday, as though he couldn't walk. He came to the ER and had a hemoglobin of 5 with platelets of 20K. He was given some platelets overnight and his count improved. However, he has not yet received any PRBCs. He denied any obvious bleeding. He tells me he's been taking his Xtandi consistently every day. He has had some nausea, related to constipation, and that sometimes interferes with his taking the pills. Still, he says he takes them every day. Allergies Allergy/AdvReac Type Severity Reaction Status Date / Time No Known Allergies Allergy Verified 08/16/19 08:12 Home Medications Home Medications Medication Instructions Recorded Confirmed Type multivitamin 1 tab PO QAM 05/27/19 08/16/19 History oxcarbazepine [Trileptal] 300 mg PO BID 05/27/19 08/16/19 History ondansetron 8 mg disintegrating 8 mg PO PRN PRN tab 07/07/19 08/16/19 History tablet polyethylene glycol 3350 17 17 gm PO DAILY PRN 07/07/19 08/16/19 History gram/dose oral powder Xtandi 160 mg PO DAILY@199907/30/19 08/16/19 History potassium chloride 10 meq PO DAILY #30 tab 07/31/19 08/16/19 Rx goserelin [Zoladex] 3.6 mg SUBCUT MONTHLY 08/16/19 08/16/19 History morphine 15 mg PO QID PRN 08/16/19 08/16/19 History morphine [MS Contin] 30 mg PO Q12H PRN 08/16/19 08/16/19 History prochlorperazine maleate 10 mg PO Q6H PRN 08/16/19 08/16/19 History Patient History Medical History Anemia (Acute) S/P blood transfusion of 5 UPRBCs 05/27/19 Chronic pain (Chronic) Forgetfulness (Chronic) Pt has poor recall H/O transfusion of packed red blood cells (Resolved) 05/27/19 Hypokalemia Prostate cancer (Chronic) 09/15/16 Prostate cancer metastatic to bone (Chronic) Prostate cancer metastatic to bone Seizure disorder (Chronic) Surgical History H/O prostatectomy (Resolved) 12/27/16 History of testicular surgery (Resolved) For undescended testes S/P radiation therapy (Resolved) Status post chemotherapy (Resolved) Family History Mother , at 75yo Multiple myeloma Father No problems noted. Brother No problems noted. Brother No problems noted. Brother No problems noted. Sister Hypertension Sister Bipolar disorder Social History Preferred Language: Wallisian Communication Ability: Effective Visual Impairment: No Limitations Hearing Ability: Normal Er Rn Required: No Beliefs That Will Affect Care: None marital status: Current Living Situation: Family current occupational status: employed current occupation: Works in [employer] Other Information That Helps Us Care for You: No Feels Safe at Home: Yes Safety Concerns: Feels Safe At This Time Smoking Status: Former smoker Tobacco Type: cigarettes ; Cigarettes Per Day: Quit in 2017;1 PPD x 29yrs ; Second Hand Exposure: No ; Hx Alcohol Use: Yes Hx Substance Use: No caffeine: No during the past year weight has: decreased > 10 lbs Review of Systems Review of Systems: See HPI for pertinent positives and negatives. Otherwise, ROS was negative. Physical Exam Constitutional: + thin and comfortable; no acute distress ENMT: external ear and nose normal, oropharynx normal Respiratory: normal respiratory effort, lungs clear to auscultation Cardiovascular: RRR, no murmur, no edema Gastrointestinal (Abdomen): Inspection/Auscultation: normal bowel sounds; abdomen not distended Percussion/Palpation: abdomen soft; abdomen nontender Skin: no rashes, warm and dry Psychiatric: A+Ox3, euthymic affect Results & Data Vital Signs (Past 12 Hours) Vital Signs Temp Pulse Pulse Resp BP BP Pulse Ox 08/16/19 11:45 36.9 C 86 97 H 16 136/60 94 08/16/19 11:13 37.3 C 83 24 142/74 H 99 08/16/19 11:00 82 16 139/71 97 08/16/19 10:45 82 16 137/72 97 08/16/19 10:43 37.3 C 84 21 137/72 100 08/16/19 10:30 81 15 139/75 93 08/16/19 10:15 84 18 141/73 H 99 08/16/19 10:13 37.0 C 81 22 141/73 H 100 08/16/19 10:00 81 18 136/70 92 01/12/20 09:58 37.2 C 84 24 136/70 97 08/16/19 09:45 82 22 136/71 99 08/16/19 09:37 36.7 C 81 23 129/66 94 08/16/19 09:30 83 22 98 08/16/19 09:00 80 21 132/71 98 08/16/19 08:47 78 13 123/66 94 08/16/19 08:45 78 21 98 08/16/19 08:30 87 25 H 95 08/16/19 08:15 84 22 92 08/16/19 08:01 82 24 96 08/16/19 08:00 84 23 133/72 96 08/16/19 07:56 37.3 C 89 20 128/70 95 08/16/19 07:45 82 20 134/71 93 Laboratory Results Abnormal lab results 08/16/19 08/16/19 08/16/19 Range/Units 08:18 08:18 08:18 WBC 4.47 L (4.8-10.8) K/uL RBC 1.56 L (4.7-6.1) M/uL Hgb 5.1 L* (14.0-18.0) g/dL Hct 15.9 L* (42-52) % MCV 101.9 H (80-100) fL MCHC (32-36) g/dL RDW Std Deviation 71.6 H (36.4-46.3) fL RDW Coeff of Douglas 20.2 H (11.5-14.5) % Plt Count 23 L* (130-400) K/uL Absolute Nucleated RBC 0.65 H (0-0) K/uL Lymphocytes # (Manual) 0.59 L (1.2-3.4) K/uL Total Abs Lymphocytes 0.59 L (1.2-3.4) K/uL Metamyelocytes # (Man) 0.20 H (0-0) K/uL Myelocytes # (Manual) 0.24 H (0-0) K/uL INR 1.2 H (0.9-1.1) Potassium 2.9 L (3.5-5.1) mmol/L Chloride 97 L (98-107) mmol/L Carbon Dioxide 34 H (21-32) mmol/L BUN 21 H (7-18) mg/dl BUN/Creatinine Ratio 22.5 H (10-20) Glucose 117 H (70-99) mg/dl Total Bilirubin 1.7 H (0.2-1) mg/dl AST 44 H (15-37) U/L Alkaline Phosphatase 318 H (45-117) U/L Prostate Specific Ag (0-4) ng/ml Crossmatch 08/16/19 08/16/19 08/16/19 Range/Units 08:18 08:18 12:35 WBC 3.65 L (4.8-10.8) K/uL RBC 1.47 L (4.7-6.1) M/uL Hgb 4.7 L* (14.0-18.0) g/dL Hct 15.1 L* (42-52) % MCV 102.7 H (80-100) fL MCHC 31.1 L (32-36) g/dL RDW Std Deviation 72.9 H (36.4-46.3) fL RDW Coeff of Douglas 20.3 H (11.5-14.5) % Plt Count 42 L D (130-400) K/uL Absolute Nucleated RBC 0.34 H (0-0) K/uL Lymphocytes # (Manual) 0.74 L (1.2-3.4) K/uL Total Abs Lymphocytes 0.74 L (1.2-3.4) K/uL Metamyelocytes # (Man) 0.07 H (0-0) K/uL Myelocytes # (Manual) 0.10 H (0-0) K/uL INR (0.9-1.1) Potassium (3.5-5.1) mmol/L Chloride (98-107) mmol/L Carbon Dioxide (21-32) mmol/L BUN (7-18) mg/dl BUN/Creatinine Ratio (10-20) Glucose (70-99) mg/dl Total Bilirubin (0.2-1) mg/dl AST (15-37) U/L Alkaline Phosphatase (45-117) U/L Prostate Specific Ag 547.000 H (0-4) ng/ml Crossmatch See Detail
[2019-08-16] MEDS: MoRPHine SULFATE CR 15 MG TABCR PO SCH ×2 (14:07→20:36)
[2019-08-16] MEDS: POLYETHYLENE (MIRALAX) 17 GM PACK PO SCH ×2 (14:07→20:35)
--- NOTE | 2019-08-16 14:43 | History & Physical Report ---
Date of Service August 16, 2019 Assessment & Plan (1) Anemia: Hemoglobin was 5.1 on admission. Ddx includes myelophthisis (replacement of bone marrow by prostate cancer cells), other bone marrow process, hemolytic process, chemotherapy side effect, or bleeding. - Transfuse 3 units PRBCs - Recieved 1 unit platelets in the ED; will give another - CT a/p per oncology to look for RP bleed, though no mention of blood/hematoma in lumbar CT - Fecal occult stool, though he reports no bowel movement at all for several days - Continue Xtandi (enzalutamide) per oncology (2) Thrombocytopenia: Platelets have been low for months. Again, ddx includes myelophthisis, other bone marrow process, hemolytic process, vs. chemotherapy-induced. - Received 1 unit platelets in ER - Will get hemolytic labs - Transfuse platelets > 50 - Monitor for bleeding (3) Weakness: Despite patient's concern for R>L leg weakness, I do not appreciate this on exam. CT lumbar spine shows progressive of skeletal metastasis, but no indication of spinal cord compromise. I believe this is mostly due to generalized weakness from his anemia and overall deconditioning from metastatic cancer. - PT/OT - Monitor neurologic evaluation - Consider MRI lumbar spine if any focal changes (4) Prostate cancer metastatic to bone: Diagnosed in 2017, though disease process seems to be rapidly progressing at this time. Discussed on 08/[address] Brewer. There was some concern patient may be forgetting his pills due to his epilepsy, but he told Dr. Brewer he has been taking his Xtandi consistently. If this is the case, this is bad news as his cancer is progressing despite treatment, and he may not have any other treatment options available. - Replete hgb and plts as above - Palliative care consult for pain from bony mets as well as code discussion. In our conversation today, he remains full code. 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 - Continue oxcarbazepine (6) Constipation, chronic: Long-standing issue. He had trouble remembering taking his Miralax and other stool softeners, so he would not have BM for a week or more at a time. - Continue home Miralax BID - Add senna BID - Monitor for BM and if none, consider increasing bowel regimen (7) DVT prophylaxis: SCDs - Given severe anemia, concern for bleed, and low platelets. History of Present Illness Primary Care Provider: NO PCP 54yo M w/ hx of metastatic prostate cancer who presents for weakness. Per patient, he is just generally weaker than usual. Even as of a few days ago, he was able to walk around and shower/bath on his own. In the last few days, he has become progressively weaker (most notably in his legs, but all over) to the point that he cannot stand up and walk on his own at this point. He denies any fevers or chills. He feels the right leg may be weaker than the left, but overall does not have any focal weakness. He otherwise has no dysphagia, no focal upper body weakness, no changes in sensation. Allergies Allergy/AdvReac Type Severity Reaction Status Date / Time No Known Allergies Allergy Verified 08/16/19 08:12 Home Medications Home Medications Medication Instructions Recorded Confirmed Type multivitamin 1 tab PO QAM 05/27/19 08/16/19 History oxcarbazepine [Trileptal] 300 mg PO BID 05/27/19 08/16/19 History ondansetron 8 mg disintegrating 8 mg PO PRN PRN tab 07/07/19 08/16/19 History tablet polyethylene glycol 3350 17 17 gm PO DAILY PRN 07/07/19 08/16/19 History gram/dose oral powder Xtandi 160 mg PO DAILY@199907/30/19 08/16/19 History potassium chloride 10 meq PO DAILY #30 tab 07/31/19 08/16/19 Rx goserelin [Zoladex] 3.6 mg SUBCUT MONTHLY 08/16/19 08/16/19 History morphine 15 mg PO QID PRN 08/16/19 08/16/19 History morphine [MS Contin] 30 mg PO Q12H PRN 08/16/19 08/16/19 History prochlorperazine maleate 10 mg PO Q6H PRN 08/16/19 08/16/19 History Past Med/Surg History Medical History Anemia (Acute) S/P blood transfusion of 5 UPRBCs 05/27/19 Chronic pain (Chronic) Forgetfulness (Chronic) Pt has poor recall H/O transfusion of packed red blood cells (Resolved) 05/27/19 Hypokalemia Prostate cancer (Chronic) 09/15/16 Prostate cancer metastatic to bone (Chronic) Prostate cancer metastatic to bone Seizure disorder (Chronic) Surgical History H/O prostatectomy (Resolved) 12/27/16 History of testicular surgery (Resolved) For undescended testes S/P radiation therapy (Resolved) Status post chemotherapy (Resolved) Family History Mother , at 75yo Multiple myeloma Father No problems noted. Brother No problems noted. Brother No problems noted. Brother No problems noted. Sister Hypertension Sister Bipolar disorder Social History Preferred Language: Yakut Communication Ability: Effective Visual Impairment: No Limitations Hearing Ability: Normal Bending Press Operator Required: No Beliefs That Will Affect Care: None marital status: Current Living Situation: Family current occupational status: employed current occupation: Works in [place] Other Information That Helps Us Care for You: No Feels Safe at Home: Yes Safety Concerns: Feels Safe At This Time Smoking Status: Former smoker Tobacco Type: cigarettes ; Cigarettes Per Day: Quit in 2017;1 PPD x 29yrs ; Second Hand Exposure: No ; Hx Alcohol Use: Yes Hx Substance Use: No caffeine: No during the past year weight has: decreased > 10 lbs Review of Systems Review of Systems: All systems reviewed & are unremarkable except as noted in HPI & below Physical Exam Constitutional: WD/WN, vitals as above Eyes: EOM intact bilaterally; no conjunctival abnormality ENMT: external ear and nose normal, oropharynx normal Neck: trachea midline, no thyromegaly normal visual inspection Respiratory: normal respiratory effort, lungs clear to auscultation no respiratory distress Cardiovascular: RRR, no murmur, no edema Gastrointestinal (Abdomen): Inspection/Auscultation: abdomen normal to inspection; abdomen not distended Musculoskeletal: no cyanosis or clubbing, extremities motor strength 5/5 Skin: no rashes, warm and dry Neurologic: moves all extremities (Lower extremity strength 4/5 bilaterally) and awake; + CN's not intact (Tongue deviation to the right) Psychiatric: Orientation: alert, oriented to person and cooperative Results & Data Vital Signs (Past 12 Hours) Vital Signs Temp Pulse Pulse Resp BP BP Pulse Ox 08/16/19 11:45 36.9 C 86 97 H 16 136/60 94 08/16/19 11:13 37.3 C 83 24 142/74 H 99 08/16/19 11:00 82 16 139/71 97 08/16/19 10:45 82 16 137/72 97 08/16/19 10:43 37.3 C 84 21 137/72 100 08/16/19 10:30 81 15 139/75 93 08/16/19 10:15 84 18 141/73 H 99 08/16/19 10:13 37.0 C 81 22 141/73 H 100 08/16/19 10:00 81 18 136/70 92 08/16/19 09:58 37.2 C 84 24 136/70 97 08/16/19 09:45 82 22 136/71 99 08/16/19 09:37 36.7 C 81 23 129/66 94 08/16/19 09:30 83 22 98 08/16/19 09:00 80 21 132/71 98 08/16/19 08:47 78 13 123/66 94 08/16/19 08:45 78 21 98 08/16/19 08:30 87 25 H 95 08/16/19 08:15 84 22 92 08/16/19 08:01 82 24 96 08/16/19 08:00 84 23 133/72 96 08/16/19 07:56 37.3 C 89 20 128/70 95 08/16/19 07:45 82 20 134/71 93 Code Status & VTE Plan VTE Prophylaxis Plan VTE Prophylaxis will be ordered: Yes PG Care Time/CCT Total # of Minutes Spent Total Time Spent with Patient: Total time spent is greater than 50% in coordination of care (as documented) at patient's floor/unit and/or counseling patient: (1) Anemia Anemia type: unspecified type Qualified Code(s): D64.9 - Anemia, unspecified
[2019-08-16 16:01] LABS: Fibrinogen 271 mg/dl (184-400)
[2019-08-16] MEDS: POTASSIUM CHLORIDE PWD 20 MEQ PACK PO SCH ×2 (17:33→20:35)
[2019-08-16] MEDS: POTASSIUM CHLORIDE / WTR 10 MEQ/100 ML PLCT IV SCH ×4 (18:45→22:41)
[2019-08-16] MEDS: ENZALUTAMIDE 40 MG PO SCH (19:42)
[2019-08-16] MEDS: OXcarbazepine 150 MG TABLET PO SCH (20:37)
--- NOTE | 2019-08-16 22:01 | Electrocardiogram Report ---
Test Reason : Blood Pressure : / mmHG Vent. Rate : 080 BPM Atrial Rate : 080 BPM P-R Int : 132 ms QRS Dur : 084 ms QT Int : 510 ms P-R-T Axes : 085 060 076 degrees QTc Int : 588 ms Normal sinus rhythm Prolonged QT Abnormal ECG When compared with ECG of 30-JUL-2019 16:51, QT has lengthened Confirmed by Hardik Beach ([id number]) on 08/16/2019 10:00:57 PM Referred By: REFERRED SELF Confirmed By:Hardik Beach
[2019-08-17 01:23] LABS: Appearance Urine Clear (Clear); Bilirubin Urine Negative (Negative); Blood Urine Negative (Negative); Color Urine Dark Yellow; Glucose Urine UA Negative (Negative); Ketones Urine Trace (Negative); Leukocyte Esterase Urine Negative (Negative); Nitrite Urine Negative (Negative); Protein Urine Negative (Negative); Specific Gravity Urine 1.022 (1.000-1.030); Urobilinogen Urine Negative (Negative)
--- NOTE | 2019-08-17 07:05 | CT Scan Report ---
CT abd pelvis wo con CLINICAL HISTORY: 54 years-old Male presenting with metastatic prostate cancer, weakness, concern for retroperitoneal bleed. TECHNIQUE: Multidetector CT of the abdomen and pelvis was performed without the use of intravenous co ntrast. IV contrast: None. One or more dose lowering techniques were used consistent with the princip les of ALARA (as low as reasonably achievable), including automatic exposure control, mA or kV adjust ment to individual patient size, and/or use of iterative reconstruction. COMPARISON: 05/27/2019. CT DOSE (mGy.cm): The estimated cumulative dose is 282.91 mGy.cm. FINDINGS: Retail Experience Specialist topogram: Pelvic surgical clips likely related to prior prostatectomy. Lung bases: Intraventricular blood pool is less dense than adjacent myocardium consistent with anemia . Moderate bilateral pleural effusions, which are grossly simple appearing. Extensive bibasilar passi ve atelectasis. Liver: Normal morphology. Normal density. Biliary: No gross biliary ductal dilatation allowing for noncontrast technique. Layering hyperdensity in the gallbladder most likely relates to the presence of gallbladder sludge. The gallbladder is phy siologically distended without evidence of tension. Pancreas: Normal noncontrast appearance. Spleen: Normal noncontrast appearance. Adrenal glands: Normal noncontrast appearance. Kidneys and ureters: Nonobstructing 4 mm calculus at the lower pole the left kidney. Normal noncontra st appearance of the renal parenchyma. No hydronephrosis. Ureters nondistended. Bladder: Circumferential bladder wall thickening. Pelvic organs: Postsurgical changes of prostatectomy. No gross abnormality of the residual anastomosi s allowing for noncontrast technique. Bowel: Presacral infiltrative changes likely related to prior external beam radiation. The rectum its elf is normal appearing. Minimal diverticulosis at the proximal sigmoid colon. Moderate stool burden and mildly distended colon proximal to the sigmoid colon. No evidence of volvulus, obstruction, or ma ss. The appendix is normal. The appearance is not overly concerning for large bowel obstruction. Smal l bowel is nondistended. Peritoneal cavity: No free fluid or intraperitoneal gas. No retroperitoneal hematoma is evident. Lymph nodes: No gross lymphadenopathy allowing for noncontrast technique. Vasculature: Normal noncontrast appearance. Abdominal wall: Postsurgical changes of the infra umbilical abdominal wall. Musculoskeletal: Diffuse sclerotic changes of the osseous structures consistent with known metastatic disease. IMPRESSION: 1. No evidence of a retroperitoneal hematoma. 2. Stool burden suggests constipation. No convincing evidence of large bowel obstruction. 3. Anemia. 4. Osseous metastatic disease. 5. Postsurgical changes of prostatectomy. 6. Nonobstructing left renal calculus. 7. Moderate bilateral pleural effusions with extensive bibasilar atelectasis. ACT 112: Negative or not required by law. Electronically signed by: Tino Martinez M.D. 08/17/2019 7:03 AM
[2019-08-17 07:36] LABS: Hematocrit (blood only) 23.9 % (42-52); Hemoglobin 7.9 g/dL (14.0-18.0); Mean Corpuscular Hemoglobin 30.3 pg (25-34); Mean Corpuscular Hgb Conc 33.1 g/dL (32-36); Mean Corpuscular Volume 91.6 fL (80-100); Nucleated RBC # (auto) 0.41 K/uL (0-0); Nucleated RBC % (auto) 8.8 %; Platelet Count 37 K/uL (130-400); RDW Coefficient of Variation 22.6 % (11.5-14.5); RDW Standard Deviation 71.7 fL (36.4-46.3); Red Blood Count 2.61 M/uL (4.7-6.1); White Blood Count 4.62 K/uL (4.8-10.8)
[2019-08-17 07:40] LABS: Fibrinogen 260 mg/dl (184-400); INR 1.1 (0.9-1.1); Prothrombin Time 11.6 Seconds (9.0-12.0)
[2019-08-17 08:01] LABS: Anisocytosis Present; Basophils # (auto) 0.02 K/uL (0-0.2); Basophils % (auto) 0.4 %; Eosinophils # (auto) 0.05 K/uL (0-0.5); Eosinophils % (auto) 1.1 %; Immature Granulocytes # (auto) 0.27 K/uL (0.00-0.02); Immature Granulocytes % (auto) 5.8 %; Lymphocytes # (auto) 1.14 K/uL (1.2-3.4); Lymphocytes % (auto) 24.7 %; Monocytes # (auto) 0.59 K/uL (0.11-0.59); Monocytes % (auto) 12.8 %; Neutrophils # (auto) 2.55 K/uL (1.4-6.5); Neutrophils % (auto) 55.2 %; Polychromasia 1+; Tear Drop Cells 2+
[2019-08-17 08:20] LABS: Albumin Globulin Ratio 1.1 (0.9-2); Albumin Level 3.1 gm/dl (3.4-5.0); BUN Creatinine Ratio 23.6 (10-20); Calcium 9.6 mg/dl (8.5-10.1); Creatinine Clr Calc Pharmacy 100.9 ml/min; Est GFR (Non-African American) 98.4; Globulin 2.9 gm/dl (2.5-4.0); Magnesium 2.1 mg/dl (1.8-2.4); Phosphorus 3.6 mg/dl (2.5-4.9); Potassium 3.7 mmol/L (3.5-5.1)
[2019-08-17] MEDS: POLYETHYLENE (MIRALAX) 17 GM PACK PO SCH ×2 (09:06→21:37)
[2019-08-17] MEDS: MoRPHine SULFATE CR 15 MG TABCR PO SCH ×2 (09:06→21:37)
[2019-08-17] MEDS: OXcarbazepine 150 MG TABLET PO SCH ×2 (09:06→21:39)
--- NOTE | 2019-08-17 12:12 | Hospitalist Progress Note ---
Date of Service August 17, 2019 Assessment & Plan (1) Anemia: Hemoglobin was 5.1 and then 4.7 on admission. Ddx includes myelophthisis (replacement of bone marrow by prostate cancer cells), other bone marrow process, hemolytic process, chemotherapy side effect, or bleeding. - Transfused 3 units PRBCs and had improvement in Hgb up to 7.9 - CT a/p per oncology to look for RP bleed is negative for bleeding, and no mention of blood/hematoma in lumbar CT - Fecal occult stool still pending, though he reports no bowel movement at all for a week - Continue Xtandi (enzalutamide) per oncology -Oncology thinks most likely has prostate CA invasion into marrow -follow CBC in AM (2) Thrombocytopenia: Platelets have been low for months. Again, ddx includes myelophthisis, other bone marrow process, hemolytic process, vs. chemotherapy-induced. -- Recieved 2 unit platelets here and plts at 37k today - Transfuse platelets if<15-20k or evidence of bleeding - Monitor for bleeding (3) Weakness: With 3/5 strength throughout in bilat LEs, symmetric on my exam Not able to ambulate recently CT lumbar spine shows progressive of skeletal metastasis, but no indication of spinal cord compromise. I believe this is mostly due to generalized weakness from his anemia and overall deconditioning from metastatic cancer, severe anemia - PT/OT eval sordered - Monitor neurologic evaluation - Consider MRI lumbar spine if any focal changes (4) Prostate cancer metastatic to bone: Diagnosed in 2017, though disease process seems to be rapidly progressing at this time. Discussed on 08/[address] Brewer. There was some concern patient may be forgetting his pills due to his epilepsy, but he told Dr. Brewer he has been taking his Xtandi consistently. If this is the case, this is bad news as his cancer is progressing despite treatment, and he may not have any other treatment options available. - Replete hgb and plts as above - Palliative care consult for pain from bony mets as well as code discussion. -pt aware that he has a terminal condition and mentions going on palliative treatment once he returns home to [place] which is his goal -continue Morphine ER 30mg po bid with morphine IR 15mg po q6h prn -discussed care with Rad Onc Dr. 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 - Continue oxcarbazepine -supportive care (6) Constipation, chronic: Long-standing issue, now worsened by opioid use. He had trouble remembering taking his Miralax and other stool softeners, so he would not have BM for a week or more at a time. - Continue home Miralax BID - Added senna/docusate BID and add Bisacodyl suppos daily prn-discussed with RN (7) DVT prophylaxis: SCDs - Given severe anemia, concern for bleed, and low platelets, no chemical prophylaxis Dispo-remain hospitalized, monitor for need for repeat transfusions, possible dc tomorrow with Hospice and goal of returning home to [place] Palliative Care consult pending as well Subjective Pt reports pain in his shoulders and upper back, finds it hard to get a comfortable position for more than a few minutes at a time, but rates the severity at only a 3/10. He repeats himself at times and keeps reminding me that he has a poor memory. Denies CP, SOB, no abd pain. No BM in a week he thinks. Denies headache. Says he tends to bite his tongue if he doesn't chew on the left side of his mouth due to the protrusion of his tongue to the right. States he would want to continue XRT to the skull if it will give him any benefit with his tongue. He asks "Doctor, am I terminal?" Review of Systems Review of Systems: All systems reviewed & are unremarkable except as noted in HPI & below Physical Exam Constitutional: + thin; no acute distress Eyes: PERRL, conjunctivae normal, anicteric sclerae ENMT: Ears: no hearing impairment Mouth: + tongue abnormality (protrudes to the right); no lip abnormality Neck: trachea midline, no thyromegaly Respiratory: normal respiratory effort, lungs clear to auscultation Cardiovascular: RRR, no murmur, no edema Chest (Breasts): Chest: normal inspection of chest Gastrointestinal (Abdomen): normal bowel sounds, soft, nontender, no hepatosplenomegaly Musculoskeletal: Extremities: extremities normal to inspection; no cyanosis and no clubbing Skin: no rashes, warm and dry Neurologic: + focal motor deficit (3/5 strength throughout LEs bilat, 4/5 throughout UEs bilat) and awake; + CN's not intact (2-12 intact except with protrusion on tongue to the right) Psychiatric: Orientation: alert, oriented to person, oriented to place and cooperative; + not oriented to time Eye Contact: good eye contact Motor Behavior: n tremor Speech: normal rate/rhythm/volume of speech Affect: + flat affect Thought Process: goal directed thought process Cognition: + recent memory not intact Lymphatic: no lymphedema Results & Data Vital Signs (Past 12 Hours) Vital Signs Temp Pulse Pulse Resp BP BP BP 08/17/19 08:20 67 08/17/19 07:34 36.9 C 67 20 150/84 H 08/17/19 01:50 36.6 C 70 18 152/82 H 08/17/19 00:40 36.9 C 75 18 149/84 H 08/17/19 00:15 37 C 72 18 166/83 H Pulse Ox 08/17/19 08:20 08/17/19 07:34 97 08/17/19 01:50 98 08/17/19 00:40 97 08/17/19 00:15 97 Laboratory Results 08/17/19 08/17/19 08/17/19 Range/Units 07:15 07:15 07:15 WBC 4.62 L (4.8-10.8) K/uL RBC 2.61 L (4.7-6.1) M/uL Hgb 7.9 L D (14.0-18.0) g/dL Hct 23.9 L (42-52) % MCV 91.6 D (80-100) fL MCH 30.3 (25-34) pg MCHC 33.1 (32-36) g/dL RDW Std Deviation 71.7 H (36.4-46.3) fL RDW Coeff of [place] 22.6 H (11.5-14.5) % Plt Count 37 L (130-400) K/uL MPV 9.0 (7.4-10.4) fL Immature Gran % (Auto) 5.8 % Neut % (Auto) 55.2 % Lymph % (Auto) 24.7 % [place] % (Auto) 12.8 % Eos % (Auto) 1.1 % Baso % (Auto) 0.4 % Immature Gran # (Auto) 0.27 H (0.00-0.02) K/uL Neut # (Auto) 2.55 (1.4-6.5) K/uL Lymph # (Auto) 1.14 L (1.2-3.4) K/uL [place] # (Auto) 0.59 (0.11-0.59) K/uL Eos # (Auto) 0.05 (0-0.5) K/uL Baso # (Auto) 0.02 (0-0.2) K/uL Absolute Nucleated RBC 0.41 H (0-0) K/uL Nucleated RBC % (auto) 8.8 % Neutrophils % (Manual) % Lymphocytes % (Manual) % Monocytes % (Manual) % Eosinophils % (Manual) % Metamyelocytes % (Man) % Myelocytes % (Man) % Neutrophils # (Manual) (1.4-6.5) K/uL Total Absolute Neuts (1.4-6.5) K/uL Lymphocytes # (Manual) (1.2-3.4) K/uL Total Abs Lymphocytes (1.2-3.4) K/uL Monocytes # (Manual) (0.11-0.59) K/uL Eosinophils # (Manual) (0-0.5) K/uL Metamyelocytes # (Man) (0-0) K/uL Myelocytes # (Manual) (0-0) K/uL Polychromasia 1+ Anisocytosis Present Tear Drop Cells 2+ Peripher Smr Path Cons PT 11.6 (9.0-12.0) Seconds INR 1.1 (0.9-1.1) Fibrinogen 260 (184-400) mg/dl Sodium 139 (136-145) mmol/L Potassium 3.7 D (3.5-5.1) mmol/L Chloride 102 (98-107) mmol/L Carbon Dioxide 32 (21-32) mmol/L Anion Gap 6.0 (3-11) BUN 20 H (7-18) mg/dl Creatinine 0.83 (0.6-1.4) mg/dl Est Cr Clr Drug Dosing 100.9 ml/min Est GFR ( Amer) 114.0 Est GFR (Non-Af Amer) 98.4 BUN/Creatinine Ratio 23.6 H (10-20) Glucose 103 H (70-99) mg/dl Calcium 9.6 (8.5-10.1) mg/dl Phosphorus 3.6 (2.5-4.9) mg/dl Magnesium 2.1 (1.8-2.4) mg/dl Total Bilirubin 2.0 H (0.2-1) mg/dl AST 38 H (15-37) U/L ALT 37 (12-78) U/L Alkaline Phosphatase 266 H (45-117) U/L Lactate Dehydrogenase (87-241) U/L Total Protein 6.0 L (6.4-8.2) gm/dl Albumin 3.1 L (3.4-5.0) gm/dl Globulin 2.9 (2.5-4.0) gm/dl Albumin/Globulin Ratio 1.1 (0.9-2) Urine Color Urine Appearance (Clear) Urine pH (4.5-7.5) Ur Specific [place] (1.000-1.030) Urine Protein (Negative) Urine Glucose (UA) (Negative) Urine Ketones (Negative) Urine Blood (Negative) Urine Nitrite (Negative) Urine Bilirubin (Negative) Urine Urobilinogen (Negative) Ur Leukocyte Esterase (Negative) Blood Type Antibody Screen Crossmatch 08/17/19 08/16/19 08/16/19 Range/Units 00:12 15:23 15:23 WBC (4.8-10.8) K/uL RBC (4.7-6.1) M/uL Hgb (14.0-18.0) g/dL Hct (42-52) % MCV (80-100) fL MCH (25-34) pg MCHC (32-36) g/dL RDW Std Deviation (36.4-46.3) fL RDW Coeff of [place] (11.5-14.5) % Plt Count (130-400) K/uL MPV (7.4-10.4) fL Immature Gran % (Auto) % Neut % (Auto) % Lymph % (Auto) % [place] % (Auto) % Eos % (Auto) % Baso % (Auto) % Immature Gran # (Auto) (0.00-0.02) K/uL Neut # (Auto) (1.4-6.5) K/uL Lymph # (Auto) (1.2-3.4) K/uL [place] # (Auto) (0.11-0.59) K/uL Eos # (Auto) (0-0.5) K/uL Baso # (Auto) (0-0.2) K/uL Absolute Nucleated RBC (0-0) K/uL Nucleated RBC % (auto) % Neutrophils % (Manual) % Lymphocytes % (Manual) % Monocytes % (Manual) % Eosinophils % (Manual) % Metamyelocytes % (Man) % Myelocytes % (Man) % Neutrophils # (Manual) (1.4-6.5) K/uL Total Absolute Neuts (1.4-6.5) K/uL Lymphocytes # (Manual) (1.2-3.4) K/uL Total Abs Lymphocytes (1.2-3.4) K/uL Monocytes # (Manual) (0.11-0.59) K/uL Eosinophils # (Manual) (0-0.5) K/uL Metamyelocytes # (Man) (0-0) K/uL Myelocytes # (Manual) (0-0) K/uL Polychromasia Anisocytosis Tear Drop Cells Peripher Smr Path Cons PT (9.0-12.0) Seconds INR (0.9-1.1) Fibrinogen 271 (184-400) mg/dl Sodium (136-145) mmol/L Potassium (3.5-5.1) mmol/L Chloride (98-107) mmol/L Carbon Dioxide (21-32) mmol/L Anion Gap (3-11) BUN (7-18) mg/dl Creatinine (0.6-1.4) mg/dl Est Cr Clr Drug Dosing ml/min Est GFR ( Amer) Est GFR (Non-Af Amer) BUN/Creatinine Ratio (10-20) Glucose (70-99) mg/dl Calcium (8.5-10.1) mg/dl Phosphorus (2.5-4.9) mg/dl Magnesium (1.8-2.4) mg/dl Total Bilirubin (0.2-1) mg/dl AST (15-37) U/L ALT (12-78) U/L Alkaline Phosphatase (45-117) U/L Lactate Dehydrogenase 389 H (87-241) U/L Total Protein (6.4-8.2) gm/dl Albumin (3.4-5.0) gm/dl Globulin (2.5-4.0) gm/dl Albumin/Globulin Ratio (0.9-2) Urine Color Dark Yellow Urine Appearance Clear (Clear) Urine pH 6.0 (4.5-7.5) Ur Specific [place] 1.022 (1.000-1.030) Urine Protein Negative (Negative) Urine Glucose (UA) Negative (Negative) Urine Ketones Trace H (Negative) Urine Blood Negative (Negative) Urine Nitrite Negative (Negative) Urine Bilirubin Negative (Negative) Urine Urobilinogen Negative (Negative) Ur Leukocyte Esterase Negative (Negative) Blood Type Antibody Screen Crossmatch 08/16/19 08/16/19 08/16/19 Range/Units 15:23 12:35 08:18 WBC 3.65 L (4.8-10.8) K/uL RBC 1.47 L (4.7-6.1) M/uL Hgb 4.7 L* (14.0-18.0) g/dL Hct 15.1 L* (42-52) % MCV 102.7 H (80-100) fL MCH 32.0 (25-34) pg MCHC 31.1 L (32-36) g/dL RDW Std Deviation 72.9 H (36.4-46.3) fL RDW Coeff of [place] 20.3 H (11.5-14.5) % Plt Count 42 L D (130-400) K/uL MPV 8.9 (7.4-10.4) fL Immature Gran % (Auto) % Neut % (Auto) % Lymph % (Auto) % [place] % (Auto) % Eos % (Auto) % Baso % (Auto) % Immature Gran # (Auto) (0.00-0.02) K/uL Neut # (Auto) (1.4-6.5) K/uL Lymph # (Auto) (1.2-3.4) K/uL [place] # (Auto) (0.11-0.59) K/uL Eos # (Auto) (0-0.5) K/uL Baso # (Auto) (0-0.2) K/uL Absolute Nucleated RBC 0.34 H (0-0) K/uL Nucleated RBC % (auto) 9.4 % Neutrophils % (Manual) 67.0 % Lymphocytes % (Manual) 20.2 % Monocytes % (Manual) 6.4 % Eosinophils % (Manual) 1.8 % Metamyelocytes % (Man) 1.8 % Myelocytes % (Man) 2.8 % Neutrophils # (Manual) 2.45 (1.4-6.5) K/uL Total Absolute Neuts 2.45 (1.4-6.5) K/uL Lymphocytes # (Manual) 0.74 L (1.2-3.4) K/uL Total Abs Lymphocytes 0.74 L (1.2-3.4) K/uL Monocytes # (Manual) 0.23 (0.11-0.59) K/uL Eosinophils # (Manual) 0.07 (0-0.5) K/uL Metamyelocytes # (Man) 0.07 H (0-0) K/uL Myelocytes # (Manual) 0.10 H (0-0) K/uL Polychromasia 1+ Anisocytosis Present Tear Drop Cells 2+ Peripher Smr Path Cons PT (9.0-12.0) Seconds INR (0.9-1.1) Fibrinogen (184-400) mg/dl Sodium (136-145) mmol/L Potassium (3.5-5.1) mmol/L Chloride (98-107) mmol/L Carbon Dioxide (21-32) mmol/L Anion Gap (3-11) BUN (7-18) mg/dl Creatinine (0.6-1.4) mg/dl Est Cr Clr Drug Dosing ml/min Est GFR ( Amer) Est GFR (Non-Af Amer) BUN/Creatinine Ratio (10-20) Glucose (70-99) mg/dl Calcium (8.5-10.1) mg/dl Phosphorus (2.5-4.9) mg/dl Magnesium (1.8-2.4) mg/dl Total Bilirubin (0.2-1) mg/dl AST (15-37) U/L ALT (12-78) U/L Alkaline Phosphatase (45-117) U/L Lactate Dehydrogenase (87-241) U/L Total Protein (6.4-8.2) gm/dl Albumin (3.4-5.0) gm/dl Globulin (2.5-4.0) gm/dl Albumin/Globulin Ratio (0.9-2) Urine Color Urine Appearance (Clear) Urine pH (4.5-7.5) Ur Specific [place] (1.000-1.030) Urine Protein (Negative) Urine Glucose (UA) (Negative) Urine Ketones (Negative) Urine Blood (Negative) Urine Nitrite (Negative) Urine Bilirubin (Negative) Urine Urobilinogen (Negative) Ur Leukocyte Esterase (Negative) Blood Type O Positive Antibody Screen NEGATIVE Crossmatch See Detail PG Care Time/CCT Total # of Minutes Spent Total Time Spent with Patient: Total time spent is greater than 50% in coordination of care (as documented) at patient's floor/unit and/or counseling patient: (1) Anemia Anemia type: unspecified type Qualified Code(s): D64.9 - Anemia, unspecified
[2019-08-17] MEDS ORDERED: bisacodyL 10 MG SUPP PR PRN (12:14)
[2019-08-17] MEDS: MoRPHine SULFATE IR 15 MG TAB (IMMEDIATE RELEASE) PO PRN ×2 (12:35→19:29)
[2019-08-17] MEDS: DOCUSATE SODIUM/SENNA 50/8.6MG TAB PO SCH ×2 (12:35→21:37)
--- NOTE | 2019-08-17 17:44 | Palliative Care Consultation ---
Date of Consultation August 17, 2019 Assessment & Plan (1) Goals of care, counseling/discussion: Patient is a 54-year-old male with widely metastatic prostate cancer- diagnosed several years ago and treated in his home country of [place]. Patient arrived in the [place] in May of this year to visit his sister-sister noted he appeared ill and sought medical attention. [facility]. Patient was started on Xtandi-recent PET scans and PSA show worsening, progressive disease. Patient also with pancytopenia-oncology suspects marrow involvement from his prostate cancer. 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 -Patient was seen in palliative outpatient clinic on 08/10/2019 along with his father and his sister. Pain has been well controlled with MS Contin 30 mg every 12 hours and occasional PRN MSIR 15 mg. Patient is having increasing weakness- some related to his pancytopenia and anemia. -Patient seen and examined in room 258, patient's father at bedside. Patient's returned to [place] on 08/10 as she had to return to work. -Goals of care-reviewed oncology note, with progressive disease and increased weakness given his pancytopenia it is imperative that patient return to [place] as soon as possible. Expect he will only get weaker from here on out. Patient's father states he is making arrangements to return. Collaborated with case management who reported the brother has arranged for a flight on 08/21. Will collaborate with attending team regarding medications and arrangements for patient to make flight home -Widely metastatic prostate cancer-disease progression despite multiple chemo regimes and Xtandi -Cancer related pain-currently well controlled with MS Contin and PRN morphine. Patient with short-term memory issues that limit his compliance with his pain meds. -Weakness-increasing, partly due to pancytopenia, disease progression -Pancytopenia-as per oncology, suspect marrow involvement. Patient was transfused 3 units of packed cells and a unit of platelets. Patient will likely require further transfusions -Memory loss-due to epileptic amnesia-seizures controlled with Trileptal. Memory loss complicating medical compliance -Opioid induced constipation-patient taking MiraLAX, again short-term memory loss may be playing a role in medical compliance -Will continue to follow and assist family with transfer home to [place]. Encouraged patient's father to assist patient with getting home as soon as possible-concern that if he does not return to [place] shortly he will be too weak to travel in the not too distant future. (2) Prostate cancer metastatic to bone: (3) Cancer associated pain: (4) Weakness: (5) Pancytopenia: (6) Epilepsy: (7) Constipation, chronic: History of Present Illness Reason for Consultation: Previously established palliative clinic patient, assist with pain management as well as goals of care Requesting Physician: Dr. Maxwell Rojas Attending Physician: Chantal Machado MD History of Present Illness Patient is a 54-year-old male with widely metastatic prostate cancer-diagnosed several years ago and treated in his home country of [place]. Patient [place] the [place] in May of this year to visit his sister-sister noted he appeared ill and sought medical attention. [facility]. Patient was started on Xtandi-recent PET scans and PSA show worsening, progressive disease. Patient also with pancytopenia-oncology suspects marrow involvement from his prostate cancer. 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 -Patient was seen in palliative clinic on 08/10/2019 along with his father and his sister. Pain has been well controlled with MS Contin 30 mg every 12 hours and occasional PRN MSIR 15 mg. Patient is having increasing weakness-some related to his pancytopenia and anemia. -Patient seen and examined in room 258, patient's father at bedside. Patient's returned to [place] on 08/10 as she had to return to work. Allergies Allergy/AdvReac Type Severity Reaction Status Date / Time No Known Allergies Allergy Verified 08/16/19 08:12 Home Medications Home Medications Medication Instructions Recorded Confirmed Type multivitamin 1 tab PO QAM 05/27/19 08/16/19 History oxcarbazepine [Trileptal] 300 mg PO BID 05/27/19 08/16/19 History ondansetron 8 mg disintegrating 8 mg PO PRN PRN tab 07/07/19 08/16/19 History tablet polyethylene glycol 3350 17 17 gm PO DAILY PRN 07/07/19 08/16/19 History gram/dose oral powder Xtandi 160 mg PO DAILY@199907/30/19 08/16/19 History potassium chloride 10 meq PO DAILY #30 tab 07/31/19 08/16/19 Rx goserelin [Zoladex] 3.6 mg SUBCUT MONTHLY 08/16/19 08/16/19 History morphine 15 mg PO QID PRN 08/16/19 08/16/19 History morphine [MS Contin] 30 mg PO Q12H PRN 08/16/19 08/16/19 History prochlorperazine maleate 10 mg PO Q6H PRN 08/16/19 08/16/19 History Patient History Medical History Anemia (Acute) S/P blood transfusion of 5 UPRBCs 05/27/19 Chronic pain (Chronic) Forgetfulness (Chronic) Pt has poor recall H/O transfusion of packed red blood cells (Resolved) 05/27/19 Hypokalemia Prostate cancer (Chronic) 09/15/16 Prostate cancer metastatic to bone (Chronic) Prostate cancer metastatic to bone Seizure disorder (Chronic) Surgical History H/O prostatectomy (Resolved) 12/27/16 History of testicular surgery (Resolved) For undescended testes S/P radiation therapy (Resolved) Status post chemotherapy (Resolved) Family History Mother , at 75yo Multiple myeloma Father No problems noted. Brother No problems noted. Brother No problems noted. Brother No problems noted. Sister Hypertension Sister Bipolar disorder Social History Preferred Language: [place] Communication Ability: Effective Visual Impairment: No Limitations Hearing Ability: Normal Farm Management Agent Required: No Beliefs That Will Affect Care: None marital status: Current Living Situation: Family current occupational status: employed current occupation: Works in [place] Feels Safe at Home: Yes Smoking Status: Former smoker Tobacco Type: cigarettes ; Cigarettes Per Day: Quit in 2017;1 PPD x 29yrs ; Second Hand Exposure: No ; Hx Alcohol Use: Yes Hx Substance Use: No caffeine: No during the past year weight has: decreased > 10 lbs Review of Systems Review of Systems: Patient denies fever, chills, chest pain, shortness of breath, or abdominal pain Positive for weakness, generalized pain Physical Exam Physical Exam: PE: Patient awake alert, no acute distress. Positive short- term memory loss HEENT: EOMI, hearing within normal limits Respirations: Unlabored, clear breath sounds CV: Regular rate, no edema Abdomen: Soft, nontender Extremities: Generalized weakness, full range of motion Neuro: Short-term memory loss Results & Data Vital Signs (Past 12 Hours) Vital Signs Temp Pulse Pulse Resp BP Pulse Ox 08/17/19 16:00 71 08/17/19 14:51 98.4 F 70 20 144/83 H 97 08/17/19 13:22 98.6 F 68 18 147/79 H 96 08/17/19 08:20 67 08/17/19 07:34 98.5 F 67 20 150/84 H 97 PG Care Time/CCT Total # of Minutes Spent Total Time Spent with Patient: Total time spent is greater than 50% in coordination of care (as documented) at patient's floor/unit and/or counseling patient: Time Spent Attending Total time spent 70 minutes with greater than 50% of the time spent at bedside assessing patient's current comfort level as well is discussing goals of care with patient and father at bedside. Collaborated with case management and attending physician.
[2019-08-17] MEDS: ENZALUTAMIDE 40 MG PO SCH (19:30)
[2019-08-18] MEDS: MoRPHine SULFATE IR 15 MG TAB (IMMEDIATE RELEASE) PO PRN (03:34)
[2019-08-18] MEDS: POLYETHYLENE (MIRALAX) 17 GM PACK PO SCH ×2 (08:29→20:46)
[2019-08-18] MEDS: DOCUSATE SODIUM/SENNA 50/8.6MG TAB PO SCH ×2 (08:30→20:48)
[2019-08-18] MEDS: OXcarbazepine 150 MG TABLET PO SCH ×2 (08:30→20:48)
[2019-08-18] MEDS: MoRPHine SULFATE CR 15 MG TABCR PO SCH ×2 (08:32→20:45)
[2019-08-18 08:40] LABS: Hematocrit (blood only) 24.5 % (42-52); Hemoglobin 7.9 g/dL (14.0-18.0); Mean Corpuscular Hemoglobin 30.2 pg (25-34); Mean Corpuscular Hgb Conc 32.2 g/dL (32-36); Mean Corpuscular Volume 93.5 fL (80-100); Mean Platelet Volume 8.9 fL (7.4-10.4); Nucleated RBC # (auto) 0.39 K/uL (0-0); Nucleated RBC % (auto) 10.3 %; Platelet Count 26 K/uL (130-400); RDW Coefficient of Variation 22.1 % (11.5-14.5); RDW Standard Deviation 71.8 fL (36.4-46.3); Red Blood Count 2.62 M/uL (4.7-6.1); White Blood Count 3.81 K/uL (4.8-10.8)
[2019-08-18 08:59] LABS: BUN Creatinine Ratio 22.7 (10-20); Calcium 9.4 mg/dl (8.5-10.1); Creatinine Clr Calc Pharmacy 111.8 ml/min; Est GFR (African American) 118.2; Potassium 3.4 mmol/L (3.5-5.1)
[2019-08-18 09:12] LABS: Anisocytosis Present; Basophilic Stippling 1+; Ovalocytes 1+; Platelet Estimate SIGNIFIC DECREASED (Normal); Polychromasia 1+
[2019-08-18 09:29] LABS: ALC (manual) 0.88 K/uL (1.2-3.4); ANC (manual) 2.53 K/uL (1.4-6.5); Basophils # (manual) 0.07 K/uL (0-0.2); Basophils % (manual) 1.8 %; Lymphocytes # (manual) 0.88 K/uL (1.2-3.4); Metamyelocytes # (manual) 0.13 K/uL (0-0); Metamyelocytes % (manual) 3.5 %; Monocytes # (manual) 0.07 K/uL (0.11-0.59); Monocytes % (manual) 1.8 %; Myelocytes # (manual) 0.13 K/uL (0-0); Myelocytes % (manual) 3.5 %; Neutrophils # (manual) 2.53 K/uL (1.4-6.5); Neutrophils % (manual) 66.4 %
[2019-08-18] MEDS ORDERED: POTASSIUM CHLORIDE 20 MEQ TABCR PO STA (10:15)
--- NOTE | 2019-08-18 18:11 | Hospitalist Progress Note ---
Date of Service August 18, 2019 Assessment & Plan (1) Anemia: Hemoglobin was 5.1 and then 4.7 on admission. Ddx includes myelophthisis (replacement of bone marrow by prostate cancer cells), other bone marrow process, hemolytic process, chemotherapy side effect, or bleeding. - Transfused 3 units PRBCs and had improvement in Hgb up to 7.9 and stable today at 7.9 - CT a/p per oncology to look for RP bleed is negative for bleeding, and no mention of blood/hematoma in lumbar CT - Fecal occult stool still pending, though he reports no bowel movement at all for a week - Continue Xtandi (enzalutamide) per oncology -Oncology thinks most likely has prostate CA invasion into marrow -follow CBC in AM and transfuse for hgb<7 (2) Thrombocytopenia: Platelets have been low for months. Again, ddx includes myelophthisis, other bone marrow process, hemolytic process, vs. chemotherapy-induced. -- Recieved 2 unit platelets here and plts at 37k but now down again to 29 - Transfuse platelets if<15-20k or evidence of bleeding - Monitor for bleeding (3) Weakness: With 3/5 strength throughout in bilat LEs, symmetric on my exam Not able to ambulate recently CT lumbar spine shows progressive of skeletal metastasis, but no indication of spinal cord compromise. I believe this is mostly due to generalized weakness from his anemia and overall deconditioning from metastatic cancer, severe anemia - PT/OT eval sordered - Monitor neurologic evaluation - Consider MRI lumbar spine if any focal changes (4) Prostate cancer metastatic to bone: Diagnosed in 2017, though disease process seems to be rapidly progressing at this time. Discussed on 08/[address] Brewer. There was some concern patient may be forgetting his pills due to his epilepsy, but he told Dr. Luisa gonzalez he has been taking his Xtandi consistently. If this is the case, this is bad news as his cancer is progressing despite treatment, and he may not have any other treatment options available. - Replete hgb and plts as above - Palliative care consult for pain from bony mets as well as code discussion. -pt aware that he has a terminal condition and mentions going on palliative treatment once he returns home to [place] which is his goal -continue Morphine ER 30mg po bid with morphine IR 15mg po q6h prn -discussed care with Rad Onc Dr. foster and he discussed care with pt-will not finish out last three txs of XRT to the clivus as this would prevent him from getting home to [place] soon which is his goal and unclear if providing any real benefit (5) Epilepsy: Per patient, he has poor short-term memory due to "transient epilespy amnesia." Always prefers family in the room for conversation to help make sure he remembers. - Continue oxcarbazepine -supportive care (6) Constipation, chronic: Long-standing issue, now worsened by opioid use. He had trouble remembering taking his Miralax and other stool softeners, so he would not have BM for a week or more at a time. - Continue home Miralax BID - Added senna/docusate BID and Bisacodyl suppos daily prn -add Mag citrate if no BM by tomorrow (7) DVT prophylaxis: SCDs - Given severe anemia, concern for bleed, and low platelets, no chemical prophylaxis Dispo-remain hospitalized, monitor for need for repeat transfusions,dc on Sat AM likely now with direct transfer to airport for flight home to [place] Palliative Care consult appreciated Subjective Pt remains with short term memory loss but reiterates his appreciation for care received here. Still having significant pain with minimal movement. Reports he was crying with pain with transfer to a chair earlier today. No BM in many days still. Low appetite but is eating a little more today. His father is a t the bedside Review of Systems Review of Systems: All systems reviewed & are unremarkable except as noted in HPI & below Physical Exam Constitutional: + thin; no acute distress Eyes: + anicteric sclerae ENMT: Ears: no hearing impairment Mouth: + tongue abnormality (protrudes to the right); no lip abnormality Neck: trachea midline, no thyromegaly Respiratory: normal respiratory effort, lungs clear to auscultation Cardiovascular: RRR, no murmur, no edema Chest (Breasts): Chest: normal inspection of chest Gastrointestinal (Abdomen): normal bowel sounds, soft, nontender, no hepatosplenomegaly Musculoskeletal: Extremities: extremities normal to inspection; no cyanosis and no clubbing Skin: no rashes, warm and dry Neurologic: + focal motor deficit (3/5 strength throughout LEs bilat, 4/5 throughout UEs bilat) and awake; + CN's not intact (2-12 intact except with protrusion on tongue to the right) Psychiatric: Orientation: alert, oriented to person, oriented to place and cooperative; + not oriented to time Eye Contact: good eye contact Motor Behavior: n tremor Speech: normal rate/rhythm/volume of speech Thought Process: goal directed thought process Cognition: + recent memory not intact Lymphatic: no lymphedema Results & Data Vital Signs (Past 12 Hours) Vital Signs Temp Pulse Pulse Resp BP Pulse Ox 08/18/19 18:01 72 08/18/19 15:05 36.9 C 79 18 151/78 H 95 08/18/19 13:28 96 08/18/19 11:40 36.8 C 80 18 157/78 H 97 08/18/19 07:48 75 08/18/19 07:34 36.9 C 73 20 152/89 H 99 Laboratory Results labs reviewed, plts down to 29 PG Care Time/CCT Total # of Minutes Spent Total Time Spent with Patient: Total time spent is greater than 50% in coordination of care (as documented) at patient's floor/unit and/or counseling patient: (1) Anemia Anemia type: unspecified type Qualified Code(s): D64.9 - Anemia, unspecified
[2019-08-18] MEDS: ENZALUTAMIDE 40 MG PO SCH (20:46)
--- NOTE | 2019-08-18 21:22 | Palliative Care Progress Note ---
Date of Service August 18, 2019 Assessment & Plan (1) Goals of care, counseling/discussion: -Pt visited per brothers request to address code status. -Pt father visiting him and was at the bedside. -Pt was eating dinner as I entered, in no apparent distress. -Denies pain at this time. -Overall, patient has a flight scheduled with his , in business class seating with wheelchair accessibility planned for SaturdayAugust 22. -Dr. Brewer provided him with a detailed letter regarding his up to date medical treatment to provide to his PCP and specialist upon his return to [place]. -Prior to his departure, a fitness to fly letter is recommended that comments on his stability to return to [place] as a compassionate/terminal repatriation for Hospice care. Recommendations include a Hgb > 10 to prevent hypoxia, appropriate pain medication to provide in flight, and also confirming that the patient can tolerate sitting upright for one hour prior to take off and during landing. We also need to confirm that should he require using the bathroom that he will be able to ambulate independently to proceed to the bathroom with the assistance of his . -I talked with the hospitalist and I will create a document to provide to him prior to his discharge, should he be stable. -I have some concerns regarding his low hemoglobin, currently today 7.9. If the patient flies in a commercial aircraft with a Hgb < 10, he may have hypoxia and shortness of breath at increased altitudes. I would consider having a nurse fly with the patient as a medical escort with oxygen on standby which could be arranged through a medical assistance company or through a credit card if he has coverage or, alternatively, I would suggest he receive a blood transfusion prior to his departure to get the patients Hgb closer to 10.0. -I did discuss his code status and he would like to remain a Full Code at this time. Should he code in flight, a tugboat pilot diversion to the nearest hospital over said city, will proceed. -Will continue to follow and assist family with transfer home to [place]. Encouraged patient's father to assist patient with getting home as soon as possible-concern that if he does not return to [place] shortly he will be too weak to travel in the not too distant future. (2) Prostate cancer metastatic to bone: (3) Cancer associated pain: (4) Weakness: (5) Pancytopenia: (6) Epilepsy: (7) Constipation, chronic: Subjective Pt visited per brothers request to address code status. Pt father visiting him and was at the bedside. Pt was eating dinner as I entered, in no apparent distress. Denies pain at this time. See A/P for further details. Review of Systems Review of Systems: General: Patient denies fever, chills, CV: Pt denies chest pain, palpitations Resp: Pt denies shortness of breath GI: Pt denies abdominal pain Physical Exam Constitutional: + ill appearing and cooperative Respiratory: normal respiratory effort, lungs clear to auscultation Cardiovascular: RRR, no murmur, no edema Gastrointestinal (Abdomen): normal bowel sounds, soft, nontender, no hepatosplenomegaly Skin: no rashes, warm and dry Psychiatric: A+Ox3, euthymic affect Some short term memory loss Genitourinary: Dark dyana urine Results & Data Vital Signs (Past 12 Hours) Vital Signs Temp Pulse Pulse Resp BP BP Pulse Ox 08/18/19 19:10 37.0 C 85 18 152/83 H 97 08/18/19 18:01 72 08/18/19 15:05 36.9 C 79 18 151/78 H 95 08/18/19 13:28 96 08/18/19 11:40 36.8 C 80 18 157/78 H 97 PG Care Time/CCT Total # of Minutes Spent Total Time Spent with Patient: Total time spent is greater than 50% in coordination of care (as documented) at patient's floor/unit and/or counseling patient: 35 Time Spent Midlevel total time spent 35 minutes with > 50% of that time spent assessing the patient, discussing goals of care and repatriation/discharge planning with pt and IDT.
[2019-08-19] MEDS: MoRPHine SULFATE IR 15 MG TAB (IMMEDIATE RELEASE) PO PRN ×2 (05:33→15:32)
[2019-08-19 09:04] LABS: Hematocrit (blood only) 24.3 % (42-52); Hemoglobin 7.9 g/dL (14.0-18.0); Mean Corpuscular Hemoglobin 30.6 pg (25-34); Mean Corpuscular Hgb Conc 32.5 g/dL (32-36); Mean Corpuscular Volume 94.2 fL (80-100); Mean Platelet Volume 9.3 fL (7.4-10.4); Nucleated RBC % (auto) 9.7 %; Platelet Count 24 K/uL (130-400); RDW Coefficient of Variation 21.8 % (11.5-14.5); RDW Standard Deviation 70.9 fL (36.4-46.3); Red Blood Count 2.58 M/uL (4.7-6.1); White Blood Count 4.09 K/uL (4.8-10.8)
[2019-08-19 09:16] LABS: Calcium 9.5 mg/dl (8.5-10.1); Est GFR (Non-African American) 98.4; Potassium 3.4 mmol/L (3.5-5.1)
[2019-08-19 10:08] LABS: ALC (manual) 0.68 K/uL (1.2-3.4); ANC (manual) 2.65 K/uL (1.4-6.5); Basophils # (manual) 0.04 K/uL (0-0.2); Basophils % (manual) 0.9 %; Blast # (manual) 0.04 K/uL (0-0); Blast Cells % (manual) 0.9 %; Lymphocytes # (manual) 0.68 K/uL (1.2-3.4); Lymphocytes % (manual) 16.7 %; Metamyelocytes # (manual) 0.22 K/uL (0-0); Metamyelocytes % (manual) 5.3 %; Monocytes # (manual) 0.43 K/uL (0.11-0.59); Monocytes % (manual) 10.5 %; Myelocytes # (manual) 0.04 K/uL (0-0); Myelocytes % (manual) 0.9 %; Neutrophils # (manual) 2.65 K/uL (1.4-6.5); Neutrophils % (manual) 64.8 %; Platelet Estimate SIGNIFIC DECREASED (Normal); Polychromasia 1+; Tear Drop Cells 1+
[2019-08-19] MEDS: POLYETHYLENE (MIRALAX) 17 GM PACK PO SCH ×2 (10:32→21:37)
[2019-08-19] MEDS: DOCUSATE SODIUM/SENNA 50/8.6MG TAB PO SCH ×2 (10:33→21:37)
[2019-08-19] MEDS: MoRPHine SULFATE CR 15 MG TABCR PO SCH ×2 (10:33→21:36)
[2019-08-19] MEDS: OXcarbazepine 150 MG TABLET PO SCH ×2 (10:34→21:37)
[2019-08-19] MEDS ORDERED: POTASSIUM CHLORIDE 20 MEQ TABCR PO STA (15:01)
[2019-08-19] MEDS ORDERED: MAGNESIUM CITRATE 296 ML/BTL PO STA (15:02)
--- NOTE | 2019-08-19 18:31 | Hospitalist Progress Note ---
Date of Service August 19, 2019 Assessment & Plan (1) Anemia: Hemoglobin was 5.1 and then 4.7 on admission. Ddx includes myelophthisis (replacement of bone marrow by prostate cancer cells), other bone marrow process, hemolytic process, chemotherapy side effect, or bleeding. - Transfused 3 units PRBCs and had improvement in Hgb up to 7.9 and stable again today at 7.9 x 3 days in a row - CT a/p per oncology to look for RP bleed is negative for bleeding, and no mention of blood/hematoma in lumbar CT - Fecal occult stool still pending, had BM today but not collected - Continue Xtandi (enzalutamide) per oncology -Oncology thinks most likely has prostate CA invasion into marrow -follow CBC in AM and transfuse for hgb<7 (2) Thrombocytopenia: Platelets have been low for months. Again, ddx includes myelophthisis, other bone marrow process, hemolytic process, vs. chemotherapy-induced. -- Recieved 2 unit platelets here and plts at 37k but now down again to 24, no bleeding - Transfuse platelets if<15-20k or evidence of bleeding - Monitor for bleeding (3) Weakness: With 3/5 strength throughout in bilat LEs, symmetric on my exam Not able to ambulate recently CT lumbar spine shows progressive of skeletal metastasis, but no indication of spinal cord compromise. I believe this is mostly due to generalized weakness from his anemia and overall deconditioning from metastatic cancer, severe anemia - PT/OT evals ordered - Monitor neurologic evaluation - Consider MRI lumbar spine if any focal changes (4) Prostate cancer metastatic to bone: Diagnosed in 2017, though disease process seems to be rapidly progressing at this time. Discussed on 08/[address] Brewer. There was some concern patient may be forgetting his pills due to his epilepsy, but he told Dr. Brewer he has been taking his Xtandi consistently. If this is the case, this is bad news as his cancer is progressing despite treatment, and he may not have any other treatment options available. - Replete hgb and plts as above as needed - Palliative care consult for pain from bony mets as well as code discussion. -pt aware that he has a terminal condition and mentions going on palliative treatment once he returns home to [place] which is his goal -continue Morphine ER 30mg po bid with morphine IR 15mg po q6h prn -discussed care with Rad Onc Dr. foster and he discussed care with pt-will not finish out last three txs of XRT to the clivus as this would prevent him from getting home to [place] soon which is his goal and unclear if providing any real benefit -pain better controlled today (5) Epilepsy: Per patient, he has poor short-term memory due to "transient epilespy amnesia." Always prefers family in the room for conversation to help make sure he remembers. - Continue oxcarbazepine -supportive care (6) Constipation, chronic: Long-standing issue, now worsened by opioid use. He had trouble remembering taking his Miralax and other stool softeners, so he would not have BM for a week or more at a time. has now had 2-3 BMs in last 24 hours - Continue home Miralax BID - continue senna/docusate BID and Bisacodyl suppos daily prn (7) Hypokalemia: mildly low due to poor po intake -replace with KCl 20meq po x 1 (8) DVT prophylaxis: SCDs - Given severe anemia, concern for bleed, and low platelets, no chemical prophylaxis Dispo-remain hospitalized, monitor for need for repeat transfusions,dc on Sat AM likely now with direct transfer to airport for flight home to [place] Palliative Care consult appreciated Subjective Had a better day today. No bleeding. Pain better controlled. Was out of bed to chair for a couple hours todya. Appetite still very low. Moves his bowels at least twice Review of Systems Review of Systems: All systems reviewed & are unremarkable except as noted in HPI & below Physical Exam Constitutional: + thin; no acute distress Eyes: + anicteric sclerae ENMT: Ears: no hearing impairment Mouth: + tongue abnormality (protrudes to the right); no lip abnormality Neck: trachea midline, no thyromegaly Respiratory: normal respiratory effort, lungs clear to auscultation Cardiovascular: RRR, no murmur, no edema Chest (Breasts): Chest: normal inspection of chest Gastrointestinal (Abdomen): normal bowel sounds, soft, nontender, no hepatosplenomegaly Musculoskeletal: Extremities: extremities normal to inspection; no cyanosis and no clubbing Skin: no rashes, warm and dry Psychiatric: Orientation: alert, oriented to person, oriented to place and cooperative Eye Contact: good eye contact Motor Behavior: n tremor Speech: normal rate/rhythm/volume of speech Thought Process: goal directed th ought process Cognition: + recent memory not intact Lymphatic: no lymphedema Results & Data Vital Signs (Past 12 Hours) Vital Signs Temp Pulse Resp BP Pulse Ox 08/19/19 15:19 36.6 C 87 18 124/71 96 08/19/19 07:00 36.6 C 85 18 148/82 H 98 Laboratory Results 08/19/19 08/19/19 08/16/19 Range/Units 08:25 08:25 08:18 WBC 4.09 L (4.8-10.8) K/uL RBC 2.58 L (4.7-6.1) M/uL Hgb 7.9 L (14.0-18.0) g/dL Hct 24.3 L (42-52) % MCV 94.2 (80-100) fL MCH 30.6 (25-34) pg MCHC 32.5 (32-36) g/dL RDW Std Deviation 70.9 H (36.4-46.3) fL RDW Coeff of Douglas 21.8 H (11.5-14.5) % Plt Count 24 L* (130-400) K/uL MPV 9.3 (7.4-10.4) fL Absolute Nucleated RBC 0.40 H (0-0) K/uL Nucleated RBC % (auto) 9.7 % Neutrophils % (Manual) 64.8 % Lymphocytes % (Manual) 16.7 % Monocytes % (Manual) 10.5 % Basophils % (Manual) 0.9 % Metamyelocytes % (Man) 5.3 % Myelocytes % (Man) 0.9 % Blast Cells % (Manual) 0.9 % Neutrophils # (Manual) 2.65 (1.4-6.5) K/uL Total Absolute Neuts 2.65 (1.4-6.5) K/uL Lymphocytes # (Manual) 0.68 L (1.2-3.4) K/uL Total Abs Lymphocytes 0.68 L (1.2-3.4) K/uL Monocytes # (Manual) 0.43 (0.11-0.59) K/uL Basophils # (Manual) 0.04 (0-0.2) K/uL Metamyelocytes # (Man) 0.22 H (0-0) K/uL Myelocytes # (Manual) 0.04 H (0-0) K/uL Blast Cells # (Man) 0.04 H (0-0) K/uL Blood Smear Review Platelet Estimate SIGNIFIC DECREASED (Normal) Polychromasia 1+ Tear Drop Cells 1+ Sodium 138 (136-145) mmol/L Potassium 3.4 L (3.5-5.1) mmol/L Chloride 103 (98-107) mmol/L Carbon Dioxide 30 (21-32) mmol/L Anion Gap 5.0 (3-11) BUN 19 H (7-18) mg/dl Creatinine 0.83 (0.6-1.4) mg/dl Est Cr Clr Drug Dosing 99.0 ml/min Est GFR ( Amer) 114.0 Est GFR (Non-Af Amer) 98.4 BUN/Creatinine Ratio 23.0 H (10-20) Glucose 101 H (70-99) mg/dl Calcium 9.5 (8.5-10.1) mg/dl Crossmatch See Detail PG Care Time/CCT Total # of Minutes Spent Total Time Spent with Patient: Total time spent is greater than 50% in coordination of care (as documented) at patient's floor/unit and/or counseling patient: (1) Anemia Anemia type: unspecified type Qualified Code(s): D64.9 - Anemia, unspecified
[2019-08-19] MEDS: ENZALUTAMIDE 40 MG PO SCH (20:03)
[2019-08-20 07:32] LABS: BUN Creatinine Ratio 29.6 (10-20); Creatinine Clr Calc Pharmacy 106.2 ml/min; Est GFR (African American) 117.6; Est GFR (Non-African American) 101.4; Potassium 3.8 mmol/L (3.5-5.1)
[2019-08-20 07:35] LABS: Anisocytosis Present; Basophils # (auto) 0.04 K/uL (0-0.2); Basophils % (auto) 0.9 %; Eosinophils # (auto) 0.08 K/uL (0-0.5); Eosinophils % (auto) 1.8 %; Hematocrit (blood only) 23.1 % (42-52); Hemoglobin 7.4 g/dL (14.0-18.0); Immature Granulocytes # (auto) 0.26 K/uL (0.00-0.02); Immature Granulocytes % (auto) 5.9 %; Lymphocytes # (auto) 1.44 K/uL (1.2-3.4); Lymphocytes % (auto) 32.7 %; Mean Corpuscular Hemoglobin 30.7 pg (25-34); Mean Corpuscular Volume 95.9 fL (80-100); Mean Platelet Volume 10.4 fL (7.4-10.4); Monocytes # (auto) 0.55 K/uL (0.11-0.59); Monocytes % (auto) 12.5 %; Neutrophils # (auto) 2.03 K/uL (1.4-6.5); Neutrophils % (auto) 46.2 %; Nucleated RBC # (auto) 0.58 K/uL (0-0); Nucleated RBC % (auto) 13.1 %; Platelet Count 20 K/uL (130-400); Platelet Estimate SIGNIFIC DECREASED (Normal); RDW Coefficient of Variation 21.7 % (11.5-14.5); Red Blood Count 2.41 M/uL (4.7-6.1)
[2019-08-20] MEDS: MoRPHine SULFATE CR 15 MG TABCR PO SCH ×2 (09:29→21:12)
[2019-08-20] MEDS: OXcarbazepine 150 MG TABLET PO SCH ×2 (09:29→21:15)
[2019-08-20] MEDS: DOCUSATE SODIUM/SENNA 50/8.6MG TAB PO SCH ×2 (09:29→21:13)
[2019-08-20] MEDS: POLYETHYLENE (MIRALAX) 17 GM PACK PO SCH ×2 (09:29→21:16)
[2019-08-20] MEDS: MoRPHine SULFATE IR 15 MG TAB (IMMEDIATE RELEASE) PO PRN (11:37)
[2019-08-20] MEDS: MoRPHine SULFATE IR 15 MG TAB (IMMEDIATE RELEASE) PO SCH ×2 (16:36→21:28)
[2019-08-20] MEDS: MoRPHine SULFATE 2 MG/ML CARP IV PRN ×2 (20:31→23:26)
[2019-08-20] MEDS: ENZALUTAMIDE 40 MG PO SCH (21:14)
--- NOTE | 2019-08-20 22:49 | Hospitalist Progress Note ---
Date of Service August 20, 2019 Assessment & Plan (1) Anemia: Hemoglobin was 4.7 on admission. Ddx includes myelophthisis (replacement of bone marrow by prostate cancer cells), other bone marrow process, hemolytic process, chemotherapy side effect, or bleeding. - Transfused 3 units PRBCs and had improvement in Hgb up to 7.9 and remained stable x 3 days in a row -Hemoglobin today dropped slightly to 7.4, no bleeding anywhere noted - CT a/p per oncology to look for RP bleed is negative for bleeding, and no mention of blood/hematoma in lumbar CT - Fecal occult stool still pending, had BM but not yet collected - Continue Xtandi (enzalutamide) per oncology -Oncology thinks most likely has prostate CA invasion into marrow -follow CBC in AM and transfuse for hgb<7 -We will type and cross for 2 units in the morning and likely will transfuse in preparation for his trip back to [place] in the next few days (2) Thrombocytopenia: Platelets have been low for months. Again, ddx includes myelophthisis, other bone marrow process, hemolytic process, vs. chemotherapy-induced. -- Recieved 2 unit platelets here and plts at 37k but now continue to trend downward to 20, no evidence of bleeding - Transfuse platelets if<15-20k or evidence of bleeding - Monitor for bleeding (3) Weakness: With 2/5 strength throughout in bilat LEs, symmetric on my exam Not able to ambulate recently CT lumbar spine shows progressive of skeletal metastasis, but no indication of spinal cord compromise. I believe this is mostly due to generalized weakness from his anemia and overall deconditioning from metastatic cancer, severe anemia - PT/OT evals ordered - Monitor neurologic evaluation - Consider MRI lumbar spine if any focal changes (4) Prostate cancer metastatic to bone: Diagnosed in 2017, though disease process seems to be rapidly progressing at this time. Discussed on 08/[address] Brewer. There was some concern patient may be forgetting his pills due to his epilepsy, but he told Dr. Brewer he has been taking his Xtandi consistently. If this is the case, this is bad news as his cancer is progressing despite treatment, and he may not have any other treatment options available. - Replete hgb and plts as above as needed - Palliative care consult for pain from bony mets as well as code discussion. -pt aware that he has a terminal condition and mentions going on palliative treatment once he returns home to [place] which is his goal -continue Morphine ER 30mg po bid with morphine IR 15mg po q6h which will be changed to a scheduled dosing as the patient has great difficulty with memory and is getting behind on pain as he forgets to ask for pain medicine -discussed care with Rad Onc Dr. foster and he discussed care with pt-will not finish out last three txs of XRT to the clivus as this would prevent him from getting home to [place] soon which is his goal and unclear if providing any real benefit (5) Epilepsy: Per patient, he has poor short-term memory due to "transient epilespy amnesia." Always prefers family in the room for conversation to help make sure he remembers. - Continue oxcarbazepine -supportive care (6) Constipation, chronic: Long-standing issue, now worsened by opioid use. He had trouble remembering taking his Miralax and other stool softeners, so he would not have BM for a week or more at a time. has now had 2-3 BMs in last 1-2 days -Continue MiraLAX twice daily - continue senna/docusate BID and Bisacodyl suppos daily prn (7) Hypokalemia: mildly low due to poor po intake-now resolved with replacement (8) DVT prophylaxis: SCDs - Given severe anemia, concern for bleed, and low platelets, no chemical prophylaxis Dispo-remain hospitalized, monitor for need for repeat transfusions, discharge now up in the air as far as flight plans-family may change the flight from Saturday to Saturday so that he can now have a direct flight from [facility] to [place] to avoid multiple layovers as originally planned cut out worker navigator and case management are involved and the [facility] is paying for the patient and his family's transportation and travel costs Palliative Care consult appreciated-palliative care plans to provide a letter with documentation as to the patient's condition and ability to fly for the patient to carry with him while traveling Subjective Patient reports pain significant through the shoulders and back with even trying to put his pants on today with physical therapy. He still has low appetite. No bleeding from anywhere. No bowel movement today. Review of Systems Review of Systems: All systems reviewed & are unremarkable except as noted in HPI & below Physical Exam Constitutional: + thin; no acute distress Eyes: + anicteric sclerae ENMT: Ears: no hearing impairment Mouth: + tongue abnormality (protrudes to the right); no lip abnormality Neck: trachea midline, no thyromegaly Respiratory: normal respiratory effort, lungs clear to auscultation Cardiovascular: RRR, no murmur, no edema Chest (Breasts): Chest: normal inspection of chest Gastrointestinal (Abdomen): normal bowel sounds, soft, nontender, no hepatosplenomegaly Musculoskeletal: Extremities: extremities normal to inspection; no cyanosis and no clubbing Skin: no rashes, warm and dry Neurologic: + focal motor deficit (2/5 strength throughout LEs bilat, 4/5 throughout UEs bilat) and awake; + CN's not intact (2-12 intact except with protrusion on tongue to the right) Psychiatric: Orientation: alert, oriented to person, oriented to place and cooperative Eye Contact: good eye contact Motor Behavior: n tremor Speech: normal rate/rhythm/volume of speech Thought Process: goal directed thought process Cognition: + recent memory not intact Lymphatic: no lymphedema Results & Data Vital Signs (Past 12 Hours) Vital Signs Temp Pulse Resp BP Pulse Ox 08/20/19 15:31 36.9 C 83 19 125/69 97 Laboratory Results 08/20/19 08/20/19 08/16/19 Range/Units 06:28 06:28 08:18 WBC 4.40 L (4.8-10.8) K/uL RBC 2.41 L (4.7-6.1) M/uL Hgb 7.4 L (14.0-18.0) g/dL Hct 23.1 L (42-52) % MCV 95.9 (80-100) fL MCH 30.7 (25-34) pg MCHC 32.0 (32-36) g/dL RDW Std Deviation 71.0 H (36.4-46.3) fL RDW Coeff of Douglas 21.7 H (11.5-14.5) % Plt Count 20 L* (130-400) K/uL MPV 10.4 (7.4-10.4) fL Immature Gran % (Auto) 5.9 % Neut % (Auto) 46.2 % Lymph % (Auto) 32.7 % [place] % (Auto) 12.5 % Eos % (Auto) 1.8 % Baso % (Auto) 0.9 % Immature Gran # (Auto) 0.26 H (0.00-0.02) K/uL Neut # (Auto) 2.03 (1.4-6.5) K/uL Lymph # (Auto) 1.44 (1.2-3.4) K/uL [place] # (Auto) 0.55 (0.11-0.59) K/uL Eos # (Auto) 0.08 (0-0.5) K/uL Baso # (Auto) 0.04 (0-0.2) K/uL Absolute Nucleated RBC 0.58 H (0-0) K/uL Nucleated RBC % (auto) 13.1 % Platelet Estimate SIGNIFIC DECREASED (Normal) Anisocytosis Present Sodium 138 (136-145) mmol/L Potassium 3.8 (3.5-5.1) mmol/L Chloride 103 (98-107) mmol/L Carbon Dioxide 30 (21-32) mmol/L Anion Gap 5.0 (3-11) BUN 23 H (7-18) mg/dl Creatinine 0.77 (0.6-1.4) mg/dl Est Cr Clr Drug Dosing 106.2 ml/min Est GFR ( Amer) 117.6 Est GFR (Non-Af Amer) 101.4 BUN/Creatinine Ratio 29.6 H (10-20) Glucose 94 (70-99) mg/dl Calcium 9.0 (8.5-10.1) mg/dl Magnesium 2.0 (1.8-2.4) mg/dl Crossmatch See Detail PG Care Time/CCT Total # of Minutes Spent Total Time Spent with Patient: Total time spent is greater than 50% in coordination of care (as documented) at patient's floor/unit and/or counseling p atient: (1) Anemia Anemia type: unspecified type Qualified Code(s): D64.9 - Anemia, unspecified
[2019-08-20] MEDS ORDERED: SODIUM CHLORIDE 0.9% 250 ML IV PRN (22:50)
[2019-08-20] MEDS ORDERED: MoRPHine SULFATE 2 MG/ML CARP IV STA (23:16)
[2019-08-21] MEDS: MoRPHine SULFATE IR 15 MG TAB (IMMEDIATE RELEASE) PO SCH ×4 (03:45→21:38)
[2019-08-21] MEDS: MoRPHine SULFATE 2 MG/ML CARP IV PRN (04:37)
[2019-08-21] MEDS: POLYETHYLENE (MIRALAX) 17 GM PACK PO SCH ×2 (08:23→20:12)
[2019-08-21] MEDS: MoRPHine SULFATE CR 15 MG TABCR PO SCH ×2 (08:25→20:19)
[2019-08-21 08:26] LABS: Hematocrit (blood only) 22.6 % (42-52); Hemoglobin 7.3 g/dL (14.0-18.0); Mean Corpuscular Hemoglobin 31.2 pg (25-34); Mean Corpuscular Hgb Conc 32.3 g/dL (32-36); Mean Corpuscular Volume 96.6 fL (80-100); Mean Platelet Volume 11.2 fL (7.4-10.4); Nucleated RBC % (auto) 10.1 %; Platelet Count 19 K/uL (130-400); RDW Coefficient of Variation 21.6 % (11.5-14.5); RDW Standard Deviation 72.7 fL (36.4-46.3); Red Blood Count 2.34 M/uL (4.7-6.1); White Blood Count 3.97 K/uL (4.8-10.8)
[2019-08-21] MEDS: OXcarbazepine 150 MG TABLET PO SCH ×2 (08:27→20:13)
[2019-08-21] MEDS: DOCUSATE SODIUM/SENNA 50/8.6MG TAB PO SCH ×2 (08:27→20:12)
[2019-08-21 08:33] LABS: ALC (manual) 0.74 K/uL (1.2-3.4); Anisocytosis Present; Eosinophils # (manual) 0.07 K/uL (0-0.5); Eosinophils % (manual) 1.8 %; Lymphocytes # (manual) 0.74 K/uL (1.2-3.4); Lymphocytes % (manual) 18.6 %; Metamyelocytes # (manual) 0.04 K/uL (0-0); Metamyelocytes % (manual) 0.9 %; Monocytes # (manual) 0.39 K/uL (0.11-0.59); Monocytes % (manual) 9.7 %; Myelocytes # (manual) 0.14 K/uL (0-0); Myelocytes % (manual) 3.5 %; Neutrophils % (manual) 65.5 %; Polychromasia 1+; Tear Drop Cells 2+
[2019-08-21] MEDS ORDERED: SODIUM CHLORIDE 0.9% 250 ML IV PRN (09:51)
--- NOTE | 2019-08-21 13:35 | Palliative Care Progress Note ---
Date of Service August 21, 2019 Assessment & Plan (1) Goals of care, counseling/discussion: -Multiple lengthy visits to patient's room to discuss prognosis, goals, terminal repatriation, symptom management, etc. First met with patient and his , Jennifer. Met second time with patient, his Jennifer, brother Delta, and sister Shauna. -During first meeting with patient and , discussed that prognosis is likely days to weeks. Patient is transfusion dependent, requiring more pain medication to be comfortable, is weak to the point of not being able to ambulate, more lethargy, etc. Patient and aware that patient is returning home in order to pass away comfortably. WE talked about the flight options and I stated that our team has great concern about patient's ability to transfer himself to wheelchair and into vehicle to travel to airport. They verbalized understanding and state that patient will be flying with his brother and . -Returned to room and spoke with patient's brother outside of room along with director case. Again, relayed the prognosis and stated that window of time to get patient home is extremely narrow. Again shared my concern of the patient's weakness. Delta verbalizes understanding and states he will be there to help with transfers. -Discussed code status-- patient's brother is aware that patient would not survive a cardiac arrest at this point. We discussed adding to the "Fit to Fly" letter that this is a terminal repatriation and if patient should pass away during the flight that the plan should not divert and should continue to [place]. HE will discuss this with the patient and we will touch base again. -Patient's brother is going to try to get the earliest direct flight that he can find from [facility] to [place]. He will let our team know as soon as they have made arrangements. -Patient's sister Shauna was to pick up driver patient's pain medications so he has them for the trip. Patient's pain is controlled at this time while he is resting in bed. -Returned to the room yet again this afternoon with patient, his , brother Delta, and Dr. Ye for part of visit. -Discussed symptom management and what medications to take along on trip. -Discussed the fit to fly letter along with the terminal repatriation. Patient is in agreement with NOT diverting the plane in case of a terminal event and continuing home to [place]. and brother in agreement as well. -Patient will be discharged between 22-2300 this evening. (2) Prostate cancer metastatic to bone: (3) Cancer associated pain: (4) Weakness: (5) Pancytopenia: (6) Epilepsy: (7) Constipation, chronic: Subjective Patient is awake and oriented today. He does have some periods of mild confusion. 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 Jennifer at bedside. Then during second visit patient's brother and sister also present along with director case. Review of Systems Review of Systems: C/o severe weakness, c/o severe pain when trying to get out of bed or being repositioned. No N/V, no chest pain, no SOB. Physical Exam Constitutional: + ill appearing and + lethargic (drowsy); no acute distress ENMT: external ear and nose normal, oropharynx normal Respiratory: normal respiratory effort; no labored breathing room air Cardiovascular: Rate/Rhythm: regular rate and regular rhythm Neurologic: moves all extremities and awake Psychiatric: Orientation: oriented to person, oriented to place and oriented to time; + not alert (slightly drowsy) Results & Data Vital Signs (Past 12 Hours) Vital Signs Temp Pulse Pulse Resp BP BP BP 08/21/19 11:57 36.8 C 85 18 144/80 H 08/21/19 11:42 36.9 C 80 18 130/73 08/21/19 11:24 36.8 C 89 18 124/71 08/21/19 11:23 36.8 C 89 18 124/71 08/21/19 11:15 36.8 C 89 18 124/71 08/21/19 10:45 36.9 C 82 18 135/73 08/21/19 10:38 36.8 C 87 20 132/77 08/21/19 10:15 36.8 C 90 18 137/72 08/21/19 07:34 36.8 C 89 18 132/75 Pulse Ox 08/21/19 11:57 100 08/21/19 11:42 99 08/21/19 11:24 99 08/21/19 11:23 99 08/21/19 11:15 98 08/21/19 10:45 100 08/21/19 10:38 98 08/21/19 10:15 99 08/21/19 07:34 99 Supervising Physician Co-Signing Physician Notes Chart reviewed, patient seen and examined along with HAMILTON Rutherford. Patient's and brother at bedside. Patient currently receiving a blood transfusion so that he can tolerate the change in altitude for his flight home. PE: Patient awake and alert, short-term memory loss HEENT: EOMI, hearing within normal limits Respirations: Unlabored Abdomen: Less distended Extremities: Generalized weakness Neuro: Positive short-term memory loss, no other focal deficits, generalized weakness Agree with above note, assessment and plan as per HAMILTON Rutherford PG Care Time/CCT Prolonged Care Time Prolonged Care Time: Yes Total Prolonged Care Time: 100 Time Spent Midlevel 100 minutes during three separate visits with >50% of the time spent at bedside with patient,family, physician, and case management discussing plan of care.
--- NOTE | 2019-08-21 14:33 | Discharge Summary ---
Date of Service August 21, 2019 Admission HPI Per Admitting Provider 54yo M w/ hx of metastatic prostate cancer who presents for weakness. Per patient, he is just generally weaker than usual. Even as of a few days ago, he was able to walk around and shower/bath on his own. In the last few days, he has become progressively weaker (most notably in his legs, but all over) to the point that he cannot stand up and walk on his own at this point. He denies any fevers or chills. He feels the right leg may be weaker than the left, but overall does not have any focal weakness. He otherwise has no dysphagia, no focal upper body weakness, no changes in sensation. Principal Diagnosis Metastatic prostate cancer, lower extremity weakness, severe anemia, thrombocytopenia Discharge Exam Constitutional + thin; no acute distress Eyes + anicteric sclerae ENMT Ears: no hearing impairment Mouth: no lip abnormality Neck trachea midline, no thyromegaly Respiratory normal respiratory effort, lungs clear to auscultation Cardiovascular RRR, no murmur, no edema Chest (Breasts) Chest: normal inspection of chest Gastrointestinal (Abdomen) normal bowel sounds, soft, nontender, no hepatosplenomegaly Musculoskeletal Extremities: extremities normal to inspection; no cyanosis and no clubbing Skin no rashes, warm and dry Neurologic awake Psychiatric Orientation: alert, oriented to person, oriented to place and cooperative Eye Contact: good eye contact Motor Behavior: n tremor Speech: normal rate/rhythm/volume of speech Thought Process: goal directed thought process Cognition: + recent memory not intact Lymphatic no lymphedema Discharge Data Allergies Allergy/AdvReac Type Severity Reaction Status Date / Time No Known Allergies Allergy Verified 08/16/19 08:12 Consultations 08/16/19 09:03 ED Decision to Admit Stat 08/16/19 12:14 Consult Hematology Routine 08/16/19 14:37 Consult Palliative Care Routine Ordered Studies 08/16/19 08:02 CT head/brain wo con Stat CT lumbar spine wo con Stat 08/16/19 14:38 CT abd pelvis wo con Urgent Chest xray Hospital Course (1) Anemia: Hemoglobin was 4.7 on admission. Ddx includes myelophthisis (replacement of bone marrow by prostate cancer cells), other bone marrow process, hemolytic process, chemotherapy side effect, or bleeding. - Transfused 3 units PRBCs and had improvement in Hgb up to 7.9 and remained stable x 3 days in a row -Hemoglobin today dropped slightly to 7.3 no bleeding anywhere noted - CT a/p per oncology to look for RP bleed is negative for bleeding, and no mention of blood/hematoma in lumbar CT - Fecal occult stool still never was collected - Continue Xtandi (enzalutamide) per oncology -Oncology thinks most likely has prostate CA invasion into marrow and no options for treatment left here as his insurance did not cover chemotherapy in the [place] -transfused another 2 units of PRBCs on 08/21/19 -follow CBC in [place] if further transfusions desired (2) Thrombocytopenia: Platelets have been low for months. Again, ddx includes myelophthisis, other bone marrow process, hemolytic process, vs. chemotherapy-induced. -- Recieved 2 unit platelets here upon initial admission and plts at 37k but now continue to trend downward to 19, no evidence of bleeding - Transfused platelets on 08/21/19 - Monitor for bleeding (3) Weakness: With 2/5 strength throughout in bilat LEs, symmetric on my exam Not able to ambulate recently CT lumbar spine shows progressive of skeletal metastasis, but no indication of spinal cord compromise. I believe this is mostly due to generalized weakness from his anemia and overall deconditioning from metastatic cancer, severe anemia -Physical therapist worked with him and not able to dress self without significant pain, not able to walk. (4) Prostate cancer metastatic to bone: Diagnosed in 2017, though disease process seems to be rapidly progressing at this time. Discussed on 08/[address] Brewer. There was some concern patient may be forgetting his pills due to his epilepsy, but he told Dr. Brewer he has been taking his Xtandi consistently. If this is the case, this is bad news as his cancer is progressing despite treatment, and he may not have any other treatment options available. - Replete hgb and plts as above as needed - Palliative care consult for pain from bony mets as well as code discussion. -pt aware that he has a terminal condition and mentions going on palliative treatment once he returns home to [place] which is his goal -continue Morphine ER 30mg po bid with morphine IR 15mg po q6h as needed -discussed care with Rad Onc Dr. Walters and he discussed care with pt-will not finish out last three txs of XRT to the clivus as this would prevent him from getting home to [place] soon which is his goal and unclear if providing any real benefit Place Jim catheter for travel and can keep this in if desired after return to [place] (5) Epilepsy: Per patient, he has poor short-term memory due to "transient epilespy amnesia." Always prefers family in the room for conversation to help make sure he remembers. - Continue oxcarbazepine -supportive care (6) Constipation, chronic: Long-standing issue, now worsened by opioid use. He had trouble remembering taking his Miralax and other stool softeners, so he would not have BM for a week or more at a time. has now had 2-3 BMs in last 1-2 days -Continue MiraLAX twice daily - continue senna/docusate BID and Bisacodyl suppos daily prn (7) Hypokalemia: mildly low due to poor po intake-now resolved with replacement (8) DVT prophylaxis: SCDs - Given severe anemia, concern for bleed, and low platelets, no chemical prophylaxis Dispo-stable for discharge tonight with family -traveling to [facility] airport for flight to [place] for repatriation service worker helper navigator and case management are involved and the [facility] [place] is paying for the patient and his family's transportation and travel costs Palliative Care consult appreciated-palliative care provided a letter of fitness for flying Total Time Total Time Spent Total Time Spent (In Minutes): 45 min Total Time Includes: Examination of the Patient, Discharge Planning and Medication Reconciliation Discharge Plan Discharge Items Patient Disposition: Hospice - Home Reason For Visit: ANEMIA Discharge Diagnosis: Metastatic prostate cancer Condition on Discharge: Fair Activity: As commented below Bathing: No limitations Exercise/Sports: As tolerated Non-emergency contact: Primary Care Provider Call non-emergency contact if: you have any medication questions, your symptoms worsen, your pain is not controlled, your pain is worsening, your pain is unusual for you and your pain is concerning for you Follow-up/Referrals: PCP,NO [Primary Care Provider] - Diet: Regular Addtl Attending Provider Instructions: You were admitted for weakness in your legs and severe anemia, low platelets. This is all realted to your metastatic prostate cancer. You received blood transfusions with some improvement which will be temporary. Continue long acting morphine twice a day for pain control, and you can take the short acting morphine as needed for breakthrough pain. Please continue to take laxatives to keep your bowels moving. God bless you- we're happy to be getting you back home again to [place]! -Dr. Machado Pending Studies at Discharge: No Stand-Alone Forms: My [facility] Medications and DC Order Prescriptions: New prochlorperazine maleate 10 mg tablet 10 mg PO Q6H PRN (Reason: Nausea) Qty: 20 RF: 0 ondansetron 8 mg tablet,disintegrating 8 mg PO PRN PRN (Reason: Nausea) Qty: 20 RF: 0 Continued polyethylene glycol 3350 [Miralax] 17 gram/dose powder 17 gm PO DAILY PRN (Reason: Constipation) RF: 0 oxcarbazepine [Trileptal] 300 mg Tablet 300 mg PO BID RF: 0 Xtandi 40 mg capsule 160 mg PO DAILY@1999 RF: 0 morphine [MS Contin] 30 mg tablet extended release 30 mg PO Q12H PRN (Reason: Pain) Qty: 28 RF: 0 morphine 15 mg tablet 15 mg PO QID PRN (Reason: Pain) Qty: 30 RF: 0 Discontinued multivitamin Tablet 1 tab PO QAM RF: 0 potassium chloride 10 mEq tablet extended release 10 meq PO DAILY Qty: 30 RF: 1 Zoladex 3.6 mg Implant 3.6 mg SUBCUT MONTHLY RF: 0 Discharge Orders: Discharge Order (Routine); Ordered 08/21/19 Ordered By: Chantal Machado Admission Data Admit Date/Time: 08/16/19 09:36 Attending Provider: Chantal Machado Admit Provider: Maxwell Rojas Primary Care Provider: PCP,NO Other Providers: Maxwell Rojas ; Giorgi Brewer ; Sharona Ye
[2019-08-21] MEDS: ENZALUTAMIDE 40 MG PO SCH (20:10)
== END 2019-08-22 01:00 | disposition hospice, home (50) | DRG 723 ==
LOC: ED 07:34 → 2W 09:36 → SUATTDRO 09:36 → 2W 11:11